=== PATIENT | female | born 1945 | race Caucasian/White ===

== ENCOUNTER 2019-04-10 13:00 | Emergency (ER) | payer BC, OTHER ==
[2019-04-10] MEDS ORDERED: HYDROCODONE/APAP 10/325 TAB ONE (14:01)
[2019-04-10] MEDS ORDERED: predniSONE 20 MG TAB ONE (14:01)
[2019-04-10] MEDS ORDERED: IBUPROFEN 200 MG TAB PO ONE (14:03)
[2019-04-10] MEDS ORDERED: IBUPROFEN 400 MG TAB ONE (14:03)
--- NOTE | 2019-04-10 15:18 | RAD REPORT ---
EXAM DESCRIPTION: RAD - Foot Right 3 View - 04/10/2019 2:52 pm CLINICAL HISTORY: PAIN COMPARISON: No comparisons FINDINGS: A single lag screw with bony fusion is seen spanning the first MTP joint. Mild soft tissue swelling is seen along the lateral margin forefoot. A prominent plantar calcaneal spur is evident. N o acute fracture seen.
--- NOTE | 2019-04-10 16:14 | ER ---
Nurse's Notes [facility] Name: Marielena Leos Age: 73 yrs Sex: Female : 1945 Arrival Date: 04/10/2019 Time: 13:04 Bed 18 Private MD: Diagnosis: Calcaneal spur, right foot;Plantar Fasciitus Presentation: 04/10 13:24 Presenting complaint: Patient states: Intermittent pin pricking sensation to R foot x ss 3-4 weeks. Pt reports discomfort is much worse when laying down for a period of time and then getting back up. Transition of care: patient was not received from another setting of care. Onset of symptoms is unknown. Risk Assessment: Do you want to hurt yourself or someone else? Patient reports no desire to harm self or others. Initial Sepsis Screen: Does the patient meet any 2 criteria? No. Patient's initial sepsis screen is negative. Does the patient have a suspected source of infection? No. Patient's initial sepsis screen is negative. Care prior to arrival: None. 13:24 Method Of Arrival: Ambulatory ss 13:24 Acuity: MIHIR 5 ss Historical: - Allergies: 13:27 Codeine; ss - Home Meds: 13:51 amitriptyline 75 mg Oral tab 1 tab once daily [Active]; baclofen 10 mg Oral tab 1 tab 3 tw2 times per day [Active]; gabapentin 600 mg oral tab 1 tab 3 times per day [Active]; memantine 10 mg oral tab 1 tab 2 times per day [Active]; Zoloft 50 mg Oral tab 1 tab once daily [Active]; - PMHx: 13:27 Fibromyalgia; belkis-prince; hypertension (resolved); ss - Immunization history:: Adult Immunizations up to date. - Social history:: Smoking status: Patient/guardian denies using tobacco. - Ebola Screening: : Patient denies exposure to infectious person Patient denies travel to an Ebola-affected area in the 21 days before illness onset. Screenin:29 Abuse screen: Denies threats or abuse. Nutritional screening: No deficits noted. tw2 Tuberculosis screening: No symptoms or risk factors identified. Fall Risk Secondary diagnosis (15 points) impaired mobility. Assessment: 13:29 General: Appears in no apparent distress. Behavior is calm, cooperative, appropriate tw2 for age. Pain: Complains of pain in right foot and left foot. Neuro: Level of Consciousness is awake, alert, obeys commands, Oriented to person, place, time, situation. Cardiovascular: Patient's skin is warm and dry. Respiratory: Airway is patent Respiratory effort is even, unlabored, Respiratory pattern is regular, symmetrical. GI: No signs and/or symptoms were reported involving the gastrointestinal system. : No signs and/or symptoms were reported regarding the genitourinary system. EENT: No signs and/or symptoms were reported regarding the EENT system. Derm: No signs and/or symptoms reported regarding the dermatologic system. Musculoskeletal: Range of motion: intact in all extremities. 14:46 Reassessment: Patient appears in no apparent distress at this time. Patient and/or tw2 family updated on plan of care and expected duration. Pain level reassessed. Patient is alert, oriented x 3, equal unlabored respirations, skin warm/dry/pink. xray at bedside at this time. Patient states feeling better. 15:47 Reassessment: Patient appears in no apparent distress at this time. Patient and/or tw2 family updated on plan of care and expected duration. Pain level reassessed. Patient is alert, oriented x 3, equal unlabored respirations, skin warm/dry/pink. 15:48 Reassessment: Patient appears in no apparent distress at this time. Patient and/or tw2 family updated on plan of care and expected duration. Pain level reassessed. Patient is alert, oriented x 3, equal unlabored respirations, skin warm/dry/pink. 16:26 Reassessment: Patient appears in no apparent distress at this time. Patient and/or tw2 family updated on plan of care and expected duration. Pain level reassessed. Patient is alert, oriented x 3, equal unlabored respirations, skin warm/dry/pink. Patient states feeling better. Vital Signs: 13:27 BP 150 / 97; Pulse 88; Resp 16; Temp 98.4(O); Pulse Ox 98% on R/A; Weight 69.85 kg; ss Height 5 ft. 6 in. (167.64 cm); Pain 5/10; 13:56 BP 129 / 84; Pulse 77; Resp 16; Temp 98.1(TE); Pulse Ox 96% on R/A; mh5 14:51 BP 131 / 76; Pulse 66; Resp 17; Pulse Ox 95% on R/A; Pain 3/10; tw2 15:47 BP 125 / 64; Pulse 73; Resp 17; Pulse Ox 96% on R/A; tw2 16:26 BP 129 / 72; Pulse 69; Resp 17; Pulse Ox 99% on R/A; tw2 13:27 Body Mass Index 24.86 (69.85 kg, 167.64 cm) ED Course: 13:04 Patient arrived in ED. rg4 13:10 Jose Green MD is Attending Physician. kdr 13:24 Bed in low position. Call light in reach. tw2 13:26 Triage completed. ss 13:27 Arm band placed on left wrist. ss 13:28 Darcie Montano, RN is Primary Nurse. tw2 14:47 X-ray completed. Portable x-ray completed in exam room. Patient tolerated procedure jb2 well. 14:50 Foot Right 3 View XRAY In Process Unspecified. EDMS 16:27 No provider procedures requiring assistance completed. Patient did not have IV access tw2 during this emergency room visit. Administered Medications: 13:49 Drug: [place] 10 mg-325 mg 1 tabs Route: PO; tw2 14:47 Follow up: Response: No adverse reaction; Pain is decreased tw2 13:49 Drug: predniSONE 40 mg Route: PO; tw2 14:47 Follow up: Response: No adverse reaction tw2 13:49 Not Given (Patient Refused; pt states "i take other medication that i shouldnt take tw2 that with"): Ibuprofen 600 mg PO once 16:26 Drug: [place] (7.5 mg-325 mg) 1 tabs Route: PO; tw2 16:27 Follow up: Response: No adverse reaction; Pain is decreased tw2 Outcome: 16:13 Discharge ordered by . kdr 16:27 Discharged to home ambulatory, with family. tw2 16:27 Condition: stable 16:27 Discharge instructions given to patient, family, Instructed on discharge instructions, follow up and referral plans. no drinking with medication, no driving heavy equipment, medication usage, Demonstrated understanding of instructions, follow-up care, medications, Prescriptions given X 3. 16:28 Patient left the ED. tw2 Signatures: Dispatcher [employer] EDMS Jose Green MD MD [facility] Artie Russo jb2 Raven Alexander RN RN Darcie Montano, RN RN tw2 Yancy Aparicio 4 [facility]
--- NOTE | 2019-04-10 16:14 | EDPHYS ---
Physician Documentation [facility] Name: Marielena Leos Age: 73 yrs Sex: Female : 1945 Arrival Date: 04/10/2019 Time: 13:04 Bed 18 Private MD: ED Physician Jose Green HPI: 04/11 07:32 This 73 yrs old Female presents to ER via Ambulatory with complaints of Foot kdr Pain. 07:32 The patient presents with pain, that is chronic. The complaints affect the right foot. kdr Context: The problem was sustained at home, resulted from an unknown cause, Mechanism of Injury: the patient can partially bear weight, the patient is able to ambulate, with mild difficulty. Onset: The symptoms/episode began/occurred Has been ongoing for a year or more but acutely worse in the last 3-4 weeks without known reason. Modifying factors: The symptoms are alleviated by elevation of extremity, sitting, the symptoms are aggravated by weight bearing, movement. Associated signs and symptoms: The patient has no apparent associated signs or symptoms. Severity of symptoms: At their worst the symptoms were moderate, in the emergency department the symptoms are unchanged. The patient has experienced similar episodes in the past, chronically. The patient has not recently seen a physician. Historical: - Allergies: 04/10 13:27 Codeine; ss - Home Meds: 13:51 amitriptyline 75 mg Oral tab 1 tab once daily [Active]; baclofen 10 mg Oral tab 1 tab 3 tw2 times per day [Active]; gabapentin 600 mg oral tab 1 tab 3 times per day [Active]; memantine 10 mg oral tab 1 tab 2 times per day [Active]; Zoloft 50 mg Oral tab 1 tab once daily [Active]; - PMHx: 13:27 Fibromyalgia; belkis-prince; hypertension (resolved); ss - Immunization history:: Adult Immunizations up to date. - Social history:: Smoking status: Patient/guardian denies using tobacco. - Ebola Screening: : Patient denies exposure to infectious person Patient denies travel to an Ebola-affected area in the 21 days before illness onset. ROS: 04/11 07:32 MS/extremity: Positive for pain, of the heel of right foot. kdr 07:36 Constitutional: Negative for fever, chills, and weight loss. kdr Exam: 07:32 Musculoskeletal/extremity: Tender to calcaneus area. kdr 07:36 Constitutional: This is a well developed, well nourished patient who is awake, alert, kdr and in no acute distress. Vital Signs: 04/10 13:27 BP 150 / 97; Pulse 88; Resp 16; Temp 98.4(O); Pulse Ox 98% on R/A; Weight 69.85 kg; ss Height 5 ft. 6 in. (167.64 cm); Pain 5/10; 13:56 BP 129 / 84; Pulse 77; Resp 16; Temp 98.1(TE); Pulse Ox 96% on R/A; mh5 14:51 BP 131 / 76; Pulse 66; Resp 17; Pulse Ox 95% on R/A; Pain 3/10; tw2 15:47 BP 125 / 64; Pulse 73; Resp 17; Pulse Ox 96% on R/A; tw2 16:26 BP 129 / 72; Pulse 69; Resp 17; Pulse Ox 99% on R/A; tw2 13:27 Body Mass Index 24.86 (69.85 kg, 167.64 cm) ss MDM: 16:13 Patient medically screened. kdr 04/11 07:32 Data reviewed: vital signs, nurses notes, radiologic studies. Counseling: I had a kdr detailed discussion with the patient and/or guardian regarding: the historical points, exam findings, and any diagnostic results supporting the discharge/admit diagnosis, radiology results, the need for outpatient follow up. 04/10 13:42 Order name: Foot Right 3 View XRAY; Complete Time: 16:12 kdr Administered Medications: 04/10 13:49 Drug: [place] 10 mg-325 mg 1 tabs Route: PO; tw2 14:47 Follow up: Response: No adverse reaction; Pain is decreased tw2 13:49 Drug: predniSONE 40 mg Route: PO; tw2 14:47 Follow up: Response: No adverse reaction tw2 13:49 Not Given (Patient Refused; pt states "i take other medication that i shouldnt take tw2 that with"): Ibuprofen 600 mg PO once 16:26 Drug: [place] (7.5 mg-325 mg) 1 tabs Route: PO; tw2 16:27 Follow up: Response: No adverse reaction; Pain is decreased tw2 Disposition: 04/10/19 16:13 Discharged to Home. Impression: Calcaneal spur, right foot, Plantar Fasciitus. - Condition is Stable. - Discharge Instructions: Heel Spur, Plantar Fasciitis. - Prescriptions for Medrol (Richard) 4 mg Oral Tablets, Dose Pack - take 1 tablet by ORAL route as directed - follow package instructions; 1 packet. Ibuprofen 600 mg Oral Tablet - take 1 tablet by ORAL route every 6 hours As needed take with food; 30 tablet. Tramadol 50 mg Oral Tablet - take 1 tablet by ORAL route every 8 hours as needed; 12 tablet. - Medication Reconciliation Form, Thank You Letter, Prescription Opioid Use form. - Follow up: Private Physician; When: 2 - 3 days; Reason: If symptoms return, Further diagnostic work-up, Recheck today's complaints, Continuance of care, Re-evaluation by your physician. - Problem is an acute exacerbation. - Symptoms have improved. Signatures: Dispatcher [employer] EDMS Jose Green MD MD kdr Raven Alexander RN RN ss Darcie Montano RN RN tw2 Corrections: (The following items were deleted from the chart) 16:28 16:13 04/10/2019 16:13 Discharged to Home. Impression: Calcaneal spur, right foot; tw2 Plantar Fasciitus. Condition is Stable. Forms are Medication Reconciliation Form, Thank You Letter, Antibiotic Education, Prescription Opioid Use. Follow up: Private Physician; When: 2 - 3 days; Reason: If symptoms return, Further diagnostic work-up, Recheck today's complaints, Continuance of care, Re-evaluation by your physician. Problem is an acute exacerbation. Symptoms have improved. kdr
[2019-04-10] MEDS ORDERED: HYDROCODONE/APAP 7.5/325 MG TAB ONE (16:37)
== END 2019-04-10 16:28 | disposition home or self-care (01) ==
LOC: ER 13:00
DX: M77.31 Calcaneal spur, right foot (principal); M72.2 Plantar fascial fibromatosis
CPT/HCPCS: 99283; J7512

== ENCOUNTER 2022-10-04 09:17 | Emergency (ER) | payer OTHER ==
--- OUTSIDE RECORDS SUMMARY | 2022-10-04 09:24 | XMS REPORT | Continuity of Care Document ---
:1945 Author Organization [facility] t Address [address] [place] [address] Care Team Providers Name Role Phone Janusz Gross MD Primary Care Physician [phone] JIM MARTINEZ Attending Clinician Unavailable LIZ NAVARRO Attending Clinician Unavailable LAB90 Attending Clinician Unavailable Janusz Gross MD Attending Clinician Aguilar Banda MA Attending Clinician Unavailable Deon Milian MD Attending Clinician [phone] Cecily Lainez Attending Clinician William Gutiérrez MD Attending Clinician Bertin Arias MD Attending Clinician Angelia Remy Attending Clinician MD WILLIAM GUTIÉRREZ Attending Clinician Unavailable Maria M Pickett NP Attending Clinician Lilliana Giron MD Attending Clinician Kirstin Marks MA Attending Clinician Unavailable Lm Arthur RN Attending Clinician Unavailable Randa Reyna MA Attending Clinician Unavailable Rachel Perez MA Attending Clinician Unavailable Suma Bowman MA Attending Clinician Unavailable Carmencita Mg MA Attending Clinician Unavailable NAA MCARTHUR Attending Clinician Unavailable PEDRO PABLO HOLLAND Attending Clinician Unavailable JESSICA GRAHAM Attending Clinician Unavailable OLGA LIDIA MCKEON Attending Clinician Unavailable LINDA HAMEED Attending Clinician Unavailable LISA LOVE Admitting Clinician Unavailable WILLIAM GUTIÉRREZ Admitting Clinician Unavailable MD WILLIAM GUTIÉRREZ Admitting Clinician Unavailable Payers Payer Name Policy Type Policy Number Effective Date Expiration Date Fredo GUSTAFSON MA PPO 5 [id number] 2020 00:00:00 Problems Condition Condition Condition Status Onset Resolution Last Treating Co mments Source Name Details Category Date Date Treatment Clinician Date Primary Primary Disease Active 2021-10 Kaela hypertensi hypertensi 2-06 Se ybold on on 00:00: - 00 Externa l Other Other Disease Active 2021-10 Kaela insomnia insomnia 2-06 Seybol d 00:00: - 00 Externa l Chronic Chronic Disease Active 2021-10 Kaela bronchitis bronchitis 2-06 Se ybold 00:00: - 00 Externa l Anxiety Anxiety Disease Active 2021-10 Kaela 2-06 Seybold 00:00: - 00 Externa l Skin Skin Disease Active 2021-10 Kaela cancer of cancer of 2-06 Seyb old anterior anterior 00:00: - chest chest 00 Externa l Primary Primary Disease Active [facility] hypertensi hypertensi 07-13 [facility] on on 00:00: Hospita 00 l Mixed Mixed Disease Active [facility] hyperlipid hyperlipid 07-13 st emia emia 00:00: Hospita 00 l Colon Colon Disease Active [facility] cancer cancer 11-11 st screening screening 00:00: Hosp suhail 00 l Polyp of Polyp of Disease Active Metho di colon colon 11-11 st 00:00: Hospita 00 l Early Early Disease Active [facility] satiety satiety 11-11 st 00:00: Hospita 00 l Neuropathy Neuropathy Disease Active M ethodi [facility] st 00:00: Hospita 00 l Plantar Plantar Disease Active 2018-10 Overview: Meth fabiola fascial fascial - Formattin st fibromatos fibromatos 00:00: g of this Hospita is is 00 note l might be different from the original. 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 Family History Family Member Diagnosis Comments Start Date Stop Date Source Natural father Liver disease [facility] Natural mother COPD [facility] Natural mother Hypertension [facility] Social History Social Habit Start Date Stop Date Quantity Comments Source History SDOH Kaela Barajas ld - Alcohol Frequency Externa l History SDOH Kaela Barajas ld - Alcohol Std External Drinks History SDOH Kaela Barajas ld - Alcohol Binge External Tobacco use and 2022-07-13 2022-07-13 Smokeless tobacco [facility] exposure 00:00:00 00:00:00 non-user Hospital Alcohol intake 2022-07-13 2022-07-13 Current drinker Metho dist 00:00:00 00:00:00 of alcohol Hospital (finding) Alcohol Comment 2019-09-13 2019-09-13 one drink a month [facility] 00:00:00 00:00:00 Hospital Sex [birth year] At [birth year] Kaela Smallwood ybold - 00:00:00 00:00:00 External Smoking Status Start Date Stop Date Source Never smoked tobacco Kaela ribera - External Medications Ordered Filled Start Stop Current Ordering Indication Dosage Frequency Signature Comments Components Source Medication Medication Date Date Medication? Clinician (SIG) Name Name [place]-3 2021-10 Yes 1000mg Take 1,000 Ke lsey Fatty Acids 2-06 mg by Seybold (Fish Oil) 09:17: mouth 3 - 1000 MG 25 times Externa oral daily l Capsule Glucosamine 2021-10 Yes Take by Minh sey -[place]- 2-06 mouth Seybold Vit C-Mn 09:17: - (GLUCOSAMIN 25 Externa E 1500 l COMPLEX OR) Sertraline 2021-10 Yes 100mg Take 100 Ke lsey HCl 100 MG 2-06 mg by Seybold oral Tablet 09:17: mouth - 00 daily Externa l Ezetimibe 2021-10 Yes 10mg Take 10 mg Ke lsey 10 MG oral 2-06 by mouth Seybo ld Tablet 09:17: daily - 00 Externa l Azithromyci 2021-10- Yes [id number] Take 2 Kaela n 250 MG 2-06 12-12 tablets by Seyb old oral Tablet 00:00: 05:59 mouth on - 00 :00 day 1 then Externa 1 tablet l by mouth daily for 4 days thereafter . Metoprolol 2021-10 Yes 25mg Take 25 mg K elsey Succinate 0-26 by mouth Seybol d 25 MG oral 00:00: daily - TABLET SR 00 Externa 24 HR l ezetimibe 2021-10 Yes [id number] TAKE ONE Methodi (ZETIA) 10 0-[address] mg tablet 00:00: MOUTH Hospita 00 DAILY l traZODone 2021-10 Yes TAKE ONE Meth fabiola (DESYREL) 0-[address] 100 MG 00:00: MOUTH Hospita tablet 00 EVERY l NIGHT traZODone 2021- No 100mg QD Take 100 Me thodi (DESYREL) 9-21 09-[address] 100 MG 15:39: 00:00 mouth Hospita tablet 10 :00 nightly. l Trazodone Yes 100mg Take 100 Minh sey HCl 100 MG 9-21 mg by Seybold oral Tablet 00:00: mouth - 00 nightly Externa l traZODone 2021- No 100mg QD Take 1 Meth fabiola (DESYREL) 9-21 10-[address] 100 MG 00:00: 00:00 (100 mg Hospita tablet 00 :00 total) by l mouth nightly. melatonin 2021- No Take by Meth fabiola 10 mg 07-[address] capsule 11:06: 00:00 Hospita 26 :00 l glucosamine 0 Yes Take by Met disla -D3-hyaluro 07-[address] kavitha acid 10:56: Hospita 1,000 mg- 46 l 25 mcg-1.65 mg tablet metoprolol 2022- Yes [id number] 25mg QD Take 1 [facility]i succinate 07-13 tablet (25 st XL 00:00: 04:59 mg total) Hospita (TOPROL-XL) 00 :00 by mouth l 25 mg 24 hr daily. tablet ezetimibe 2021- No [id number] 10mg QD Take 1 [facility] (ZETIA) 10 07-13 tablet (10 st mg tablet 00:00: 00:00 mg total) Ho spita 00 :00 by mouth l daily. ezetimibe 2021- No [id number] 10mg QD Take 1 Methodi (ZETIA) 10 07-13 tablet (10 st mg tablet 00:00: 00:00 mg total) Ho spita 00 :00 by mouth l daily. sertraline Yes [id number] TAKE ONE Methodi (ZOLOFT) 06-[address] 100 MG 00:00: MOUTH Hospita tablet 00 DAILY l metoprolol 2021- No 25mg Q.5D Take 25 mg Methodi tartrate 06-[address] (LOPRESSOR) 15:13: 00:00 (two) Hosp suhail 25 mg 56 :00 times a l tablet day. metoprolol 2021- No Take by Met disla strickland-hydrochl 06-[address] orothiaz 15:13: 00:00 Hospita 25-12.5 mg 56 :00 l tablet extended release 24 hr metoprolol 2021- No [id number] 25mg QD Take 1 [facility] succinate 06-02 tablet (25 st XL 00:00: 00:00 mg total) Hospita (TOPROL-XL) 00 :00 by mouth l 25 mg 24 hr daily. tablet keTOROlac No 10mg Q6H Take 1 Metho di (TORadol) 05-26 tablet (10 st 10 mg 00:00: 04:59 mg total) Hospit a tablet 00 :00 by mouth l every 6 (six) hours as needed for moderate pain for up to 5 days. albuterol 2021- No [id number] 2{puff} Q8H Inhale 2 Methodi (Ventolin 05-21 09-[address] HFA) 90 00:00: 00:00 every 8 Hospit a mcg/actuati 00 :00 (eight) l on inhaler hours as needed for wheezing. azithromyci 2021- No [id number] Take 2 Methodi n 05-[address] (Zithromax 00:00: 04:59 (500 mg Hos alicia Z-Richard) 250 00 :00 total) by l MG tablet mouth daily for 1 day, THEN 1 tablet (250 mg total) daily for 4 days. traZODone 2021- No TAKE ONE Met hodi (DESYREL) 04-[address] 100 MG 00:00: 00:00 MOUTH Hospita tablet 00 :00 EVERY l EVENING amoxicillin No 500mg Q.[id number] Take 500 [facility] (AMOXIL) 04-13- [id number] mg by st 500 MG 10:30: 00:00 3D mouth 3 Hospita capsule 59 :00 (three) l times a day. albuterol 2021- No 2{puff} Q4H Inhale 2 Method[facility] (PROAIR 04-13 07-[address] HFA) 90 00:00: 04:59 every 4 Hospit a mcg/actuati 00 :00 (four) l on inhaler hours as needed for shortness of breath for up to 30 days. traZODone 2021- No TAKE ONE Met hodi (DESYREL) 01-19-[address] 100 MG 00:00: 00:00 MOUTH Hospita tablet 00 :00 EVERY l EVENING bempedoic 2021- No 180mg QD Take 180 Me thodi acid 3-17 03-[address] (Nexletol) 11:25: 00:00 mouth Hospi ta 180 mg 47 :00 every l tablet evening. ezetimibe-r 2021- No Metho di osuvastatin 3-17 09-20 st 10-10 mg 00:00: 00:00 Hospita tablet 00 :00 l ezetimibe 2021- No [id number] 10mg QD Take 1 [facility] (ZETIA) 10 17 08-04 tablet (10 st mg tablet 00:00: 00:00 mg total) Ho spita 00 :00 by mouth l daily. albuterol 2021- No [id number] 2{puff} Q8H Inhale 2 [facility] (Ventolin 1-24 07-[address] HFA) 90 00:00: 00:00 every 8 Hospit a mcg/actuati 00 :00 (eight) l on inhaler hours as needed for wheezing. albuterol 2021- No [id number] 2{puff} Q8H Inhale 2 [facility] (Ventolin 1-21 01-[address] HFA) 90 00:00: 00:00 every 8 Hospit a mcg/actuati 00 :00 (eight) l on inhaler hours as needed for wheezing. metoprolol 2021- No [id number] 25mg QD Take 1 [facility]i succinate 11-12 04-21 tablet (25 st XL 00:00: 04:59 mg total) Hospita (TOPROL-XL) 00 :00 by mouth l 25 mg 24 hr daily for tablet 90 days. sodium,pota 2021- No Drink 1 Me thodi ssium,mag 11-[address] sulfates 00:00: 00:00 directed Hosp suhail (Suprep 00 :00 for dose 1 l Bowel Prep and 1 Kit) bottle as 17.5-3.13-1 directed .6 gram for dose recon soln 2. memantine 2021- No 10mg QD Take 10 mg M ethodi (NAMENDA) 11-[address] 10 MG 11:25: 00:00 daily. Hospita tablet 18 :00 l sertraline 2021- No [id number] 100mg QD Take 1 [facility] (ZOLOFT) 11-[address] 100 MG 00:00: 00:00 (100 mg Hospita tablet 00 :00 total) by l mouth daily. sertraline 2021- No [id number] 100mg QD Take 1 [facility] (ZOLOFT) 11-[address] 100 MG 00:00: 00:00 (100 mg Hospita tablet 00 :00 total) by l mouth daily. sertraline No [id number] 100mg QD Take 1 [facility] (ZOLOFT) 11-[address] 100 MG 00:00: 00:00 (100 mg Hospita tablet 00 :00 total) by l mouth daily. traZODone 2020-10 No [id number] 100mg QD Take 1 [facility] (DESYREL) 12-[address] 100 MG 00:00: 04:59 (100 mg Hospita tablet 00 :00 total) by l mouth nightly for 90 days. bempedoic 2020-10- No [id number] 1{tbl} QD Take 1 Methodi acid 180 mg 12-[address] tablet 00:00: 05:59 mouth Hospita 00 :00 daily for l 90 days. sertraline 2020-10 No [id number] 75mg QD Take 1.5 [facility] (ZOLOFT) 50 11-[address] MG tablet 00:00: 00:00 (75 mg Hospi ta 00 :00 total) by l mouth daily. traZODone 2020-10 No [id number] 50mg QD Take 1 [facility] (DESYREL) 11-25 tablet (50 st 50 MG 00:00: 00:00 mg total) Hospit a tablet 00 :00 by mouth l nightly for 30 days. metoprolol 2020-10- No 25mg QD Take 1 Meth fabiola succinate 11-01 tablet (25 st XL 00:00: 00:00 mg total) Hospita (TOPROL-XL) 00 :00 by mouth l 25 mg 24 hr daily for tablet 90 days. Immunizations Ordered Immunization Filled Immunization Date Status Commen ts Source Name Name [place] [employer]-19 MRNA 2022-06-23 Completed [facility] VACCINATION 00:00:00 Hospital FLUZONE HIGH-DOSE PF 2022-06-01 Completed [facility] 00:00:00 Hospital Tdap 2022-02-05 Completed [facility] 00:00:00 [facility] PFIZER COVID-19 MRNA 2021-07-27 Completed Meth odist VACCINATION 00:00:00 Hospital FLUZONE HIGH-DOSE PF 2021-07-27 Completed Meth odist 00:00:00 Hospital PFIZER COVID-19 MRNA 2021-01-05 Completed [facility] VACCINATION 00:00:00 Hospital PFIZER COVID-19 MRNA 2020-12-11 Completed [facility] odist VACCINATION 00:00:00 Hospital Pneumococcal 2020-10-07 Completed [facility] Conjugate 13-Valent 00:00:00 Hospi iona FLUCELVAX QUAD PF 2020-08-[address] 00:00:00 [facility] FLUZONE HIGH-DOSE PF 2020-07-07 Completed Meth odist 00:00:00 Hospital FLUZONE QUAD 2019-07-18 Completed [facility] 00:00:00 [facility] FLUZONE QUAD 2018-06-24 Completed [facility] 00:00:00 [facility] Influenza, 2016-08-24 Completed [facility] Unspecified 00:00:00 Hospital Pneumococcal, 2015-08-24 Completed [facility] Unspecified 00:00:00 Hospital Vital Signs Vital Name Observation Time Observation Value Comments Source Systolic blood 2022-09-28 15:12:00 136 mm[Hg] Kaela Garciaold - pressure External Diastolic blood 2022-09-28 15:12:00 60 mm[Hg] Ambreen Alexander - pressure External Heart rate 2022-09-28 15:12:00 58 /min Kaela liu - External Body temperature 2022-09-28 15:12:00 35.39 Tata Ara silva Seybold - External Respiratory rate 2022-09-28 15:12:00 14 /min Ara Alexander - External Body height 2022-09-28 15:12:00 167.6 cm Kaela liu - External Body weight 2022-09-28 15:12:00 64.411 kg Kaela liu - External BMI 2022-09-28 15:12:00 22.92 kg/m2 Kaela S eybold - External Systolic blood 2022-07-13 15:55:00 145 mm[Hg] Method ist [facility] pressure Diastolic blood 2022-07-13 15:55:00 80 mm[Hg] [facility] pressure Heart rate 2022-07-13 15:55:00 52 /min [facility] Body temperature 2022-07-13 15:55:00 36.28 [facility] Respiratory rate 2022-07-13 15:55:00 20 /min [facility] Body height 2022-07-13 15:55:00 167.6 cm [facility] Body weight 2022-07-13 15:55:00 64.32 kg [facility] BMI 2022-07-13 15:55:00 22.89 kg/m2 [facility] Oxygen saturation in 2022-07-13 15:55:00 95 /min [facility] Arterial blood by Pulse oximetry Procedures Procedure Date / Time Performing Source Performed Clinician LIPID PANEL 2022-07-13 Janusz Gross 16:20:00 [facility] CBC WITH PLATELET AND DIFFERENTIAL 2022-05-26 Derek Dee 22:17:00 [facility] COMPREHENSIVE METABOLIC PANEL 2022-05-26 Saul Dee thodist 22:17:00 [facility] ESTIMATED GFR 2022-05-26 Saul Dee 22:17:[address] [facility] CT RENAL STONE PROTOCOL 2022-05-26 Saul Dee t 22:11:00 [facility] URINE CULTURE 2022-05-26 Saul Dee 22:06:00 [facility] URINALYSIS SCREEN AND MICROSCOPY, 2022-05-26 Saul Dee WITH REFLEX TO CULTURE 22:06:00 [facility] ECG ED PRELIMINARY INTERPRETATION 2022-04-13 Laury Milian 19:13:31 [facility] XR CHEST 2 VW 2022-04-13 Saul Dee 17:17:00 [facility] RESPIRATORY PATHOGEN PANEL WITH 2022-04-13 Saul Dee COVID-19 RT-PCR 16:53:00 [facility] COMPREHENSIVE METABOLIC PANEL 2022-04-13 Saul Dee [facility] 16:51:00 [facility] CBC WITH PLATELET AND DIFFERENTIAL 2022-04-13 Derek Dee 16:51:00 [facility] TROPONIN T 2022-04-13 Saul Dee 16:51:00 [facility] B NATRIURETIC PEPTIDE 2022-04-13 Saul Dee 16:51:00 [facility] ESTIMATED GFR 2022-04-13 Saul Dee 16:51:00 [facility] POC URINALYSIS DIPSTICK 2022-04-13 Cecily Love t 15:57:00 Hospital POCT RAPID STREP A 2022-04-13 Cecily Love 15:45:00 Hospital POCT INFLUENZA A/B 2022-04-13 Cecily Love 15:45:00 [facility] COVID-19 QUALITATIVE RT-PCR 2022-04-13 Cecily Love 15:42:00 [facility] SURGICAL PATHOLOGY REQUEST 2021-12-10 William Gutiérrez dist 17:17:00 [facility] COLONOSCOPY 2021-12-10 William Gutiérrez 17:00:00 [facility] ESOPHAGOGASTRODUODENOSCOPY (EGD) [facility]10 [facility] COVID-19 QUALITATIVE RT-PCR 2021-12-08 William Gutiérrez 16:38:00 [facility] MRI LUMBAR SPINE WO CONTRAST 2021-11-30 Maria M Pickettist 21:26:24 Hospital XR HIP 3-4 VIEWS BILATERAL 2021-11-30 Maria M Pickett dist 21:25:09 Hospital LIPID PANEL 2021-11-10 Janusz Gross 16:11:00 [facility] MAMMO BREAST SCREEN TOMOSYNTHESIS 2021-11-10 Janusz Gross BILATERAL 15:45:45 [facility] Plan of Care Planned Activity Planned Date Details Comments Source Future Scheduled 2022-10-04 Hepatitis C [facility] Test 08:57:38 screening Hospital (procedure) [code = 583790157] Future Scheduled 2022-10-04 65+ PNEUMOCOCCAL Methodi st Test 08:57:38 VACCINE (2 - PPSV23 Hospital if available, else PCV20) [code = 65+ PNEUMOCOCCAL VACCINE (2 - PPSV23 if available, else PCV20)] Future Scheduled 2022-10-04 COVID-19 VACCINE (5 Meth odist Test 08:57:38 - Booster for Pfizer Hospita l series) [code = COVID-19 VACCINE (5 - Booster for Pfizer series)] Future Scheduled 2022-10-04 COLONOSCOPY [facility] Test 08:57:38 SCREENING [code = Hospital COLONOSCOPY SCREENING] Future Scheduled 2022-10-04 HEPATITIS B VACCINES Postponed from M ethodist Test 08:57:38 (1 of 3 - 3-dose 1945 (Not Hospital series) [code = Indicated) HEPATITIS B VACCINES (1 of 3 - 3-dose series)] Encounters Start End Encounter Admission Attending Care Care Encounter Source Date/Time Date/Time Type Type Clinicians Facility Department ID 2022-10-04 2022-10-04 Outpatient KAELA MARTINEZ [id number] Kaela 09:45:00 09:45:00 JIM Garciaol d 2022-10-04 2022-10-04 Outpatient KAELA MARTINEZ [id number] Kaela 00:00:00 00:00:00 JIM Garciaol d 2022-10-03 2022-10-03 Outpatient KAELA NAVARRO [id number] Kaela 00:00:00 00:00:00 LIZ Barajas ld 2022-09-28 2022-09-28 Outpatient LAB90 KAELA KRAMER [id number] Kaela 10:45:00 10:45:00 Seybol d 2022-09-28 2022-09-28 Outpatient KAELA MARTINEZ [id number] Kaela 09:45:00 09:45:00 JIM Radhaol d 2022-08-18 2022-08-18 Refill Haresh, 1.2.840.1 [id number] Methodi 00:00:00 00:00:00 Janusz George 39632.1.1 738 s t 3.430.2.7 Hospit a .3.177711 l .8 2022-07-14 2022-07-14 Refill Vidya Banda.2.840.1 [id number] [id number] Methodi 00:00:00 00:00:00 Aguilar [address]1.[address] 3.430.2.7 Hospit a .3.004484 l .8 2022-07-13 2022-07-13 Office Haresh, 1.2.840.1 [id number] Methodi 11:00:00 11:25:07 Visit Gul E Rukh 95599.1.1 624 s t 3.430.2.7 Hospit a .3.444652 l .8 2022-07-13 2022-07-13 Travel 1.2.840.1 1.2.050.220 [id number] Methodi 00:00:00 00:00:[address] 3.430.2.7 0.2.7.3.698 Ho spita .3.753257 084.8 l .8 2022-07-13 2022-07-13 [facility] [id number] [place] 00:00:00 00:00:00 GUL [address] 2022-06-29 2022-06-29 Refill Haresh, 1.2.840.1 [id number] 2099 [id number] Methodi 00:00:00 00:00:00 Gul E Rukh 74022.1.1 787 s t 3.430.2.7 Hospit a .3.058569 l .8 2022-06-02 2022-06-02 Telephone Haresh, 1.2.840.1 [id number] Methodi 00:00:00 00:00:00 Gul E Rukh 34388.1.1 787 s t 3.430.2.7 Hospit a .3.605622 l .8 2022-06-01 2022-06-01 Refill Ferdousi, 1.2.840.1 [id number] 2099 [id number] Methodi 00:00:00 00:00:00 Gul E Rukh 60198.1.1 693 s t 3.430.2.7 Hospit a .3.852754 l .8 2022-05-26 2022-05-26 Emergency [facility], 1.2.840.1 [id number] Methodi 16:55:00 19:04:[address] Go 3.430.2.7 Hospit a .3.206910 l .8 2022-05-26 2022-05-26 Office Parth, 1.2.840.1 [id number] Methodi 16:15:00 16:44:42 Visit Cecily 84774.1.[address] 3.430.2.7 Hospit a .3.912207 l .8 2022-05-26 2022-05-26 Refill Haresh, 1.2.840.1 [id number] [id number] Methodi 00:00:00 00:00:00 Janusz George 52388.1.1 751 s t 3.430.2.7 Hospit a .3.779154 l .8 2022-05-26 2022-05-26 Outpatient [facility] [id number] [place] 00:00:00 00:00:[address] 2022-05-26 2022-05-26 Emergency [facility] 804 [id number] [address] [place] 00:00:00 00:00:00 DEON [address] 2022-05-25 2022-05-25 Travel 1.2.840.1 1.2.446.382 [id number] Methodi 00:00:00 00:00:[address] 3.430.2.7 0.2.7.3.698 Ho spita .3.875110 084.8 l .8 2022-05-21 2022-05-21 Office Parth, 1.2.840.1 [id number] Methodi 09:15:00 09:53:34 Visit Cecily 05627.1.[address] 3.430.2.7 Hospit a .3.156034 l .8 2022-05-212022-05-21 Outpatient [facility] [id number] [address] [place] 00:00:00 00:00:[address] 2022-05-20 2022-05-20 Travel 1.2.840.1 1.2.077.981 [id number] Methodi 00:00:00 00:00:[address] 3.430.2.7 0.2.7.3.698 Ho spita .3.877073 084.8 l .8 2022-05-10 2022-05-10 Outpatient [facility] 00:00:00 00:00:00 [id number] 2022-04-28 2022-04-28 Telephone Haresh 1.2.840.1 [id number] Methodi 00:00:00 00:00:00 Abdelrahmanjaime Gregory Ariel 86418.1.1 639 s t 3.430.2.7 Hospit a .3.371999 l .8 2022-04-16 2022-04-16 Refill Haresh, 1.2.840.1 [id number] 2099 [id number] Methodi 00:00:00 00:00:00 Janusz Hernandezdevika 13321.1.1 136 s t 3.430.2.7 Hospit a .3.688212 l .8 2022-04-13 2022-04-13 Emergency Wingkun, 1.2.840.1 [id number] Methodi 12:02:00 16:59:[address] Go 3.430.2.7 Hospit a .3.194458 l .8 2022-04-13 2022-04-13 Office Parth 1.2.840.1 [id number] Methodi 10:15:00 11:28:10 Visit Cecily 15385.1.[address] 3.430.2.7 Hospit a .3.087924 l .8 2022-04-13 2022-04-13 Documentat Parth 1.2.840.1 [id number] Methodi 00:00:00 00:00:00 ion Cecily 13875.1.[address] 3.430.2.7 Hospit a .3.363258 l .8 2022-04-13 2022-04-13 Outpatient [facility] [id number] [address] [place] 00:00:00 00:00:[address] 2022-04-13 2022-04-13 Emergency [place], [facility] 907 [id number] [place] 00:00:00 00:00:00 DEON [address] 2022-04-12 2022-04-12 Travel 1.2.840.1 1.2.804.403 [id number] Methodi 00:00:00 00:00:[address] 3.430.2.7 0.2.7.3.698 Ho spita .3.964231 084.8 l .8 2022-01-16 2022-01-16 Refill Haresh, 1.2.840.1 [id number] 2099 [id number] Methodi 00:00:00 00:00:00 Janusz George 40070.1.1 255 s t 3.430.2.7 Hospit a .3.126237 l .8 2022-01-07 2022-01-07 Office Haresh, 1.2.840.1 [id number] 2099 [id number] Methodi 10:45:00 11:38:56 Visit Janusz George 27777.1.1 295 s t 3.430.2.7 Hospit a .3.788034 l .8 2022-01-07 2022-01-07 Travel 1.2.840.1 1.2.103.775 [id number] Methodi 00:00:00 00:00:[address] 3.430.2.7 0.2.7.3.698 Ho spita .3.403333 084.8 l .8 2022-01-07 2022-01-07 Outpatient [facility] [id number] [place] 00:00:00 00:00:[address] 2021-12-15 2021-12-15 Travel 1.2.840.1 1.2.215.266 [id number] [facility] 00:00:00 00:00:[address] 3.430.2.7 0.2.7.3.698 Ho spita .3.080061 084.8 l .8 2021-12-10 2021-12-10 [facility], 1.2.840.1 [id number] Methodi 09:39:00 12:14:00 Encounter Zeid Faeq 97499.1.[address] 3.430.2.7 Hospit a .3.689987 l .8 2021-12-10 2021-12-10 Surgery [facility], 1.2.840.1 [id number] Methodi 11:15:00 12:00:00 Zeid Faeq 90432.1.[address] 3.430.2.7 Hospit a .3.612034 l .8 2021-12-10 2021-12-10 Anesthesia Bertin Arias 1.2.840.1 [id number] [facility] 11:01:00 11:31:00 Event Angelia Burk 40339.1.1 [address] 3.430.2.7 Hospit a .3.725462 l .8 2021-12-10 2021-12-10 Travel 1.2.840.1 1.2.545.055 6163 [id number] [facility] 00:00:00 00:00:[address] 3.430.2.7 0.2.7.3.698 Ho spita .3.120141 084.8 l .8 2021-12-10 2021-12-10 Outpatient [facility] 021 2100 [id number] [employer] 00:00:00 00:00:[address] 2021-12-08 2021-12-08 Outpatient [facility] 2100 [id number] [place] 00:00:00 00:00:00 ZEID [address] 2021-12-02 2021-12-02 Telephone Piyush, 1.2.840.1 [id number] 2099 [id number] [facility] 00:00:00 00:00:[address] 3.430.2.7 Hospit a .3.176134 l .8 2021-12-02 2021-12-02 Telephone Piyush, 1.2.840.1 [id number] 2099 [id number] [facility] 00:00:00 00:00:00 Maria M [address]4506.1.[address] 3.430.2.7 Hospit a .3.475488 l .8 2021-11-30 2021-11-30 [facility] Giron Lilliana 1.2.840.1 [id number] 2 [id number] [facility] 13:56:10 23:59:[address] 3.430.2.7 Hospit a .3.957526 l .8 2021-11-30 2021-11-30 [facility] Lilliana Giron 1.2.840.1 [id number] 2 [id number] [facility] 13:54:50 13:55:[address] 3.430.2.7 Hospit a .3.409934 l .8 2021-11-30 2021-11-30 Outpatient MACK LILLIANA [facility] [id number] [place] 00:00:00 00:00:[address] 2021-11-30 2021-11-30 Outpatient MACKFLORENTINORY [facility] [id number] [place] 00:00:00 00:00:[address] 2021-11-17 2021-11-17 Office Piyush, 1.2.840.1 [id number] [facility] 13:00:00 13:42:20 Visit Maria M 42413.1.[address] 3.430.2.7 Hospit a .3.712329 l .8 2021-11-17 2021-11-17 Travel 1.2.840.1 1.2.441.047 5267 [id number] [facility] 00:00:00 00:00:[address] 3.430.2.7 0.2.7.3.698 Ho spita .3.682266 084.8 l .8 2021-11-17 2021-11-17 Outpatient [facility] [id number] 481 [place] 00:00:00 00:00:[address] 2021-11-16 2021-11-16 Telephone Marks, 1.2.840.1 [id number] 2099 [id number] [facility] 00:00:00 00:00:[address] 3.430.2.7 Hospit a .3.556298 l .8 2021-11-16 2021-11-16 Telephone Haresh, 1.2.840.1 [id number] [facility] 00:00:00 00:00:00 Gujaime Gregory Ariel 35744.1.1 372 s t 3.430.2.7 Hospit a .3.340103 l .8 2021-11-16 2021-11-16 Telephone Fersneha, 1.2.840.1 [id number] [facility] 00:00:00 00:00:00 Gul Colt Ariel 10637.1.1 489 s t 3.430.2.7 Hospit a .3.542742 l .8 2021-11-12 2021-11-12 Office Fersneha, 1.2.840.1 [id number] 2099 [id number] [facility] 10:30:00 12:12:38 Visit Gul Colt Ariel 58314.1.1 714 s t 3.430.2.7 Hospit a .3.660478 l .8 2021-11-12 2021-11-12 Orders Sandhya, 1.2.840.1 [id number] [facility] 00:00:00 00:00:00 Only Lm 12727.1.[address] 3.430.2.7 Hospit a .3.257307 l .8 2021-11-12 2021-11-12 Travel 1.2.840.1 1.2.454.185 3009 [id number] [facility] 00:00:00 00:00:[address] 3.430.2.7 0.2.7.3.698 Ho spita .3.303433 084.8 l .8 2021-11-12 2021-11-12 Outpatient [facility] [id number] 998 [place] 00:00:00 00:00:[address] 2021-11-11 2021-11-11 [facility], 1.2.840.1 [id number] [facility] 11:30:00 12:15:40 Visit Zeid Faeq 68884.1.[address] 3.430.2.7 Hospit a .3.440927 l .8 2021-11-11 2021-11-11 Outpatient [facility] 2099 [id number] [place] 00:00:00 00:00:00 ZEID [address] 2021-11-10 2021-11-10 [facility], 1.2.840.1 [id number] 049 [id number] [facility] 08:56:13 23:59:00 Encounter Janusz George 40893.1.[address] 3.430.2.7 Hospit a .3.334326 l .8 2021-11-10 2021-11-10 Travel 1.2.840.1 1.2.097.789 1316 [id number] [facility] 00:00:00 00:00:[address] 3.430.2.7 0.2.7.3.698 Ho spita .3.599128 084.8 l .8 2021-11-10 2021-11-10 Outpatient [facility] [id number] [place] 00:00:00 00:00:[address] 2021-11-09 2021-11-09 [facility], 1.2.840.1 [id number] [facility] 00:00:00 00:00:00 Gul E Rukh 06457.1.1 011 s t 3.430.2.7 Hospit a .3.447475 l .8 2021-11-09 2021-11-09 Refill Reyna, 1.2.840.1 [id number] [facility] 00:00:00 00:00:[address] 3.430.2.7 Hospit a .3.370531 l .8 2021-11-09 2021-11-09 Refill Reyna, 1.2.840.1 [id number] [facility] 00:00:00 00:00:[address] 3.430.2.7 Hospit a .3.233751 l .8 2021-11-03 2021-11-03 Telephone Jesussneha, 1.2.840.1 [id number] [facility] 00:00:00 00:00:00 Janusz Gregory Ariel 70346.1.1 929 s t 3.430.2.7 Hospit a .3.550222 l .8 2021-11-03 2021-11-03 Orders Perez, 1.2.840.1 [id number] 5098 [facility] 00:00:00 00:00:00 Only Rachel Stephen 20435.1.[address] 3.430.2.7 Hospit a .3.119596 l .8 2021-10-28 2021-10-28 Telephone Colby, 1.2.840.1 [id number] 2099 [id number] [facility] 00:00:00 00:00:[address] 3.430.2.7 Hospit a .3.028349 l .8 2021-10-21 2021-10-21 Travel 1.2.840.1 1.2.498.195 8343 [id number] [facility] 00:00:00 00:00:[address] 3.430.2.7 0.2.7.3.698 Ho spita .3.647841 084.8 l .8 2021-10-15 2021-10-15 Refill Elaineusi, 1.2.840.1 [id number] 2099 [id number] [facility] 00:00:00 00:00:00 Janusz George 99026.1.1 219 s t 3.430.2.7 Hospit a .3.183157 l .8 2021-10-14 2021-10-14 Refill Saurav, 1.2.840.1 [id number] 4690 [facility] 00:00:00 00:00:[address] 3.430.2.7 Hospit a .3.714941 l .8 2021-10-05 2021-10-05 Travel 1.2.840.1 1.2.112.022 3928 [id number] [facility] 00:00:00 00:00:[address] 3.430.2.7 0.2.7.3.698 Ho spita .3.322501 084.8 l .8 2021-10-01 2021-10-01 Outpatient FERDOUSI, [facility] [id number] [place] 00:00:00 00:00:00 GUL 513 Method i 2021-09-24 2021-09-24 Outpatient [facility] [id number] [place] 00:00:00 00:00:00 075 Method i 2021-08-19 2021-08-19 Outpatient GIRON, LILLIANA [facility] [id number] [place] 00:00:00 00:00:00 920 Method i 2021-08-17 2021-08-17 Outpatient FERDOUSI, [facility] [id number] [place] 00:00:00 00:00:00 GUL 232 Method i 2021-07-23 2021-07-23 Outpatient GIRON, LILLIANA [facility] [id number] [place] 00:00:00 00:00:00 156 Method i 2021-07-15 2021-07-15 Outpatient MCARTHUR, [facility] [id number] 766 [place] 00:00:00 00:00:00 NAA 002 Method i 2021-07-07 2021-07-07 Outpatient GIRON, LILLIANA [facility] 488 [id number] [place] 00:00:00 00:00:[address] 2021-07-07 2021-07-07 Outpatient LILLIANA GIRON [facility] [id number] [place] 00:00:00 00:00:[address] 2021-06-30 2021-06-30 Outpatient LILLIANA GIRON [facility] 718 [id number] [place] 00:00:00 00:00:[address] 2021-06-30 2021-06-30 Outpatient LILLIANA GIRON [facility] [id number] [facility] [place] 00:00:00 00:00:[address] 2021-01-09 2021-01-09 Emergency HOLLAND, [facility] [id number] 576 [place] 00:00:00 00:00:00 PEDRO PABLO [address] 2021-01-05 2021-01-06 Outpatient SANTOS, [facility] [id number] [place] 00:00:00 00:00:00 JESSICA 095 Nv thodi 2020-12-11 2020-12-11 Outpatient [facility] [id number] 145 [place] 00:00:00 00:00:[address] 2020-10-20 2020-10-20 Outpatient LINDA, [facility] [id number] [place] 00:00:00 00:00:00 OLGA LIDIA 723 Metho di 2020-10-20 2020-10-20 Outpatient LINDA [facility] [id number] [place] 00:00:00 00:00:00 OLGA LIDIA [address] 2020-04-16 2020-04-16 Outpatient LINDA HAMEED [facility] 2100 [id number] [place] 00:00:00 00:00:[address] 2020-04-16 2020-04-16 Outpatient LINDA HAMEED [facility] 2100 [id number] [place] 00:00:00 00:00:[address] Results Test Description Test Time Test Comments Results Result Comments Source Lipid panel 2022-07-14 06:08:00 Test Item Value Reference Range Interpretation Comme nts Cholesterol (test code = 181 mg/dL 858-269 6469-3) Triglycerides (test code = 86 mg/dL 0-149 2571-8) HDL cholesterol (test code 55 mg/dL See_Comment [Automated message] = 2085-9) The system [employer] generated this result transmitted ref erence range: >=39. Th e reference range was not used to interpr et this result as normal/abnormal . VLDL cholesterol cee (test 16 mg/dL 5-40 code = 57660-5) LDL Chol Calc (NIH) (test 110 mg/dL 0-99 H code = 23346-3) Non-HDL cholesterol (test 126 mg/dL 0-129 code = 76014-5) ELLEN (test code = ELLEN) Performed at: [facility] [id number] Director: Sergei Marc MD, Phone: [phone] Lab Interpretation (test Abnormal code = 48812-6) [facility] [id number] 22:37:00 Test Item Value Reference Range Interpretation Comments Urine culture (test SEE COMMENT Bacteriu yobany screen code = 7683796) negative. [facility] [Presence] in Respiratory specimen by NALINI with probe [id number] 19:05:16 Test Item Value Reference Range Interpretation Comments SARS-CoV-2 (COVID-19) RNA Not detected [Presence] in Respiratory specimen by NALINI with probe detection (test code = 33701-0) Whether patient is employed in a No healthcare setting (test code = 67431-9) Whether the patient has symptoms Yes related to condition of interest (test code = 33907-3) Whether the patient was No hospitalized for condition of interest (test code = 45298-2) Whether the patient was admitted No to intensive care unit (ICU) for condition of interest (test code = 29915-3) Whether patient resides in a No congregate care setting (test code = 81066-3) status (test code = No 91349-6) Date and time of symptom onset Unknown (test code = 51097-8) [facility] urinalysis [id number] 15:57:00 Test Item Value Reference Range Interpretation Comments Color urine, POC (test Yellow code = 6909997) Clarity urine, POC (test Clear code = 5657907) Glucose urine, POC (test Negative Negative code = 1288752) Bilirubin urine, POC Negative Negative (test code = 2031764) Ketones urine, POC (test Negative Negative code = 5414812) Specific gravity urine, >/=1.030 1.005-1.030 POC (test code = 3441701) Blood urine, POC (test Negative Negative code = 8769746) pH urine, POC (test code See_Comment [A utomated message] = 9821092) The system [employer] generated this result transmitted ref erence range: 5.0, 5.5 , 6.0, 6.5, 7.0, 7.5, 8.0, 8.5. The refere nce range was not u sed to interpret this result as normal/abnor mal. Protein urine, POC (test 3+ Negative A code = 1608497) Urobilinogen urine, POC <2.0 See_Comment [Au tomated message] (test code = 3441598) The sy stem which generated this result transmitted ref erence range: <=2.0. T he reference range was not used to int erpret this result as normal/abnormal . Nitrite urine, POC (test Negative Negative code = 4868351) Leukocyte esterase Trace Negative A urine, POC (test code = 7895972) Lab Interpretation (test Abnormal code = 39306-8) [facility] rapid strep [id number] 15:45:00 Test Item Value Reference Range Interpretation Comments Rapid strep A antigen result (test Negative Negative code = 54937-4) Lab Interpretation (test code = Normal 24906-4) [facility] Influenza [id number] 15:45:00 Test Item Value Reference Range Interpretation Comments Rapid Influenza A Ag (test code = Negative 77884-4) Rapid Influenza B Ag (test code = Negative 81822-6) Lab Interpretation (test code = Normal 79819-7) [facility] [id number] 22:12:52 Test Item Value Reference Range Interpretation Comments Case number (test code = [id number]) Surgical pathology See link below for report (test code = PDF Lab Report [id number]) Result status (test code This is Final Report = [id number]) for [id number] [facility] RNA [Presence] in Respiratory specimen by NALINI with probe [id number] 19:15:15 Test Item Value Reference Range Interpretation Comments SARS-CoV-2 (COVID-19) RNA Not detected Not-Detected [Presence] in Respiratory specimen by NALINI with probe detection (test code = 47889-8) Whether patient is employed in a healthcare setting (test code = 24748-6) Whether the patient has symptoms related to condition of interest (test code = 96391-4) Patient was hospitalized because of this condition (test code = 18961-5) Whether the patient was admitted to intensive care unit (ICU) for condition of interest (test code = 23222-0) Whether patient resides in a congregate care setting (test code = 85307-5) [facility]
[2022-10-04 09:54] LABS: Absolute Lymphocytes (CBC) 1.6 K/uL (0.7-4.9); Hematocrit 38.1 % (36.0-45.0); Lymphocytes % 29.8 % (15.3-44.8); MCV 94.4 fL (80-100); MPV 7.4 fL (7.6-11.3); RBC Red Blood Cell Count 4.04 M/uL (3.86-4.86)
[2022-10-04 09:59] LABS: Protime INR 0.99
[2022-10-04 10:15] LABS: Magnesium 2.3 mg/dL (1.6-2.4); Potassium 3.7 mmol/L (3.5-5.1); Troponin High Sensitivity 4.8 pg/mL (<58.9)
--- NOTE | 2022-10-04 10:16 | RAD REPORT ---
EXAM DESCRIPTION: CT - Head Brain Wo Cont - 10/04/2022 10:01 am CLINICAL HISTORY: Ataxia COMPARISON: None TECHNIQUE: Computed axial tomography of the head was obtained. IV contrast was not requested. All CT scans are performed using dose optimization technique as appropriate and may include automated exposure control or mA/KV adjustment according to patient size. FINDINGS: An intracranial bleed is not seen . The ventricles are normal in caliber. No extra-axial fluid collection is noted. Mild delayed low-density areas within periventricular, deep and subcortical white matter likely repre sent ischemic changes secondary to small vessel disease. Fluid within the sinuses/ mastoids is not seen. IMPRESSION: No acute intracranial abnormality is seen. If patient's symptoms persist MRI of the bra in would be recommended.
--- NOTE | 2022-10-04 11:07 | RAD REPORT ---
EXAM DESCRIPTION: Tomy Single View10/04/2022 10:45 am CLINICAL HISTORY: CVA COMPARISON: October 2021 FINDINGS: The lungs appear clear of acute infiltrate. The heart is normal size IMPRESSION: No acute abnormalities displayed
--- NOTE | 2022-10-04 11:25 | RAD REPORT ---
EXAM DESCRIPTION: MRI - Brain Wo Cont - 10/04/2022 11:08 am CLINICAL HISTORY: Ataxia COMPARISON: Head CT October 04, 2022 TECHNIQUE: Axial, sagittal, and coronal magnetic resonance images of the brain were obtained. FINDINGS: Mild to moderate signal within periventricular, deep and subcortical white matter probably ischemic changes secondary to small vessel disease Diffusion-weighted/ADC mapping does not reveal evidence of acute infarction. The ventricles are normal caliber. An extra-axial fluid collection is not noted. Fluid within the sinuses/mastoids is not seen IMPRESSION: No acute intracranial abnormality noted
--- NOTE | 2022-10-04 12:01 | ER ---
Nurse's Notes [facility] Name: Marielena Smiley Age: 77 yrs Sex: Female : 1945 Arrival Date: 10/04/2022 Time: 09:21 Bed IW3 Private MD: Diagnosis: Ataxia, unspecified Presentation: 10/04 09:32 Chief complaint: Patient states: the last couple of says i started walking into damian, jh5 i am dizzy lately. Coronavirus screen: Vaccine status: Patient reports receiving the 2nd dose of the covid vaccine. Client denies travel out of the [place] in the last 14 days. Ebola Screen: Patient negative for fever greater than or equal to 101.5 degrees Fahrenheit, and additional compatible Ebola Virus Disease symptoms Patient denies exposure to infectious person. Patient denies travel to an Ebola-affected area in the 21 days before illness onset. Initial Sepsis Screen: Does the patient meet any 2 criteria? No. Patient's initial sepsis screen is negative. Does the patient have a suspected source of infection? No. Patient's initial sepsis screen is negative. Risk Assessment: Do you want to hurt yourself or someone else? Patient reports no desire to harm self or others. Onset of symptoms was October 02, 2022. 09:32 Method Of Arrival: Wheelchair [facility] 09:32 Acuity: MIHIR 3 jh5 Triage Assessment: 09:37 The onset of the patients symptoms was. General: Appears in no apparent distress. jh5 uncomfortable, slender, Behavior is calm, cooperative, appropriate for age. Pain: Denies pain. Neuro: Reports dizziness, trouble walking. Historical: - Allergies: 12:56 No Known Allergies; ap3 - PMHx: 09:37 belkis-prince; Fibromyalgia; hypertension (resolved); jh5 - Immunization history:: Adult Immunizations up to date. - Social history:: Smoking status: Patient denies any tobacco usage or history of. Screenin:30 Fall Risk Fall in past 12 months (25 points). Secondary diagnosis (15 points) IV access ap3 (20 points). Ambulatory Aid- Crutches/Cane/Walker (15 pts). Gait- Weak (10 pts.). Mental Status- Oriented to own ability (0 pts). Total Kirby Fall Scale indicates High Risk Score (45 or more points). Fall prevention measures have been instituted. Side Rails Up X 2 Placed Close to Nursing Station Frequent Obs/Assessments Occuring Family Present and informed to notify staff if the need to leave the bedside As available patient and family educated on Fall Prevention Program and Strategies. 12:55 Abuse screen: Denies threats or abuse. Nutritional screening: No deficits noted. ap3 Tuberculosis screening: No symptoms or risk factors identified. Vital Signs: 09:32 BP 200 / 83; Pulse 52; Resp 16; Temp 97.9; Pulse Ox 99% ; Weight 62.6 kg; Height 5 ft. jh5 6 in. (167.64 cm); Pain 0/10; 12:01 BP 180 / 75; Pulse 51; ap3 09:32 Body Mass Index 22.28 (62.60 kg, 167.64 cm) jh5 NIH Stroke Scale Scores: 10:36 NIHSS Score: 1 [facility] ED Course: 09:21 Patient arrived in ED. rg4 09:28 Francisco J Hines PA is PHCP. jr8 09:28 Ethan Yeung DO is Attending Physician. jr8 09:37 Triage completed. jh5 09:37 Arm band placed on right wrist. jh5 10:03 Head Brain Wo Cont In Process Unspecified. EDMS 10:09 XRAY Chest (1 view) In Process Unspecified. EDMS 11:10 Brain Wo Cont In Process Unspecified. EDMS 12:00 Greg Arrieta MD is Referral Physician. jr8 12:00 Josué Johnson MD is Referral Physician. jr8 12:55 No provider procedures requiring assistance completed. IV discontinued, intact, ap3 bleeding controlled, No redness/swelling at site. Pressure dressing applied. 12:56 Patient has correct armband on for positive identification. Adult w/ patient. ap3 Administered Medications: No medications were administered Medication: 12:56 VIS not applicable for this client. ap3 Outcome: 12:00 Discharge ordered by . jr8 12:56 Discharged to home ambulatory. ap3 12:56 Condition: good 12:56 Discharge instructions given to patient, Instructed on discharge instructions, follow up and referral plans. Demonstrated understanding of instructions, follow-up care. 12:56 Patient left the ED. ap3 NIH Stroke Scale - NIH Stroke Score Date: 10/04/2022 Time: 10:36 Total Score = 1 1a. Level of Consciousness (LOC) - 0(Alert) 1b. Level of Consciousness (LOC) (Month \T\ Age) - 0(Both) 1c. LOC Commands (Open \T\ Closes Eyes/Support Service Tech) - 0(Both) 2. Best Gaze (Lateral Gaze Paresis) - 0(Normal) 3. Visual Field Loss - 0(No visual loss) 4. Facial Palsy - 0(Normal) 5a. Left Arm: Motor (10-second hold) - 0(No drift) 5b. Right Arm: Motor (10-second hold) - 0(No drift) 6a. Left Leg: Motor (5-second hold - always test supine) - 0(No drift) 6b. Right Leg: Motor (5-second hold - always test supine) - 0(No drift) 7. Limb Ataxia (finger/nose \T\ heel/hernandez - test with eyes open) - 1(Present in one limb) 8. Sensory Loss (pinprick arms/legs/face) - 0(Normal) 9. Best Language: Aphasia (description/naming/reading) - 0(No aphasia) 10. Dysarthria (speech clarity - read or repeat words) - 0(Normal) 11. Extinction and Inattention (visual/tactile/auditory/spatial/personal) - 0(No abnormality) Initials: andre Signatures: Dispatcher [employer] EDFrancisco J Baker PA PA jr8 Yancy Aparicio4 Kilye Ruiz RN RN margareth3 Jackelyn Benites RN RN 5 Corrections: (The following items were deleted from the chart) 09:37 09:37 Allergies: Codeine; [place] [id number] 09:39 09:32 Pulse 52bpm; Resp 16bpm; Pulse Ox 99%; Temp 97.9F; 62.6 kg; Height 5 ft. [facility] 6 in.; BMI: 22.2; Pain 0/10; [facility]
--- NOTE | 2022-10-04 12:01 | EDPHYS ---
Physician Documentation [facility] Name: Marielena Smiley Age: 77 yrs Sex: Female : 1945 Arrival Date: 10/04/2022 Time: 09:21 Bed IW3 Private MD: ED Physician Ethan Yeung HPI: 10/04 10:36 This 77 yrs old Female presents to ER via Wheelchair with complaints of Trouble Walking.jr8 10:36 The patient presents to the emergency department with difficult walking, the patient is jr8 off balance. Onset: The symptoms/episode began/occurred gradually, 2 day(s) ago. Context: occurred at home. Associated signs and symptoms: Pertinent positives: headache. Severity of symptoms: At their worst the symptoms were moderate in the emergency department the symptoms are unchanged. Patient's baseline: Neuro: alert and fully oriented, Motor: no deficits, Ambulation: walks without assistance, Speech: normal. The patient has not experienced similar symptoms in the past. The patient has not recently seen a physician. sudden onset difficulty walking for 2 days. [place] worse today. Had headache today as well . Historical: - Allergies: 12:56 No Known Allergies; ap3 - PMHx: 09:37 belkis-prince; Fibromyalgia; hypertension (resolved); jh5 - Immunization history:: Adult Immunizations up to date. - Social history:: Smoking status: Patient denies any tobacco usage or history of. ROS: 10:36 Eyes: Negative for injury, pain, redness, and discharge, ENT: Negative for injury, jr8 pain, and discharge, Neck: Negative for injury, pain, and swelling, Cardiovascular: Negative for chest pain, palpitations, and edema, Respiratory: Negative for shortness of breath, cough, wheezing, and pleuritic chest pain, Abdomen/GI: Negative for abdominal pain, nausea, vomiting, diarrhea, and constipation, Back: Negative for injury and pain, MS/Extremity: Negative for injury and deformity, Skin: Negative for injury, rash, and discoloration. 10:36 Neuro: Positive for dizziness, gait disturbance, headache. Exam: 10:36 Constitutional: This is a well developed, well nourished patient who is awake, alert, jr8 and in no acute distress. Eyes: Pupils equal round and reactive to light, extra-ocular motions intact. Lids and lashes normal. Conjunctiva and sclera are non-icteric and not injected. Cornea within normal limits. Periorbital areas with no swelling, redness, or edema. Neck: Trachea midline, no thyromegaly or masses palpated, and no cervical lymphadenopathy. Supple, full range of motion without nuchal rigidity Cardiovascular: Regular rate and rhythm with a normal S1 and S2. No gallops, murmurs, or rubs. Normal PMI, no JVD. No pulse deficits. Respiratory: Lungs have equal breath sounds bilaterally, clear to auscultation and percussion. No rales, rhonchi or wheezes noted. No increased work of breathing, no retractions or nasal flaring. Abdomen/GI: Soft, non-tender, with normal bowel sounds. No distension or tympany. No guarding or rebound. No evidence of tenderness throughout. Skin: Warm, dry with normal turgor. Normal color with no rashes, no lesions, and no evidence of cellulitis. MS/ Extremity: Pulses equal, no cyanosis. Neurovascular intact. Full, normal range of motion. 10:36 Neuro: Orientation: to person, place \T\ time. Mentation: is normal, Memory: is normal, Cranial nerves: CN I not tested, visual mohr are intact. extraocular movements are intact, Facial palsy and sensory deficits are absent. Speech is clear and appropriate. Tongue strength is normal, Cerebellar function: dysmetria is noted on the left, Motor: moves all fours, Sensation: no obvious gross deficits, seizure activity, is not displayed by the patient, Abnormal movements: there are no abnormal movements. 12:04 ECG was reviewed by the Attending Physician. 8 Vital Signs: 09:32 BP 200 / 83; Pulse 52; Resp 16; Temp 97.9; Pulse Ox 99% ; Weight 62.6 kg; Height 5 ft. jh5 6 in. (167.64 cm); Pain 0/10; 12:01 BP 180 / 75; Pulse 51; ap3 09:32 Body Mass Index 22.28 (62.60 kg, 167.64 cm) 5 NIH Stroke Scale Scores: 10:36 NIHSS Score: 1 jr8 MDM: 09:45 Patient medically screened. 8 11:29 Data reviewed: vital signs, nurses notes, lab test result(s), radiologic studies, CT jr8 scan, MRI. Data interpreted: Pulse oximetry: on room air is 99 %. Interpretation: normal. Counseling: I had a detailed discussion with the patient and/or guardian regarding: the historical points, exam findings, and any diagnostic results supporting the discharge/admit diagnosis, lab results, radiology results, the need for outpatient follow up, for definitive care, a neurologist, to return to the emergency department if symptoms worsen or persist or if there are any questions or concerns that arise at home. 12:02 Data reviewed: EKG. Test interpretation: by ED physician or midlevel provider: ECG, jr8 plain radiologic studies. Special discussion: Based on the history and exam findings, there is no indication for further emergent testing or inpatient evaluation. I discussed with the patient/guardian the need to see the neurologist for further evaluation of the symptoms. ED course: Discussed with patient that labs, CT, MRI were without acute findings. No acute stroke on MRI or CT. Does show microvascular changes consistent with chronic disease but otherwise no other acute findings. Recommended seeing neurology at this point. Patient has walker at home for stabilization has been doing well in the emergency room. Blood pressure has come down to a reasonable level. We will continue to take her meds at home. If she worsens any point time knows to come back immediately for further evaluation. 2 neurologists were given to her to follow-up with whoever was first available.. 10/04 09:44 Order name: Basic Metabolic Panel; Complete Time: 10:35 10/04 09:44 Order name: CBC with Diff; Complete Time: 10:04 [facility] 10/04 09:44 Order name: Magnesium; Complete Time: 10:35 10/04 09:44 Order name: NT PRO-BNP; Complete Time: 10:35 [facility] 10/04 09:44 Order name: PT-INR; Complete Time: 10:04 [facility] 10/04 09:44 Order name: Troponin HS; Complete Time: 10:35 [facility] 10/04 09:44 Order name: XRAY Chest (1 view); Complete Time: 11:13 10/04 09:44 Order name: EKG; Complete Time: 09:44 10/04 09:44 Order name: Cardiac monitoring [facility] 10/04 09:44 Order name: COVID-19 SARS RT PCR; Complete Time: 10:38 8 10/04 09:51 Order name: Head Brain Wo Cont; Complete Time: 10:23 EDMS 10/04 10:37 Order name: Brain Wo Cont; Complete Time: 11:28 EDMS 10/04 09:44 Order name: EKG - Nurse/Tech; Complete Time: 11:58 jr8 10/04 09:44 Order name: IV Saline Lock; Complete Time: 10:05 8 10/04 09:44 Order name: Labs collected and sent; Complete Time: 10:05 8 10/04 09:44 Order name: O2 Per Protocol [facility] 10/04 09:44 Order name: O2 Sat Monitoring jr8 EC:04 Rate is 51 beats/min. Rhythm is regular, Sinus bradycardia. QRS [place] is Normal. SD jr8 interval is prolonged at 214 msec. QRS interval is normal. QT interval is normal at 460 msec. No Q waves. T waves are Normal. No ST changes noted. Clinical impression: 1st degree heart block and Sinus bradycardia. Interpreted by me. Reviewed by me. Administered Medications: No medications were administered Disposition: 18:23 Co-signature as Attending Physician, Ethan STEVENS was immediately available onsite ms3 in the emergency department for consultation in the care of the patient. Disposition Summary: 10/04/22 12:00 Discharge Ordered Location: Home jr Problem: new jr8 Symptoms: have improved jr8 Condition: Stable jr8 Diagnosis - Ataxia, unspecified jr8 Followup: jr8 - With: Greg Arrieta MD - When: 1 - 2 days - Reason: Recheck today's complaints, Continuance of care, Re-evaluation by your physician Followup: jr8 - With: Josué Johnson MD - When: 2 - 3 days - Reason: Recheck today's complaints, Continuance of care, Re-evaluation by your physician Discharge Instructions: - Discharge Summary Sheet jr8 - Fall Prevention in the Home, Adult jr8 - How to Use a Walker jr8 - Ataxia jr8 Forms: - Medication Reconciliation Form jr8 - Thank You Letter jr8 - Antibiotic Education jr8 - Prescription Opioid Use jr8 NIH Stroke Scale - NIH Stroke Score Date: 10/04/2022 Time: 10:36 Total Score = 1 1a. Level of Consciousness (LOC) - 0(Alert) 1b. Level of Consciousness (LOC) (Month \T\ Age) - 0(Both) 1c. LOC Commands (Open \T\ Closes Eyes/Dynamite Cartridge Crimper) - 0(Both) 2. Best Gaze (Lateral Gaze Paresis) - 0(Normal) 3. Visual Field Loss - 0(No visual loss) 4. Facial Palsy - 0(Normal) 5a. Left Arm: Motor (10-second hold) - 0(No drift) 5b. Right Arm: Motor (10-second hold) - 0(No drift) 6a. Left Leg: Motor (5-second hold - always test supine) - 0(No drift) 6b. Right Leg: Motor (5-second hold - always test supine) - 0(No drift) 7. Limb Ataxia (finger/nose \T\ heel/hernandez - test with eyes open) - 1(Present in one limb) 8. Sensory Loss (pinprick arms/legs/face) - 0(Normal) 9. Best Language: Aphasia (description/naming/reading) - 0(No aphasia) 10. Dysarthria (speech clarity - read or repeat words) - 0(Normal) 11. Extinction and Inattention (visual/tactile/auditory/spatial/personal) - 0(No abnormality) Initials: andre Signatures: Dispatcher [employer] EDMS Francisco J Hines PA PA jr8 Kiley Ruiz RN RN [email or web address] Ethan Yeung DO DO ms3 Jackelyn Benites RN RN jh5 Corrections: (The following items were deleted from the chart) 09:37 09:37 Allergies: Jenny; jj [facility]
[2022-10-04 13:05] VITALS: TEMP 97.9; O2SAT 99
[2022-10-04 13:06] VITALS: BP 180/75
--- NOTE | 2022-10-05 14:37 | EKG ---
Test Date: 2022-10-04 Test Time: 11:55:23 [employer]: ALP MEASUREMENT RESULTS: Intervals: Rate: 51 WV: 214 QRSD: 90 QT: 500 QTc: 460 [place]: P: 42 WV: 214 QRS: 55 T: 50 INTERPRETIVE STATEMENTS: Sinus bradycardia with 1st degree AV block Otherwise normal ECG No previous ECG available for comparison Electronically Signed On 10-05-22 14:34:44 EDUCATIONAL INSTITUTION PRESIDENT by Zaki Hendrickson
== END 2022-10-04 12:56 | disposition home or self-care (01) ==
LOC: ER 09:17
DX: R27.0 Ataxia, unspecified (principal); Z20.822 Contact with and (suspected) exposure to COVID-19
CPT/HCPCS: 93005; 85025; 80048; 36415; 83735; 85610; 84484; 83880; 70450; 71045; 70551; U0003; 99283

== ENCOUNTER 2023-03-17 20:34 | Emergency (ER) | payer OTHER ==
--- OUTSIDE RECORDS SUMMARY | 2023-03-17 20:49 | XMS REPORT | Continuity of Care Document ---
:1945 Author Organization [facility] t Address [address] [facility] [address] [place] [address] Care Team Providers Name Role Phone Janusz Gross MD Primary Care Physician [phone] Janusz Gross MD Attending Clinician ELIZABETH SORTO Attending Clinician Unavailable JIM MARTINEZ Attending Clinician Unavailable LIZ NAVARRO Attending Clinician Unavailable [facility] Attending Clinician Unavailable Aguilar Banda MA Attending Clinician Unavailable Rukhsana CALVIN, Bakari Quintanilla Attending Clinician [phone] Cecily Lainez Attending Clinician Marla CALVIN, William Schaffer Attending Clinician Bertin Arias MD Attending Clinician [...] Number Effective Date Expiration Date Fredo GUSTAFSON DC PPO 5 [id number] 2020 00:00:00 Problems Condition Condition Condition Status [...] Disease Active [facility] colon colon 11-11 00:00: Hospita 00 l 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 Social History Social Habit Start Date Stop Date Quantity Comments Source Sexual orientation 2019-10-03 Heterosexual [facility] odist 09:24:58 (finding) Hospital Gender identity 2018-12-18 Identifies as Method ist 20:11:18 female gender Hospital (finding) History SDOH Kaela Seybo ld - Alcohol Frequency Externa l History SDOH Kaela Seybo ld - Alcohol Std Drinks Software Sales Executive al History SDOH Kaela Seybo ld - Alcohol Binge External History of Social 2022-12-27 2022-12-[address] function 00:00:00 00:00:00 Hospital Tobacco use and 2022-07-13 2022-07-13 Smokeless tobacco [facility] exposure 00:00:00 00:00:00 non-user Hospital Alcohol intake 2022-07-13 2022-07-13 Current drinker of [facility] 00:00:00 00:00:00 alcohol (finding) Hospita l Alcohol Comment 2019-09-13 2019-09-13 one drink a month [facility] 00:00:00 00:00:00 Hospital Sex [birth year] At [birth year] Kaela arango - 00:00:00 00:00:00 External Smoking Status Start Date Stop Date Source Never smoked tobacco Kaela Garcia old - External Medications Ordered Filled Start Stop Current Ordering Indication Dosage Frequency Signature Comments Components Source Medication Medication Date Date Medication? Clinician (SIG) Name Name sertraline Yes [id number] TAKE ONE [facility] (ZOLOFT) 2-[address] 100 MG 00:00: MOUTH Hospita tablet 00 DAILY l Sertraline 2021-10 Yes 100mg Take 100 Ke lsey HCl 100 MG 2-14 mg by Seybold oral Tablet 09:00: mouth - 29 daily Externa l Ezetimibe 2021-10 Yes 10mg Take 10 mg Ke lsey 10 MG oral 2-14 by mouth Seybo ld Tablet 09:00: daily - 29 Externa l Tullos-3 2021-10 Yes 1000mg Take 1,000 Ke lsey Fatty Acids 2-14 mg by Seybold (Fish Oil) 09:00: mouth 3 - 1000 MG 29 times Externa oral daily l Capsule Glucosamine 2021-10 Yes Take by Minh rider -[place]- 2-14 mouth Seybold Vit C-Mn 09:00: - (GLUCOSAMIN 29 Externa E 1500 l COMPLEX OR) Glucosamine 2021-10 Yes Take by Minh rider -Vit 2-14 mouth Seybold D-Hyaluron 09:00: - Acd (Isabell 29 Externa Glucosamine l Plus Vit D3) 9554-4822-1 .65 MG-UNIT-MG oral Tablet Tullos-3 2021-10 Yes 1000mg Take 1,000 Ke lsey Fatty Acids 2-06 mg by Seybold (Fish Oil) 09:17: mouth 3 - 1000 MG 25 times Externa oral daily l Capsule Glucosamine 2021-10 Yes Take by Minh rider -[place]- 2-06 mouth Seybold Vit C-Mn 09:17: [...] daily - 00 Externa l Azithromyci 2021-10- No [id number] Take 2 Kaela n 250 MG 2-06 12-12 tablets by Seyb old oral Tablet 00:00: 05:59 mouth on - 00 :00 day 1 then Externa 1 tablet l by mouth daily for 4 days thereafter . ezetimibe 2021-10 Yes [id number] TAKE ONE [facility] (ZETIA) 10 0-[address] mg tablet 00:00: MOUTH [facility]ospita 00 DAILY l traZODone 2021-10 Yes TAKE ONE Meth fabiola (DESYREL) 0-[address] 100 MG 00:00: MOUTH [facility]ospita tablet 00 EVERY l NIGHT ezetimibe 2021-10 Yes [id number] TAKE ONE [facility] (ZETIA) 10 0-[address] mg tablet 00:00: MOUTH [facility]ospita 00 DAILY l traZODone 2021-10 Yes TAKE ONE Meth fabiola (DESYREL) 0-[address] 100 MG 00:00: MOUTH [facility]ospita tablet 00 EVERY l NIGHT ezetimibe 2021-10 Yes [id number] TAKE ONE [facility] (ZETIA) 10 0-[address] mg tablet 00:00: MOUTH [facility]ospita 00 DAILY l traZODone 2021-10 Yes TAKE ONE Meth fabiola (DESYREL) 0-[address] 100 MG 00:00: MOUTH [facility]ospita tablet 00 EVERY l NIGHT ezetimibe 2021-10 Yes [id number] TAKE ONE [facility] (ZETIA) 10 0-[address] mg tablet 00:00: MOUTH [facility]ospita 00 DAILY l traZODone 2021-10 Yes TAKE ONE Meth fabiola (DESYREL) 0-[address] 100 MG 00:00: MOUTH [facility]ospita tablet 00 EVERY l NIGHT ezetimibe 2021-10 Yes [id number] TAKE ONE [facility] (ZETIA) 10 0-[address] mg tablet 00:00: MOUTH [facility]ospita 00 DAILY l traZODone 2021-10 Yes TAKE ONE Meth fabiola (DESYREL) 0-[address] 100 MG 00:00: MOUTH [facility]ospita tablet 00 EVERY l NIGHT ezetimibe 2021-10 Yes [id number] TAKE ONE [facility] (ZETIA) 10 0-[address] mg tablet 00:00: MOUTH [facility]ospita 00 DAILY l traZODone 2021-10 Yes TAKE ONE Meth fabiola (DESYREL) 0-[address] 100 MG 00:00: MOUTH [facility]osp[facility] tablet 00 EVERY l NIGHT Metoprolol 2021-10 Yes 25mg Take 25 mg K elsey Succinate 0-26 by mouth Seybol d 25 MG oral 00:00: daily - TABLET SR 00 Externa 24 HR l Metoprolol 2021-10 Yes 25mg Take 25 mg K elsey Succinate 0-26 by mouth Seybol d 25 MG oral 00:00: daily - TABLET SR 00 Externa 24 HR l traZODone 2021- No 100mg QD Take 100 Me [facility]odi (DESYREL) 9-21 09-[address] 100 MG 15:39: 00:00 mouth Hospita tablet 10 :00 nightly. l traZODone 2021- No 100mg QD Take 100 [facility] (DESYREL) 9- 09-[address] 100 MG 15:39: 00:00 mouth Hospita tablet 10 :00 nightly. l traZODone 2021- No 100mg QD Take 100 [facility] (DESYREL) 9-21 09-[address] 100 MG 15:39: 00:00 mouth Hospita tablet 10 :00 nightly. l traZODone 2021- No 100mg QD Take 100 [facility] (DESYREL) 9-21 09-[address] 100 MG 15:39: 00:00 mouth Hospita tablet 10 :00 nightly. l traZODone 2021-2021- No 100mg QD Take 100 [facility] (DESYREL) 9-21 09-[address] 100 MG 15:39: 00:00 mouth Hospita tablet 10 :00 nightly. l traZODone 2021- No 100mg QD Take 100 [facility] (DESYREL) 9-21 09-[address] 100 MG 15:39: 00:00 mouth Hospita tablet 10 :00 nightly. l Trazodone 2021-0 Yes 100mg Take 100 Minh sey HCl 100 MG 9-21 mg by Seybold oral Tablet 00:00: mouth - 00 nightly Externa l Trazodone 2021-0 Yes 100mg Take 100 Minh sey HCl 100 MG 9-21 mg by Seybold oral Tablet 00:00: mouth - 00 nightly Externa l traZODone 2021- No 100mg QD Take 1 Meth fabiola (DESYREL) 07-[address] 100 MG 00:00: 00:00 (100 mg Hospita tablet 00 :00 total) by l mouth nightly. traZODone 2021- No 100mg QD Take 1 Meth fabiola (DESYREL) 07-[address] 100 MG 00:00: 00:00 (100 mg Hospita tablet 00 :00 total) by l mouth nightly. traZODone 2021- No 100mg QD Take 1 Meth fabiola (DESYREL) 07-[address] 100 MG 00:00: 00:00 (100 mg Hospita tablet 00 :00 total) by l mouth nightly. traZODone 2021- No 100mg QD Take 1 Meth fabiola (DESYREL) 07-[address] 100 MG 00:00: 00:00 (100 mg Hospita tablet 00 :00 total) by l mouth nightly. traZODone 2021- No 100mg QD Take 1 Meth fabiola (DESYREL) 07-[address] 100 MG 00:00: 00:00 (100 mg Hospita tablet 00 :00 total) by l mouth nightly. traZODone 2021- No 100mg QD Take 1 Meth fabiola (DESYREL) 07-14- tablet st 100 MG 00:00: 00:00 (100 mg Hospita tablet 00 :00 total) by l mouth nightly. melatonin 2021- No Take by Meth fabiola 10 mg 9-[address] capsule 11:06: 00:00 Hospita 26 :00 l melatonin 2021- No Take by Meth fabiola 10 mg 9-20 - mouth. st capsule 11:06: 00:00 Hospita 26 :00 l melatonin 2021-0 2- No Take by Meth fabiola 10 mg 9-20 - mouth. st capsule 11:06: 00:00 Hospita 26 :00 l melatonin 2021-0 2021- No Take by Meth fabiola 10 mg 9-20 -[address] capsule 11:06: 00:00 Hospita 26 :00 l melatonin 2021-0 2021- No Take by Meth fabiola 10 mg 9-20 - mouth. st capsule 11:06: 00:00 Hospita 26 :00 l melatonin 2021-0 2021- No Take by Meth fabiola 10 mg 9-20 - mouth. st capsule 11:06: 00:00 Hospita 26 :00 l glucosamine 2021-0 Yes Take by Met hodi -D3-hyaluro 9-[address] kavitha acid 10:56: Hospita 1,000 mg- 46 l 25 mcg-1.65 mg tablet glucosamine 0 Yes Take by Met hodi -D3-hyaluro 9-[address] kavitha acid 10:56: Hospita 1,000 mg- 46 l 25 mcg-1.65 mg tablet glucosamine 0 Yes Take by Met hodi -D3-hyaluro 9-[address] kavitha acid 10:56: Hospita 1,000 mg- 46 l 25 mcg-1.65 mg tablet glucosamine 2021-0 Yes Take by Met hodi -D3-hyaluro 9-[address] kavitha acid 10:56: Hospita 1,000 mg- 46 l 25 mcg-1.65 mg tablet glucosamine 0 Yes Take by Met [facility]odi -D3-hyaluro 9-[address] kavitha acid 10:56: Hospita 1,000 mg- 46 l 25 mcg-1.65 mg tablet glucosamine 2021-0 Yes Take by Met hodi -D3-hyaluro 9-[address] kavitha acid 10:56: Hospita 1,000 mg- 46 l 25 mcg-1.65 mg tablet metoprolol 2-0 2023- No [id number] 25mg QD Take 1 [facility] succinate -07-14 tablet (25 st XL 00:00: 04:59 mg total) Hospita (TOPROL-XL) 00 :00 by mouth l 25 mg 24 hr daily. tablet metoprolol 2022- No [id number] 25mg QD Take 1 [facility] succinate 07-13 tablet (25 st XL 00:00: 04:59 mg total) Hospita (TOPROL-XL) 00 :00 by mouth l 25 mg 24 hr daily. tablet metoprolol 2022- No [id number] 25mg QD Take 1 [facility] succinate 07-13 tablet (25 st XL 00:00: 04:59 mg total) Hospita (TOPROL-XL) 00 :00 by mouth l 25 mg 24 hr daily. tablet metoprolol 2022- No [id number] 25mg QD Take 1 [facility] succinate 07-13 tablet (25 st XL 00:00: 04:59 mg total) Hospita (TOPROL-XL) 00 :00 by mouth l 25 mg 24 hr daily. tablet metoprolol 2022- No [id number] 25mg QD Take 1 [facility] succinate 07-13 tablet (25 st XL 00:00: 04:59 mg total) Hospita (TOPROL-XL) 00 :00 by mouth l 25 mg 24 hr daily. tablet metoprolol 2022- No [id number] 25mg QD Take 1 [facility] succinate 07-13 tablet (25 st XL 00:00: 04:59 mg total) Hospita (TOPROL-XL) 00 :00 by mouth l 25 mg 24 hr daily. tablet ezetimibe 2021- No [id number] 10mg QD Take 1 [facility] (ZETIA) 10 9-20 10-26 tablet (10 st mg tablet 00:00: 00:00 mg total) Ho spita 00 :00 by mouth l daily. ezetimibe 2021- No [id number] 10mg QD Take 1 [facility] (ZETIA) 10 9-20 10-26 tablet (10 st mg tablet 00:00: 00:00 mg total) Ho spita 00 :00 by mouth l daily. ezetimibe 2021- No [id number] 10mg QD Take 1 [facility] (ZETIA) 10 9-20 10-26 tablet (10 st mg tablet 00:00: 00:00 mg total) Ho spita 00 :00 by mouth l daily. ezetimibe 2021- No [id number] 10mg QD Take 1 [facility] (ZETIA) 10 9-20 10-26 tablet (10 st mg tablet 00:00: 00:00 mg total) Ho spita 00 :00 by mouth l daily. ezetimibe 2021- No [id number] 10mg QD Take 1 [facility] (ZETIA) 10 9-20 10-26 tablet (10 st mg tablet 00:00: 00:00 mg total) Ho spita 00 :00 by mouth l daily. ezetimibe 2021- No [id number] 10mg QD Take 1 [facility] (ZETIA) 10 9-20 -26 tablet (10 st mg tablet 00:00: 00:00 mg total) Ho spita 00 :00 by mouth l daily. ezetimibe 2021- No [id number] 10mg QD Take 1 [facility] (ZETIA) 10 9-20 -20 tablet (10 st mg tablet 00:00: 00:00 mg total) Ho spita 00 :00 by mouth l daily. ezetimibe 2021- No [id number] 10mg QD Take 1 [facility] (ZETIA) 10 9-20 -20 tablet (10 st mg tablet 00:00: 00:00 mg total) Ho spita 00 :00 by mouth l daily. ezetimibe 2021- No [id number] 10mg QD Take 1 [facility] (ZETIA) 10 9-20 -20 tablet (10 st mg tablet 00:00: 00:00 mg total) Ho spita 00 :00 by mouth l daily. ezetimibe 2021- No [id number] 10mg QD Take 1 [facility] (ZETIA) 10 9-20 09-20 tablet (10 st mg tablet 00:00: 00:00 mg total) Ho spita 00 :00 by mouth l daily. ezetimibe 2021- No [id number] 10mg QD Take 1 [facility] (ZETIA) 10 9-20 09-20 tablet (10 st mg tablet 00:00: 00:00 mg total) Ho spita 00 :00 by mouth l daily. ezetimibe 2021- No [id number] 10mg QD Take 1 [facility] (ZETIA) 10 9-20 09-20 tablet (10 st mg tablet 00:00: 00:00 mg total) Ho spita 00 :00 by mouth l daily. sertraline 2021-0 Yes [id number] TAKE ONE [facility] (ZOLOFT) 9-[address] 100 MG 00:00: MOUTH [facility]ospita tablet 00 DAILY l sertraline 2021-0 Yes [id number] TAKE ONE [facility] (ZOLOFT) 9-[address] 100 MG 00:00: MOUTH [facility]osp[facility] tablet 00 DAILY l sertraline 2021-0 Yes [id number] TAKE ONE [facility] (ZOLOFT) 9-[address] 100 MG 00:00: MOUTH [facility]osp[facility] tablet 00 DAILY l sertraline 2021-0 Yes [id number] TAKE ONE [facility] (ZOLOFT) 9-[address] 100 MG 00:00: MOUTH [facility]ospita tablet 00 DAILY l sertraline 2021-0 Yes [id number] TAKE ONE [facility] (ZOLOFT) 9-[address] 100 MG 00:00: MOUTH [facility]ospita tablet 00 DAILY l sertraline 2021-0 3- No [id number] TAKE ONE [facility] (ZOLOFT) 9-06 02-[address] 100 MG 00:00: 00:00 MOUTH [facility]ospita tablet 00 :00 DAILY l metoprolol 2021-0 2021- No 25mg Q.5D Take 25 mg [facility] tartrate 06-02- by mouth 2 st (LOPRESSOR) 15:13: 00:00 (two) Hosp suhail 25 mg 56 :00 times a l tablet day. metoprolol 2021-0 2021- No Take by Met hodi strickland-hydrochl 8- mouth. st orothiaz 15:13: 00:00 Hospita 25-12.5 mg 56 :00 l tablet extended release 24 hr metoprolol 2021-0 2021- No 25mg Q.5D Take 25 mg [facility] tartrate 06-02-[address] (LOPRESSOR) 15:13: 00:00 (two) Hosp suhail 25 mg 56 :00 times a l tablet day. metoprolol 2021-2021- No Take by Met hodi strickland-hydrochl 8-10 08-[address] orothiaz 15:13: 00:00 Hospita 25-12.5 mg 56 :00 l tablet extended release 24 hr metoprolol 2021-2021- No 25mg Q.5D Take 25 mg [facility] tartrate 8-10 08-[address] (LOPRESSOR) 15:13: 00:00 (two) Hosp suhail 25 mg 56 :00 times a l tablet day. metoprolol 2021-2021- No Take by Met hodi strickland-hydrochl 8-10 08-[address] orothiaz 15:13: 00:00 Hospita 25-12.5 mg 56 :00 l tablet extended release 24 hr metoprolol 2021-2021- No 25mg Q.5D Take 25 mg [facility] tartrate 8-10 08-[address] (LOPRESSOR) 15:13: 00:00 (two) Hosp suhail 25 mg 56 :00 times a l tablet day. metoprolol 2021- No Take by Met hodi strickland-hydrochl 8-10 08-[address] orothiaz 15:13: 00:00 Hospita 25-12.5 mg 56 :00 l tablet extended release 24 hr metoprolol 2021-2021- No 25mg Q.5D Take 25 mg [facility] tartrate 8-10 08-[address] (LOPRESSOR) 15:13: 00:00 (two) Hosp suhail 25 mg 56 :00 times a l tablet day. metoprolol 2021- No Take by hodi strickland-hydrochl 8-10 08-[address] orothiaz 15:13: 00:00 Hospita 25-12.5 mg 56 :00 l tablet extended release 24 hr metoprolol 2021-2021- No 25mg Q.5D Take 25 mg [facility] tartrate 8-10 08-[address] (LOPRESSOR) 15:13: 00:00 (two) Hosp suhail 25 mg 56 :00 times a l tablet day. metoprolol 2021- No Take by Met hodi strickland-hydrochl 8-10 08-[address] orothiaz 15:13: 00:00 Hospita 25-12.5 mg 56 :00 l tablet extended release 24 hr metoprolol 2021- No [id number] 25mg QD Take 1 [facility] succinate 06-02 tablet (25 st XL 00:00: 00:00 mg total) Hospita (TOPROL-XL) 00 :00 by mouth l 25 mg 24 hr daily. tablet metoprolol 2021- No [id number] 25mg QD Take 1 [facility] succinate 06-02 tablet (25 st XL 00:00: 00:00 mg total) Hospita (TOPROL-XL) 00 :00 by mouth l 25 mg 24 hr daily. tablet metoprolol 2021- No [id number] 25mg QD Take 1 [facility] succinate 06-02 tablet (25 st XL 00:00: 00:00 mg total) [facility]ospita (TOPROL-XL) 00 :00 by mouth l 25 mg 24 hr daily. tablet metoprolol 2021- No [id number] 25mg QD Take 1 [facility] succinate 06-02 tablet (25 st XL 00:00: 00:00 mg total) Hospita (TOPROL-XL) 00 :00 by mouth l 25 mg 24 hr daily. tablet metoprolol 2021- No [id number] 25mg QD Take 1 [facility] succinate 06-02 tablet (25 st XL 00:00: 00:00 mg total) Hospita (TOPROL-XL) 00 :00 by mouth l 25 mg 24 hr daily. tablet metoprolol 2021- No [id number] 25mg QD Take 1 [facility] succinate 06-02 tablet (25 st XL 00:00: 00:00 mg total) Hospita (TOPROL-XL) 00 :00 by mouth l 25 mg 24 hr daily. tablet keTOROlac 2021-2021- No 10mg Q6H Take 1 Metho di (TORadol) 05-26 tablet (10 st 10 mg 00:00: 04:59 mg total) Hospit a tablet 00 :00 by mouth l every 6 (six) hours as needed for moderate pain for up to 5 days. keTOROlac 2021- No 10mg Q6H Take 1 [facility] di (TORadol) 05-26 tablet (10 st 10 mg 00:00: 04:59 mg total) Hospit a tablet 00 :00 by mouth l every 6 (six) hours as needed for moderate pain for up to 5 days. keTOROlac 2021-0 2022- No 10mg Q6H Take 1 [facility] di (TORadol) 05-26 tablet (10 st 10 mg 00:00: 04:59 mg total) Hospit a tablet 00 :00 by mouth l every 6 (six) hours as needed for moderate pain for up to 5 days. keTOROlac 2021-0 2022- No 10mg Q6H Take 1 [facility] di (TORadol) 05-26 tablet (10 st 10 mg 00:00: 04:59 mg total) Hospit a tablet 00 :00 by mouth l every 6 (six) hours as needed for moderate pain for up to 5 days. keTOROlac 2021-0 2021- No 10mg Q6H Take 1 [facility] di (TORadol) 05-26 tablet (10 st 10 mg 00:00: 04:59 mg total) Hospit a tablet 00 :00 by mouth l every 6 (six) hours as needed for moderate pain for up to 5 days. keTOROlac 2021-0 2021- No 10mg Q6H Take 1 [facility] di (TORadol) 05-26 tablet (10 st 10 mg 00:00: 04:59 mg total) Hospit a tablet 00 :00 by mouth l every 6 (six) hours as needed for moderate pain for up to 5 days. albuterol 2021- No [id number] 2{puff} Q8H Inhale 2 [facility] (Ventolin 7-29 09-[address] HFA) 90 00:00: 00:00 every 8 Hospit a mcg/actuati 00 :00 (eight) l on inhaler hours as needed for wheezing. albuterol 2021- No [id number] 2{puff} Q8H Inhale 2 [facility] (Ventolin 7-29 09-[address] HFA) 90 00:00: 00:00 every 8 Hospit a mcg/actuati 00 :00 (eight) l on inhaler hours as needed for wheezing. albuterol 2021- No [id number] 2{puff} Q8H Inhale 2 [facility] (Ventolin 7-29 09-[address] HFA) 90 00:00: 00:00 every 8 Hospit a mcg/actuati 00 :00 (eight) l on inhaler hours as needed for wheezing. albuterol 2021- No [id number] 2{puff} Q8H Inhale 2 [facility] (Ventolin 7-29 09-[address] HFA) 90 00:00: 00:00 every 8 Hospit a mcg/actuati 00 :00 (eight) l on inhaler hours as needed for wheezing. albuterol 2021- No [id number] 2{puff} Q8H Inhale 2 [facility] (Ventolin 7-29 09-[address] HFA) 90 00:00: 00:00 every 8 Hospit a mcg/actuati 00 :00 (eight) l on inhaler hours as needed for wheezing. albuterol 2021- No [id number] 2{puff} Q8H Inhale 2 [facility] (Ventolin 7-29 09-[address] HFA) 90 00:00: 00:00 every 8 Hospit a mcg/actuati 00 :00 (eight) l on inhaler hours as needed for wheezing. azithromyci No [id number] Take 2 [facility] n 05-[address] (Zithromax 00:00: 04:59 (500 mg Hos alicia Z-Richard) 250 00 :00 total) by l MG tablet mouth daily for 1 day, THEN 1 tablet (250 mg total) daily for 4 days. azithromyci No [id number] Take 2 [facility] n 05-[address] (Zithromax 00:00: 04:59 (500 mg Hos alicia Z-Richard) 250 00 :00 total) by l MG tablet mouth daily for 1 day, THEN 1 tablet (250 mg total) daily for 4 days. azithromyci No [id number] Take 2 [facility] n 05-[address] (Zithromax 00:00: 04:59 (500 mg Hos alicia Z-Richard) 250 00 :00 total) by l MG tablet mouth daily for 1 day, THEN 1 tablet (250 mg total) daily for 4 days. azithromyci No [id number] Take 2 [facility] n 05-[address] (Zithromax 00:00: 04:59 (500 mg Hos alicia Z-Richard) 250 00 :00 total) by l MG tablet mouth daily for 1 day, THEN 1 tablet (250 mg total) daily for 4 days. azithromyci No [id number] Take 2 [facility] n 05-[address] (Zithromax 00:00: 04:59 (500 mg Hos alicia Z-Richard) 250 00 :00 total) by l MG tablet mouth daily for 1 day, THEN 1 tablet (250 mg total) daily for 4 days. azithromyci No [id number] Take 2 [facility] n 05-[address] (Zithromax 00:00: 04:59 (500 mg Hos alicia Z-Richard) 250 00 :00 total) by l MG tablet mouth daily for 1 day, THEN 1 tablet (250 mg total) daily for 4 days. traZODone 2021- No TAKE ONE [facility] (DESYREL) 04-[address] 100 MG 00:00: 00:00 MOUTH [facility]ospita tablet 00 :00 EVERY l EVENING traZODone 2021- No TAKE ONE [facility] (DESYREL) 04-[address] 100 MG 00:00: 00:00 MOUTH [facility]ospita tablet 00 :00 EVERY l EVENING traZODone 2021- No TAKE ONE [facility] (DESYREL) 04-[address] 100 MG 00:00: 00:00 MOUTH [facility]ospita tablet 00 :00 EVERY l EVENING traZODone 2021- No TAKE ONE [facility] (DESYREL) 04-[address] 100 MG 00:00: 00:00 MOUTH [facility]ospita tablet 00 :00 EVERY l EVENING traZODone 2022-0 2022- No TAKE ONE [facility] (DESYREL) 04-[address] 100 MG 00:00: 00:00 MOUTH [facility]ospita tablet 00 :00 EVERY l EVENING traZODone 2021- No TAKE ONE [facility] (DESYREL) 04-[address] 100 MG 00:00: 00:00 MOUTH [facility]ospita tablet 00 :00 EVERY l EVENING amoxicillin 2021- No 500mg [id number] Take 500 [facility] (AMOXIL) 04-[id number] 500 MG 10:30: 00:00 3D mouth 3 Hospita capsule 59 :00 (three) l times a day. amoxicillin 2021- No 500mg [id number] Take 500 [facility] (AMOXIL) 04-[id number] 500 MG 10:30: 00:00 3D mouth 3 Hospita capsule 59 :00 (three) l times a day. amoxicillin 2021- No 500mg Q.[id number] Take 500 [facility] (AMOXIL) 04-[id number] 500 MG 10:30: 00:00 3D mouth 3 Hospita capsule 59 :00 (three) l times a day. amoxicillin 2021- No 500mg Q.[id number] Take 500 [facility] (AMOXIL) 04-[id number] 500 MG 10:30: 00:00 3D mouth 3 Hospita capsule 59 :00 (three) l times a day. amoxicillin 2021- No 500mg [id number] Take 500 [facility] (AMOXIL) 04-[id number] 500 MG 10:30: 00:00 3D mouth 3 Hospita capsule 59 :00 (three) l times a day. amoxicillin 2021- No 500mg [id number] Take 500 [facility] (AMOXIL) 04-[id number] 500 MG 10:30: 00:00 3D mouth 3 Hospita capsule 59 :00 (three) l times a day. albuterol 2021- No 2{puff} Q4H Inhale 2 [facility] (PROAIR 6-21 07-[address] HFA) 90 00:00: 04:59 every 4 Hospit a mcg/actuati 00 :00 (four) l on inhaler hours as needed for shortness of breath for up to 30 days. albuterol 2021- No 2{puff} Q4H Inhale 2 [facility] (PROAIR 6-21 07-[address] HFA) 90 00:00: 04:59 every 4 Hospit a mcg/actuati 00 :00 (four) l on inhaler hours as needed for shortness of breath for up to 30 days. albuterol 2021- No 2{puff} Q4H Inhale 2 [facility] (PROAIR 6-21 07-[address] HFA) 90 00:00: 04:59 every 4 Hospit a mcg/actuati 00 :00 (four) l on inhaler hours as needed for shortness of breath for up to 30 days. albuterol 2021- No 2{puff} Q4H Inhale 2 [facility] (PROAIR 6-21 07-[address] HFA) 90 00:00: 04:59 every 4 Hospit a mcg/actuati 00 :00 (four) l on inhaler hours as needed for shortness of breath for up to 30 days. albuterol 2021- No 2{puff} Q4H Inhale 2 [facility] (PROAIR 6-21 07-[address] HFA) 90 00:00: 04:59 every 4 Hospit a mcg/actuati 00 :00 (four) l on inhaler hours as needed for shortness of breath for up to 30 days. albuterol 2021- No 2{puff} Q4H Inhale 2 [facility] (PROAIR 6-21 07-[address] HFA) 90 00:00: 04:59 every 4 Hospit a mcg/actuati 00 :00 (four) l on inhaler hours as needed for shortness of breath for up to 30 days. traZODone 2021- No TAKE ONE [facility] ([facility]) 3- 06-[address] 100 MG 00:00: 00:00 [facility] tablet 00 :00 EVERY l EVENING traZODone 2021-0 2021- No TAKE ONE [facility] ([facility]) 01-[address] 100 MG 00:00: 00:00 [facility] tablet 00 :00 EVERY l EVENING traZODone 2021-2021- No TAKE ONE [facility] ([facility]) 01-[address] 100 MG 00:00: 00:00 [facility] tablet 00 :00 EVERY l EVENING traZODone 2021-2021- No TAKE ONE [facility] ([facility]YREL) 01-[address] 100 MG 00:00: 00:00 [facility] tablet 00 :00 EVERY l EVENING traZODone 2021-2021- No TAKE ONE [facility] (DESYREL) 01-[address] 100 MG 00:00: 00:00 [facility] tablet 00 :00 EVERY l EVENING traZODone 2021-2021- No TAKE ONE [facility] (DESYREL) 01-[address] 100 MG 00:00: 00:00 [facility] tablet 00 :00 EVERY l EVENING bempedoic 2021-2021- No 180mg QD Take 180 [facility] acid 3-17 03-[address] (Nexletol) 11:25: 00:00 mouth [facility] 180 mg 47 :00 every l tablet evening. bempedoic 2021- No 180mg QD Take 180 [facility] acid 3-17 03-[address] (Nexletol) 11:25: 00:00 mouth [facility] 180 mg 47 :00 every l tablet evening. bempedoic 2021- No 180mg QD Take 180 Me thodi acid 3-17 03-[address] (Nexletol) 11:25: 00:00 mouth [facility] 180 mg 47 :00 every l tablet evening. bempedoic 2021-2021- No 180mg QD Take 180 [facility] acid 3-17 03-[address] (Nexletol) 11:25: 00:00 mouth [facility] 180 mg 47 :00 every l tablet evening. bempedoic 2021- No 180mg QD Take 180 [facility] acid 3-17 03-[address] (Nexletol) 11:25: 00:00 mouth [facility] 180 mg 47 :00 every l tablet evening. ezetimibe-r 2022-0 2022- No Meth[facility] di osuvastatin 3-17 -20 st 10-10 mg 00:00: 00:00 [facility]osp[facility] tablet 00 :00 l ezetimibe-r 2022-0 2022- No Metho di osuvastatin 3-17 -20 st 10-10 mg 00:00: 00:00 [facility]osp[facility] tablet 00 :00 l ezetimibe-r 2022-0 2022- No Metho di osuvastatin 3-17 -20 st 10-10 mg 00:00: 00:00 [facility]ospita tablet 00 :00 l ezetimibe-r 2022-0 2022- No Metho di osuvastatin 3-17 -20 st 10-10 mg 00:00: 00:00 [facility]ospita tablet 00 :00 l ezetimibe-r 2022-0 2022- No Metho di osuvastatin 3-17 -20 st 10-10 mg 00:00: 00:00 [facility]ospita tablet 00 :00 l ezetimibe-r 2022-0 2022- No Metho di osuvastatin 3-17 -20 st 10-10 mg 00:00: 00:00 [facility]ospita tablet 00 :00 l ezetimibe 2-0 2- No [id number] 10mg QD Take 1 [facility] (ZETIA) 10 01-07- tablet (10 st mg tablet 00:00: 00:00 mg total) [facility] 00 :00 by mouth l daily. ezetimibe 2021-0 2- No [id number] 10mg QD Take 1 [facility] (ZETIA) 10 01-07-04 tablet (10 st mg tablet 00:00: 00:00 mg total) [facility] 00 :00 by mouth l daily. ezetimibe 2-0 2- No [id number] 10mg QD Take 1 [facility] (ZETIA) 10 01-07-04 tablet (10 st mg tablet 00:00: 00:00 mg total) [facility] 00 :00 by mouth l daily. ezetimibe 22021- No [id number] 10mg QD Take 1 [facility] (ZETIA) 10 3-17 08-04 tablet (10 st mg tablet 00:00: 00:00 mg total) [facility] 00 :00 by mouth l daily. ezetimibe 2021- No [id number] 10mg QD Take 1 [facility] (ZETIA) 10 3-17 08-04 tablet (10 st mg tablet 00:00: 00:00 mg total) [facility] 00 :00 by mouth l daily. ezetimibe 2021- No [id number] 10mg QD Take 1 [facility] (ZETIA) 10 -17 08-04 tablet (10 st mg tablet 00:00: 00:00 mg total) [facility] 00 :00 by mouth l daily. albuterol 2021- No [id number] 2{puff} Q8H Inhale 2 [facility] (Ventolin 1-24 07-[address] HFA) 90 00:00: 00:00 every 8 Hospit a mcg/actuati 00 :00 (eight) l on inhaler hours as needed for wheezing. albuterol 2021- No [id number] 2{puff} Q8H Inhale 2 [facility] (Ventolin 1-24 07-[address] HFA) 90 00:00: 00:00 every 8 Hospit a mcg/actuati 00 :00 (eight) l on inhaler hours as needed for wheezing. albuterol 2021- No [id number] 2{puff} Q8H Inhale 2 [facility] (Ventolin 1-24 07-[address] HFA) 90 00:00: 00:00 every 8 Hospit a mcg/actuati 00 :00 (eight) l on inhaler hours as needed for wheezing. albuterol 2021- No [id number] 2{puff} Q8H Inhale 2 [facility] (Ventolin 1-24 07-[address] HFA) 90 00:00: 00:00 every 8 Hospit a mcg/actuati 00 :00 (eight) l on inhaler hours as needed for wheezing. albuterol 2021- No [id number] 2{puff} Q8H Inhale 2 [facility] (Ventolin 1-24 07-[address] HFA) 90 00:00: 00:00 every 8 Hospit a mcg/actuati 00 :00 (eight) l on inhaler hours as needed for wheezing. albuterol 2021- No [id number] 2{puff} Q8H Inhale 2 [facility] (Ventolin 1-24 07-[address] HFA) 90 00:00: 00:00 every 8 Hospit a mcg/actuati 00 :00 (eight) l on inhaler hours as needed for wheezing. albuterol 2021- No [id number] 2{puff} Q8H Inhale 2 [facility] (Ventolin 1-21 01-[address] HFA) 90 00:00: 00:00 every 8 Hospit a mcg/actuati 00 :00 (eight) l on inhaler hours as needed for wheezing. albuterol 2021- No [id number] 2{puff} Q8H Inhale 2 [facility] (Ventolin 1-21 01-[address] HFA) 90 00:00: 00:00 every 8 Hospit a mcg/actuati 00 :00 (eight) l on inhaler hours as needed for wheezing. albuterol 2021- No [id number] 2{puff} Q8H Inhale 2 [facility] (Ventolin 1-21 01-[address] HFA) 90 00:00: 00:00 every 8 Hospit a mcg/actuati 00 :00 (eight) l on inhaler hours as needed for wheezing. albuterol 2021- No [id number] 2{puff} Q8H Inhale 2 [facility] (Ventolin 1-21 01-[address] HFA) 90 00:00: 00:00 every 8 Hospit a mcg/actuati 00 :00 (eight) l on inhaler hours as needed for wheezing. albuterol 2021- No [id number] 2{puff} Q8H Inhale 2 [facility] (Ventolin 1-21 01-[address] HFA) 90 00:00: 00:00 every 8 Hospit a mcg/actuati 00 :00 (eight) l on inhaler hours as needed for wheezing. metoprolol 2021- No [id number] 25mg QD Take 1 [facility] succinate -10 02-21 tablet (25 st XL 00:00: 04:59 mg total) Hospita (TOPROL-XL) 00 :00 by mouth l 25 mg 24 hr daily for tablet 90 days. metoprolol 2021-2021- No [id number] 25mg QD Take 1 [facility] succinate -10 02-21 tablet (25 st XL 00:00: 04:59 mg total) [facility]osp[facility] (TOPROL-XL) 00 :00 by mouth l 25 mg 24 hr daily for tablet 90 days. metoprolol 2021-2021- No [id number] 25mg QD Take 1 [facility] succinate -10 02- tablet (25 st XL 00:00: 04:59 mg total) [facility]osp[facility] (TOPROL-XL) 00 :00 by mouth l 25 mg 24 hr daily for tablet 90 days. metoprolol 2021-2021- No [id number] 25mg QD Take 1 [facility] succinate 11-12- tablet (25 st XL 00:00: 04:59 mg total) [facility]osp[facility] (TOPROL-XL) 00 :00 by mouth l 25 mg 24 hr daily for tablet 90 days. metoprolol 2021- No [id number] 25mg QD Take 1 [facility] succinate 11-12- tablet (25 st XL 00:00: 04:59 mg total) [facility]osp[facility] (TOPROL-XL) 00 :00 by mouth l 25 mg 24 hr daily for tablet 90 days. sodium,pota 2021- No Drink 1 Me thodi ssium,mag 11-[address] sulfates 00:00: 00:00 directed [facility]osp [facility] (Suprep 00 :00 for dose 1 l Bowel Prep and 1 Kit) bottle as 17.5-3.13-1 directed .6 gram for dose recon soln 2. sodium,pota 2021- No Drink 1 Me thodi ssium,mag 11-[address] sulfates 00:00: 00:00 directed [facility] (Suprep 00 :00 for dose 1 l Bowel Prep and 1 Kit) bottle as 17.5-3.13-1 directed .6 gram for dose recon soln 2. sodium,pota 2021- No Drink 1 Me thodi ssium,mag 11-[address] sulfates 00:00: 00:00 directed [facility] (Suprep 00 :00 for dose 1 l Bowel Prep and 1 Kit) bottle as 17.5-3.13-1 directed .6 gram for dose recon soln 2. sodium,pota 2021- No Drink 1 Me thodi ssium,mag 11-[address] sulfates 00:00: 00:00 directed [facility] (Suprep 00 :00 for dose 1 l Bowel Prep and 1 Kit) bottle as 17.5-3.13-1 directed .6 gram for dose recon soln 2. sodium,pota 2021- No Drink 1 Me thodi ssium,mag 11-[address] sulfates 00:00: 00:00 directed [facility] (Suprep 00 :00 for dose 1 l Bowel Prep and 1 Kit) bottle as 17.5-3.13-1 directed .6 gram for dose recon soln 2. memantine 2021-2021- No 10mg QD Take 10 mg [facility] (NAMENDA) 11-[address] 10 MG 11:25: 00:00 daily. Hospita tablet 18 :00 l memantine 2021- No 10mg QD Take 10 mg [facility] (NAMENDA) 11-[address] 10 MG 11:25: 00:00 daily. [facility]ospita tablet 18 :00 l memantine 2021- No 10mg QD Take 10 mg [facility] (NAMENDA) 11-[address] 10 MG 11:25: 00:00 daily. [facility]ospita tablet 18 :00 l memantine 2021-2021- No 10mg QD Take 10 mg [facility] (NAMENDA) 11-[address] 10 MG 11:25: 00:00 daily. [facility]ospita tablet 18 :00 l memantine 2021-2021- No 10mg QD Take 10 mg [facility] (NAMENDA) 11-[address] 10 MG 11:25: 00:00 daily. [facility]ospita tablet 18 :00 l sertraline 2021- No [id number] 100mg QD Take 1 [facility] (ZOLOFT) 11-[address] 100 MG 00:00: 00:00 (100 mg Hospita tablet 00 :00 total) by l mouth daily. sertraline 2021- No [id number] 100mg QD Take 1 [facility] ([facility]OLOFT) 11-[address] 100 MG 00:00: 00:00 (100 mg Hospita tablet 00 :00 total) by l mouth daily. sertraline 2021- No [id number] 100mg QD Take 1 [facility] ([facility]OFT) 11-[address] 100 MG 00:00: 00:00 (100 mg Hospita tablet 00 :00 total) by l mouth daily. sertraline No [id number] 100mg QD Take 1 [facility] ([facility]OFT) 11-[address] 100 MG 00:00: 00:00 (100 mg Hospita tablet 00 :00 total) by l mouth daily. sertraline No [id number] 100mg QD Take 1 [facility] ([facility]OFT) 11-[address] 100 MG 00:00: 00:00 (100 mg Hospita tablet 00 :00 total) by l mouth daily. sertraline No [id number] 100mg QD Take 1 [facility] ([facility]OFT) 11-[address] 100 MG 00:00: 00:00 (100 mg Hospita tablet 00 :00 total) by l mouth daily. sertraline No [id number] 100mg QD Take 1 [facility] ([facility]) 11-[address] 100 MG 00:00: 00:00 (100 mg Hospita tablet 00 :00 total) by l mouth daily. sertraline 2021- No [id number] 100mg QD Take 1 [facility] ([facility]) 11-[address] 100 MG 00:00: 00:00 (100 mg Hospita tablet 00 :00 total) by l mouth daily. sertraline 2021- No [id number] 100mg QD Take 1 [facility] ([facility]) 11-[address] 100 MG 00:00: 00:00 (100 mg Hospita tablet 00 :00 total) by l mouth daily. sertraline 2021- No [id number] 100mg QD Take 1 [facility] ([facility]) 11-[address] 100 MG 00:00: 00:00 (100 mg Hospita tablet 00 :00 total) by l mouth daily. sertraline 2021- No [id number] 100mg QD Take 1 [facility] ([facility]OFT) 11-[address] 100 MG 00:00: 00:00 (100 mg Hospita tablet 00 :00 total) by l mouth daily. sertraline 2021- No [id number] 100mg QD Take 1 [facility] ([facility]) 11-[address] 100 MG 00:00: 00:00 (100 mg Hospita tablet 00 :00 total) by l mouth daily. sertraline 2021- No [id number] 100mg QD Take 1 [facility] ([facility]) 11-[address] 100 MG 00:00: 00:00 (100 mg Hospita tablet 00 :00 total) by l mouth daily. sertraline 2021- No [id number] 100mg QD Take 1 [facility] ([facility]) 11-[address] 100 MG 00:00: 00:00 (100 mg Hospita tablet 00 :00 total) by l mouth daily. sertraline 2021- No [id number] 100mg QD Take 1 [facility] ([facility]) 11-[address] 100 MG 00:00: 00:00 (100 mg Hospita tablet 00 :00 total) by l mouth daily. sertraline 2021- No [id number] 100mg QD Take 1 [facility] ([facility]) 11-[address] 100 MG 00:00: 00:00 (100 mg Hospita tablet 00 :00 total) by l mouth daily. traZODone 2020-10- No [id number] 100mg QD Take 1 [facility] (DESYREL) 12-[address] 100 MG 00:00: 04:59 (100 mg Hospita tablet 00 :00 total) by l mouth nightly for 90 days. traZODone 2020-10- No [id number] 100mg QD Take 1 [facility] ([facility]YREL) 12-[address] 100 MG 00:00: 04:59 (100 mg Hospita tablet 00 :00 total) by l mouth nightly for 90 days. traZODone 2020-10- No [id number] 100mg QD Take 1 [facility] ([facility]YREL) 12-[address] 100 MG 00:00: 04:59 (100 mg Hospita tablet 00 :00 total) by l mouth nightly for 90 days. traZODone 2020-10- No [id number] 100mg QD Take 1 [facility] (DESYREL) 12-[address] 100 MG 00:00: 04:59 (100 mg Hospita tablet 00 :00 total) by l mouth nightly for 90 days. traZODone 2020-10- No [id number] 100mg QD Take 1 [facility] (DESYREL) 12-[address] 100 MG 00:00: 04:59 (100 mg Hospita tablet 00 :00 total) by l mouth nightly for 90 days. bempedoic 2020-10- No [id number] 1{tbl} QD Take 1 [facility] acid 180 mg 12-02-[address] tablet 00:00: 05:59 mouth [facility]ospita 00 :00 daily for l 90 days. bempedoic 2020-10- No [id number] 1{tbl} QD Take 1 [facility] acid 180 mg 12-02-[address] tablet 00:00: 05:59 mouth [facility]ospita 00 :00 daily for l 90 days. bempedoic 2020-10- No [id number] 1{tbl} QD Take 1 [facility] acid 180 mg 2-06 26-[address] tablet 00:00: 05:59 mouth [facility]ospita 00 :00 daily for l 90 days. bempedoic 2020-10- No [id number] 1{tbl} QD Take 1 [facility] acid 180 mg 2-[address] tablet 00:00: 05:59 mouth [facility]ospita 00 :00 daily for l 90 days. bempedoic 2020-10- No [id number] 1{tbl} QD Take 1 [facility] acid 180 mg 12-[address] tablet 00:00: 05:59 mouth [facility]ospita 00 :00 daily for l 90 days. sertraline 2020-10 No [id number] 75mg QD Take 1.5 [facility] ([facility]OFT) 50 11-[address] MG tablet 00:00: 00:00 (75 mg Hospi ta 00 :00 total) by l mouth daily. sertraline 2020-10 No [id number] 75mg QD Take 1.5 [facility] ([facility]OFT) 50 11-[address] MG tablet 00:00: 00:00 (75 mg Hospi ta 00 :00 total) by l mouth daily. sertraline 2020-10 No [id number] 75mg QD Take 1.5 [facility] ([facility]OFT) 50 11-[address] MG tablet 00:00: 00:00 (75 mg Hospi ta 00 :00 total) by l mouth daily. traZODone 2020-10- No [id number] 50mg QD Take 1 [facility] (DESYREL) 11-25 tablet (50 st 50 MG 00:00: 00:00 mg total) Hospit a tablet 00 :00 by mouth l nightly for 30 days. metoprolol 2020-10 No 25mg QD Take 1 [facility] succinate 11-01 tablet (25 st XL 00:00: 00:00 mg total) [facility]ospita (TOPROL-XL) 00 :00 by mouth l 25 mg 24 hr daily for tablet 90 days. metoprolol 2020-10 No 25mg QD Take 1 [facility] succinate 11-01 tablet (25 st XL 00:00: 00:00 mg total) [facility]ospita (TOPROL-XL) 00 :00 by mouth l 25 mg 24 hr daily for tablet 90 days. metoprolol 2020-10 No 25mg QD Take 1 [facility] succinate 11-0120 tablet (25 st XL 00:00: 00:00 mg total) [facility]ospita (TOPROL-XL) 00 :00 by mouth l 25 mg 24 hr daily for tablet 90 days. metoprolol 2020-10 No 25mg QD Take 1 [facility] succinate 11-01 tablet (25 st XL 00:00: 00:00 mg total) [facility]ospita (TOPROL-XL) 00 :00 by mouth l 25 mg 24 hr daily for tablet 90 days. metoprolol 2020-10 No 25mg QD Take 1 [facility] succinate 11-01 tablet (25 st XL 00:00: 00:00 mg total) Hospita (TOPROL-XL) 00 :00 by mouth l 25 mg 24 hr daily for tablet 90 days. Immunizations Ordered Immunization Filled Immunization Date Status Commen ts Source Name Name Covid-19 Vaccine 2022-06-23 Completed Kaela liu - (xiao qu wu you), Mrna-lnp, 00:00:00 Exter nal [place] [facility], Pf, 30mcg/0.3ml,IM PFIZER COVID-19 MRNA 2022-06-23 Completed [facility] VACCINATION 00:00:00 [facility] PFIZER COVID-19 MRNA 2022-06-23 Completed [facility] VACCINATION 00:00:00 [facility] PFIZER COVID-19 MRNA 2022-06-23 Completed [facility] VACCINATION 00:00:00 [facility] PFIZER COVID-19 MRNA 2022-06-23 Completed [facility] VACCINATION 00:00:00 [facility] PFIZER COVID-19 MRNA 2022-06-23 Completed [facility] VACCINATION 00:00:00 [facility] PFIZER COVID-19 MRNA 2022-06-23 Completed [facility] VACCINATION 00:00:00 [facility] Influenza Virus 2022-06-01 Completed Kaela arango - Vaccine, 00:00:00 External Quadrivalent, High Dose, Age 65 And Up FLUZONE HIGH-DOSE PF 2022-06-01 Completed [facility] 00:00:00 Hospital FLUZONE HIGH-DOSE PF 2022-06-01 Completed [facility] 00:00:00 Hospital FLUZONE HIGH-DOSE PF 2022-06-01 Completed [facility] 00:00:00 Hospital FLUZONE HIGH-DOSE PF 2022-06-01 Completed [facility] 00:00:00 Hospital FLUZONE HIGH-DOSE PF 2022-06-01 Completed [facility] 00:00:00 Hospital FLUZONE HIGH-DOSE PF 2022-06-01 Completed [facility] 00:00:00 Hospital Tdap- (Boostrix, 2022-02-05 Completed Kaela liu - Adatata) 00:00:00 External Tdap 2022-02-05 [facility]pleted [facility] Tdap 2022-02-05 [facility]pleted [facility] 00:[facility]:00 [facility] Tdap 2022-02-05 Completed [facility] 00:00:00 Hospital Tdap 2022-02-05 Completed [facility] 00:00:00 [facility] Tdap 2022-02-05 Completed [facility] 00:00:00 [facility] Tdap 2022-02-05 [facility]pleted [facility] 00:[facility] Influenza Virus 2021-07-27 Completed Kaela arango - Vaccine, 00:00:00 External Quadrivalent, High Dose, Age 65 And Up PFIZER COVID-19 MRNA 2021-07-27 Completed [facility] VACCINATION 00:00:00 [facility] FLUZONE HIGH-DOSE PF 2021-07-27 Completed [facility] 00:00:00 [facility] PFIZER COVID-19 MRNA 2021-07-27 Completed [facility] VACCINATION 00:00:00 [facility] FLUZONE HIGH-DOSE PF 2021-07-27 Completed [facility]ist 00:00:00 [facility] PFIZER COVID-19 MRNA 2021-07-27 Completed [facility] VACCINATION 00:00:00 [facility] FLUZONE HIGH-DOSE PF 2021-07-27 Completed [facility]ist 00:00:00 [facility] PFIZER COVID-19 MRNA 2021-07-27 Completed [facility] VACCINATION 00:00:00 [facility] FLUZONE HIGH-DOSE PF 2021-07-27 Completed [facility] odist 00:00:00 [facility] PFIZER COVID-19 MRNA 2021-07-27 Completed [facility] VACCINATION 00:00:00 [facility] FLUZONE HIGH-DOSE PF 2021-07-27 Completed [facility]ist 00:00:00 [facility] PFIZER COVID-19 MRNA 2021-07-27 Completed [facility] VACCINATION 00:00:00 [facility] FLUZONE HIGH-DOSE PF 2021-07-27 Completed [facility]ist 00:00:00 [facility] PFIZER COVID-19 MRNA 2021-01-05 Completed [facility] VACCINATION 00:00:00 [facility] PFIZER COVID-19 MRNA 2021-01-05 Completed [facility] VACCINATION 00:00:00 [facility] PFIZER COVID-19 MRNA 2021-01-05 Completed [facility] VACCINATION 00:00:00 Hospital PFIZER COVID-19 MRNA 2021-01-05 Completed [facility] VACCINATION 00:00:00 Hospital PFIZER COVID-19 MRNA 2021-01-05 Completed [facility] VACCINATION 00:00:00 [facility] PFIZER COVID-19 MRNA 2021-01-05 Completed [facility] VACCINATION 00:00:00 [facility] PFIZER COVID-19 MRNA 2020-12-11 Completed [facility] VACCINATION 00:00:00 [facility] PFIZER COVID-19 MRNA 2020-12-11 Completed [facility] VACCINATION 00:00:00 [facility] PFIZER COVID-19 MRNA 2020-12-11 Completed [facility] VACCINATION 00:00:00 [facility] PFIZER COVID-19 MRNA 2020-12-11 Completed [facility] VACCINATION 00:00:00 [facility] PFIZER COVID-19 MRNA 2020-12-11 Completed [facility] VACCINATION 00:00:00 [facility] PFIZER COVID-19 MRNA 2020-12-11 Completed [facility] VACCINATION 00:00:00 [facility] Pneumococcal 2020-10-07 Completed Kaela Barajas ld - Vaccine, Conjugate 00:00:00 [employer] al 13 Pneumococcal 2020-10-07 Completed [facility] Conjugate 13-Valent 00:00:00 Hospi iona Pneumococcal 2020-10-07 Completed [facility] Conjugate 13-Valent 00:00:00 Hospi [facility]a Pneumococcal 2020-10-07 Completed [facility] Conjugate 13-Valent 00:00:00 Hospi [facility]a Pneumococcal 2020-10-07 Completed [facility] Conjugate 13-Valent 00:00:00 Hospi iona Pneumococcal 2020-10-07 Completed [facility] Conjugate 13-Valent 00:00:00 [facility]pi [facility]a Pneumococcal 2020-10-07 Completed [facility] Conjugate 13-Valent 00:00:00 [facility]pi [facility]a Influenza, 2020-08-12 Completed Kaela Alexander - Injectable, Mdck, 00:00:00 Externa l Preservative Free, Quadrivalt FLUCELVAX QUAD PF 2020-08-[address] 00:00:00 [facility] FLUCELVAX QUAD PF 2020-08-[address] 00:00:00 [facility] FLUCELVAX QUAD PF 2020-08-[address] 00:[facility]:00 Hospital FLUCELVAX QUAD PF 2020-08-[address] 00:00:00 Hospital FLUCELVAX QUAD PF 2020-08-[address] 00:00:00 Hospital FLUCELVAX QUAD PF 2020-08-[address] 00:00:00 Hospital Influenza Virus 2020-07-07 Completed Kaela arango - Vaccine, 00:00:00 External Quadrivalent, High Dose, Age 65 And Up FLUZONE HIGH-DOSE PF 2020-07-07 Completed [facility] 00:00:00 Hospital FLUZONE HIGH-DOSE PF 2020-07-07 Completed [facility] 00:00:00 Hospital FLUZONE HIGH-DOSE PF 2020-07-07 Completed [facility] 00:00:00 Hospital FLUZONE HIGH-DOSE PF 2020-07-07 Completed [facility] 00:00:00 Hospital FLUZONE HIGH-DOSE PF 2020-07-07 Completed [facility] 00:00:00 Hospital FLUZONE HIGH-DOSE PF 2020-07-07 Completed [facility] 00:00:00 Hospital Influenza Virus 2019-07-18 Completed Kaela arango - Vaccine, Split, 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4 FLUZONE QUAD 2019-07-18 Completed [facility] 00:[facility]:00 [facility] FLUZONE QUAD 2019-07-18 Completed [facility] 00:00:00 [facility] FLUZONE QUAD 2019-07-18 Completed [facility] 00:00:00 Hospital FLUZONE QUAD 2019-07-18 Completed [facility] 00:00:00 Hospital FLUZONE QUAD 2019-07-18 Completed [facility] 00:00:00 Hospital FLUZONE QUAD 2019-07-18 Completed [facility] 00:00:00 [facility] Influenza Virus 2018-06-24 Completed Kaela arango - Vaccine, Split, 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4 FLUZONE QUAD 2018-06-24 Completed [facility] 00:00:00 [facility] FLUZONE QUAD 2018-06-24 Completed [facility] 00:00:00 Hospital FLUZONE QUAD 2018-06-24 Completed [facility] 00:00:00 Hospital FLUZONE QUAD 2018-06-24 Completed [facility] 00:00:00 Hospital FLUZONE QUAD 2018-06-24 Completed [facility] 00:00:00 Hospital FLUZONE QUAD 2018-06-24 Completed [facility] 00:00:00 [facility] Influenza Virus 2016-08-24 Completed Kaela arango - Vaccine, Unspecified 00:00:00 Exte rnal Formulation Influenza, 2016-08-24 Completed [facility] Unspecified 00:00:00 Hospital Influenza, 2016-08-24 Completed [facility] Unspecified 00:00:00 Hospital Influenza, 2016-08-24 Completed [facility] Unspecified 00:00:00 Hospital Influenza, 2016-08-24 Completed [facility] Unspecified 00:00:00 Hospital Influenza, 2016-08-24 Completed [facility] Unspecified 00:00:00 Hospital Influenza, 2016-08-24 Completed [facility] Unspecified 00:00:00 Hospital pneumococcal, 2015-08-24 Completed Kaela ribera - unspecified 00:00:00 External formulation Pneumococcal, 2015-08-24 Completed [facility] Unspecified 00:00:00 Hospital Pneumococcal, 2015-08-24 Completed [facility] Unspecified 00:00:00 Hospital Pneumococcal, 2015-08-24 Completed [facility] Unspecified 00:00:00 Hospital Pneumococcal, 2015-08-24 Completed [facility] Unspecified 00:00:00 Hospital Pneumococcal, 2015-08-24 Completed [facility] Unspecified 00:00:00 Hospital Pneumococcal, 2015-08-24 Completed [facility] Unspecified 00:00:00 Hospital Vital Signs Vital Name Observation Time Observation Value Comments Source Systolic blood 2022-10-06 14:59:00 138 mm[Hg] Kaela Alexander - pressure External Diastolic blood 2022-10-06 14:59:00 67 mm[Hg] Ambreen arreaga Seybold - pressure External Heart rate 2022-10-06 14:59:00 59 /min Kaela liu - External Body temperature 2022-10-06 14:59:00 36.67 Tata Ara silva Seybold - External Respiratory rate 2022-10-06 14:59:00 14 /min Ara silva Seybbacilio - External Body height 2022-10-06 14:59:00 167.6 cm Kaela liu - External Body weight 2022-10-06 14:59:00 61.961 kg Kaela liu - External BMI 2022-10-06 14:59:00 22.05 kg/m2 Kaela liu - External Oxygen saturation in 2022-10-06 14:59:00 99 /min Kaela Alexander - Arterial blood by External Pulse oximetry Body temperature 2022-09-28 15:12:00 35.39 Tata Ara ey Seybold - External Respiratory rate 2022-09-28 15:12:00 14 /min Ara ey Seybold - External Body height 2022-09-28 15:12:00 167.6 cm Kaela Yoo eybold - External Body weight 2022-09-28 15:12:00 64.411 kg Kaela Yoo eybold - External BMI 2022-09-28 15:12:00 22.92 kg/m2 Kaela S eybold - External Systolic blood 2022-09-28 15:12:00 136 mm[Hg] Kaela Seybold - pressure External Diastolic blood 2022-09-28 15:12:00 60 mm[Hg] Minhse y Seybold - pressure External Heart rate 2022-09-28 15:12:00 58 /min Kaela Yoo eybold - External Systolic blood 2022-07-13 15:55:00 145 mm[Hg] [facility] pressure Diastolic blood 2022-07-13 15:55:00 80 mm[Hg] [facility] pressure Heart rate 2022-07-13 15:55:00 52 /min [facility] Body temperature 2022-07-13 15:55:00 36.28 Tata [facility] Respiratory rate 2022-07-13 15:55:00 20 /min [facility] Body height 2022-07-13 15:55:00 167.6 cm [facility] Body weight 2022-07-13 15:55:00 64.32 kg [facility] BMI 2022-07-13 15:55:00 22.89 kg/m2 [facility] Oxygen saturation in 2022-07-13 15:55:00 95 /min [facility] Arterial blood by Pulse oximetry Procedures Procedure Date / Time Performing Source Performed Clinician LIPID PANEL 2022-07-13 Janusz Gross 16:20:00 [facility] CBC WITH PLATELET AND DIFFERENTIAL 2022-05-26 Derek Dee 22:17:00 [facility] COMPREHENSIVE METABOLIC PANEL 2022-05-26 Saul Dee [facility]odist 22:17:00 [facility] ESTIMATED GFR 2022-05-26 Saul Dee 22:17:[address] [facility] [address] RENAL STONE PROTOCOL 2022-05-26 Saul Dee t 22:11:00 [facility] URINE CULTURE 2022-05-26 Saul Dee 22:06:00 [facility] URINALYSIS SCREEN AND MICROSCOPY, 2022-05-26 Saul Dee WITH REFLEX TO CULTURE 22:06:00 [facility] ECG ED PRELIMINARY INTERPRETATION 2022-04-13 Laury Milian 19:13:31 [facility] XR CHEST 2 VW 2022-04-13 Saul Dee 17:17:00 [facility] RESPIRATORY PATHOGEN PANEL WITH 2022-04-13 Saul Dee COVID-19 RT-PCR 16:53:00 [facility] COMPREHENSIVE METABOLIC PANEL 2022-04-13 Saul Dee thodist 16:51:00 [facility] CBC WITH PLATELET AND DIFFERENTIAL 2022-04-13 Derek Dee 16:51:00 [facility] TROPONIN T 2022-04-13 Saul Dee 16:51:00 [facility] B NATRIURETIC PEPTIDE 2022-04-13 Saul Dee 16:51:00 [facility] ESTIMATED GFR 2022-04-13 Saul Dee 16:51:00 [facility] POC URINALYSIS DIPSTICK 2022-04-13 Cecily Love t 15:57:00 [facility] POCT RAPID STREP A 2022-04-13 Cecily Love 15:45:00 Hospital POCT INFLUENZA A/B 2022-04-13 Cecily Love 15:45:00 Hospital COVID-19 QUALITATIVE RT-PCR 2022-04-13 Cecily Love 15:42:00 Hospital SURGICAL PATHOLOGY REQUEST 2021-12-10 William Gutiérrezo dist 17:17:00 [facility] COLONOSCOPY 2021-12-10 William Gutiérrez 17:00:00 [facility] ESOPHAGOGASTRODUODENOSCOPY (EGD) 2021-12-10 William Gutiérrez 17:00:00 [facility] COVID-19 QUALITATIVE RT-PCR 2021-12-08 William Gutiérrez odist 16:38:00 [facility] MRI LUMBAR SPINE WO CONTRAST 2021-11-30 Piyush Maria M hodist 21:26:24 Hospital XR HIP 3-4 VIEWS BILATERAL 2021-11-30 Maria M Pickett Xavio dist 21:25:09 [facility] LIPID PANEL 2021-11-10 Janusz Gross Buddhist 16:11:00 [facility] MAMMO BREAST SCREEN TOMOSYNTHESIS 2021-11-10 Janusz Grossist BILATERAL 15:45:45 [facility] Plan of Care Planned Activity Planned Date Details Comments Source Future Scheduled 2023-02-16 Hepatitis C [facility] Test 05:18:27 screening Hospital (procedure) [code = 616144424] Future Scheduled 2023-02-16 65[facility] [facility] Test 05:18:27 VACCINE (2 - PPSV23 Hospital if available, else PCV20) [code = 65+ PNEUMOCOCCAL VACCINE (2 - PPSV23 if available, else PCV20)] Future Scheduled 2023-02-16 COVID-19 VACCINE (5 Meth odist Test 05:18:27 - Booster for Pfizer Hospita l series) [code = COVID-19 VACCINE (5 - Booster for Pfizer series)] Future Scheduled 2023-02-16 INFLUENZA VACCINE Method ist Test 05:18:27 [code = INFLUENZA Hospital VACCINE] Future Scheduled 2023-02-16 COLONOSCOPY [facility] Test 05:18:27 SCREENING [code = Hospital COLONOSCOPY SCREENING] Future Scheduled 2022-10-27 Hepatitis C [facility] Test 16:51:52 screening Hospital (procedure) [code = 439524852] Future Scheduled 2022-10-27 65+ [facility]OC[facility] [facility] Test 16:51:52 VACCINE (2 - PPSV23 Hospital if available, else PCV20) [code = 65+ PNEUMOCOCCAL VACCINE (2 - PPSV23 if available, else PCV20)] Future Scheduled 2022-10-27 COVID-19 VACCINE (5 Meth odist Test 16:51:52 - Booster for Pfizer Hospita l series) [code = COVID-19 VACCINE (5 - Booster for Pfizer series)] Future Scheduled 2022-10-27 COLONOSCOPY [facility] Test 16:51:52 SCREENING [code = Hospital COLONOSCOPY SCREENING] Future Scheduled 2022-10-27 Hepatitis C [facility] Test 16:51:52 screening Hospital (procedure) [code = 246769850] Future Scheduled 2022-10-27 65+ [facility]OC[address] [facility] Test 16:51:52 VACCINE (2 - PPSV23 Hospital if available, else PCV20) [code = 65+ PNEUMOCOCCAL VACCINE (2 - PPSV23 if available, else PCV20)] Future Scheduled 2022-10-27 COVID-19 VACCINE (5 Meth odist Test 16:51:52 - Booster for Pfizer Hospita l series) [code = COVID-19 VACCINE (5 - Booster for Pfizer series)] Future Scheduled 2022-10-27 COLONOSCOPY [facility] Test 16:51:52 SCREENING [code = Hospital COLONOSCOPY SCREENING] Future Scheduled 2022-10-27 Hepatitis C [facility] Test 16:51:52 screening Hospital (procedure) [code = 537702028] Future Scheduled 2022-10-27 65+ [facility]OC[address] [facility] Test 16:51:52 VACCINE (2 - PPSV23 Hospital if available, else PCV20) [code = 65+ PNEUMOCOCCAL VACCINE (2 - PPSV23 if available, else PCV20)] Future Scheduled 2022-10-27 COVID-19 VACCINE (5 Meth odist Test 16:51:52 - Booster for Pfizer Hospita l series) [code = COVID-19 VACCINE (5 - Booster for Pfizer series)] Future Scheduled 2022-10-27 COLONOSCOPY [facility] Test 16:51:52 SCREENING [code = Hospital COLONOSCOPY SCREENING] Future Scheduled 2022-10-27 Hepatitis C [facility] Test 16:51:52 screening Hospital (procedure) [code = 591931459] Future Scheduled 2022-10-27 65+ [facility]OC[address] [facility] Test 16:51:52 VACCINE (2 - PPSV23 Hospital if available, else PCV20) [code = 65+ PNEUMOCOCCAL VACCINE (2 - PPSV23 if available, else PCV20)] Future Scheduled 2022-10-27 COVID-19 VACCINE (5 Meth odist Test 16:51:52 - Booster for Pfizer Hospita l series) [code = COVID-19 VACCINE (5 - Booster for Pfizer series)] Future Scheduled 2022-10-27 COLONOSCOPY [facility] Test 16:51:52 SCREENING [code = Hospital COLONOSCOPY SCREENING] Future Scheduled 2022-10-04 Hepatitis C [facility] Test 08:57:38 screening Hospital (procedure) [code = [id number]] Future Scheduled 2022-10-04 65+ [facility]OCO[address] [facility] Test 08:57:38 VACCINE (2 - PPSV23 Hospital if available, else PCV20) [code = 65+ PNEUMOCOCCAL VACCINE (2 - PPSV23 if available, else PCV20)] Future Scheduled 2022-10-04 COVID-19 VACCINE (5 Meth odist Test 08:57:38 - Booster for Pfizer Hospita l series) [code = COVID-19 VACCINE (5 - Booster for Pfizer series)] Future Scheduled 2022-10-04 COLONOSCOPY [facility] Test 08:57:38 SCREENING [code = Hospital COLONOSCOPY SCREENING] Future Scheduled 2022-10-04 HEPATITIS B VACCINES Postponed from M ethodist Test 08:57:38 (1 of 3 - 3-dose 1946 (Not Hospital series) [code = Indicated) HEPATITIS B VACCINES (1 of 3 - 3-dose series)] Encounters Start End Encounter Admission Attending Care Care Encounter Source Date/Time Date/Time Type Type Clinicians Facility Department ID 2022-12-17 2022-12-17 Refill Vidya Gross.2.840.1 [id number] Methodi 00:00:00 00:00:00 Janusz George 49108.1.1 695 s t 3.430.2.7 Hospit a .3.874401 l .8 2022-10-14 2022-10-14 Outpatient KAELA SORTO [id number] Kaela 00:00:00 00:00:00 ELIZABETH paiz 2022-10-08 2022-10-08 Outpatient KAELA MARTINEZ [id number] Kaela 00:00:00 00:00:00 JIM Garciaol chencho 2022-10-06 2022-10-06 Outpatient KAELA MARTINEZ [id number] Kaela 09:30:00 09:30:00 JIM Garciaol chencho 2022-10-04 2022-10-04 Outpatient KAELA MARTINEZ [id number] Kaela 09:45:00 09:45:00 JIM Smallwoodybol chencho 2022-10-04 2022-10-04 Outpatient KAELA MARTINEZ [id number] Kaela 00:00:00 00:00:00 JIM Seybol d 2022-10-03 2022-10-03 Outpatient RAMON KAELA KAELA [id number] Kaela 00:00:00 00:00:00 LIZ Barajas ld 2022-09-28 2022-09-28 Outpatient LAB90 KAELA KAELA [id number] Kaela 10:45:00 10:45:00 Seybol d 2022-09-28 2022-09-28 Outpatient JUAN KAELA KRAMER [id number] Kaela 09:45:00 09:45:00 JIM Seybol d 2022-08-18 2022-08-18 Refill Ferdousi, 1.2.840.1 [id number] 2100 [id number] Methodi 00:00:00 00:00:00 Gul E Rukh 03999.1.1 738 s t 3.430.2.7 Hospit a .3.489311 l .8 2022-08-18 2022-08-18 Refill Ferdousi, 1.2.840.1 [id number] 2100 [id number] Methodi 00:00:00 00:00:00 Gul E Rukh 53253.1.1 738 s t 3.430.2.7 Hospit a .3.113159 l .8 2022-07-14 2022-07-14 Refill Solo, 1.2.840.1 [id number] 2100 936371 Methodi 00:00:00 00:00:00 Aguilar M 16577.1.[address] 3.430.2.7 Hospit a .3.900971 l .8 2022-07-14 2022-07-14 Refill Solo, 1.2.840.1 [id number] 2100 466611 Methodi 00:00:00 00:00:00 Wendyh M [address]36.1.[address] 3.430.2.7 Hospit a .3.942503 l .8 2022-07-13 2022-07-13 Office Ferdousi, 1.2.840.1 [id number] 2100 983895 Methodi 11:00:00 11:25:07 Visit Gul E Rukh 11778.1.1 624 s t 3.430.2.7 Hospit a .3.556480 l .8 2022-07-13 2022-07-13 Office Ferdousi, 1.2.840.1 [id number] Methodi 11:00:00 11:25:07 Visit Janusz George 71885.1.1 624 s t 3.430.2.7 Hospit a .3.729361 l .8 2022-07-13 2022-07-13 Travel 1.2.840.1 1.2.263.124 5489 265184 Methodi 00:00:00 00:00:[address] 3.430.2.7 0.2.7.3.698 Ho spita .3.970067 084.8 l .8 2022-07-13 2022-07-13 Travel 1.2.840.1 1.2.392.350 0290 623099 Methodi 00:00:00 00:00:[address] 3.430.2.7 0.2.7.3.698 Ho spita .3.715428 084.8 l .8 2022-06-29 2022-06-29 Refill Ferdousi, 1.2.840.1 [id number] Methodi 00:00:00 00:00:00 Abdelrahmanl Colt Hernandezkh 53956.1.1 787 s t 3.430.2.7 Hospit a .3.840700 l .8 2022-06-29 2022-06-29 Refill Ferdousi, 1.2.840.1 [id number] Methodi 00:00:00 00:00:00 Gul E Davidkh 15276.1.1 787 s t 3.430.2.7 Hospit a .3.033026 l .8 2022-06-02 2022-06-02 Telephone Ferdousi, 1.2.840.1 [id number] Methodi 00:00:00 00:00:00 Gul Colt Hernandezkh 90858.1.1 787 s t 3.430.2.7 Hospit a .3.678135 l .8 2022-06-02 2022-06-02 Telephone Jesusdoantoine, 1.2.840.1 [id number] 21 [id number] Methodi 00:00:00 00:00:00 Gul E Rukh 56529.1.1 787 s t 3.430.2.7 Hospit a .3.111937 l .8 2022-06-01 2022-06-01 Refill Ferdousi, 1.2.840.1 [id number] 2099 818899 Methodi 00:00:00 00:00:00 Gul E Rukh 68519.1.1 693 s t 3.430.2.7 Hospit a .3.462338 l .8 2022-06-01 2022-06-01 Refill Jesusdousi, 1.2.840.1 [id number] 2099 941201 Methodi 00:00:00 00:00:00 Gul E Davidkh 21930.1.1 693 s t 3.430.2.7 Hospit a .3.243143 l .8 2022-05-26 2022-05-26 Emergency [place], 1.2.840.1 [id number] 436 4278005 Methodi 16:55:00 19:04:[address] Go 3.430.2.7 Hospit a .3.621972 l .8 2022-05-26 2022-05-26 Office Parth 1.2.840.1 [id number] 914438 2392 Methodi 16:15:00 16:44:42 Visit Cecily 16669.1.[address] 3.430.2.7 Hospit a .3.846013 l .8 2022-05-26 2022-05-26 Office Parth 1.2.840.1 [id number] 398665 3064 Methodi 16:15:00 16:44:42 Visit Cecily 02440.1.[address] 3.430.2.7 Hospit a .3.977590 l .8 2022-05-26 2022-05-26 Emergency [facility] 680 [id number] 574 [place] 00:00:00 00:00:00 JOSIE-OSVALDO [address] 2022-05-26 2022-05-26 Refill Ferdousi, 1.2.840.1 [id number] 2099 834352 Methodi 00:00:00 00:00:00 Gul E Davidkh 31479.1.1 751 s t 3.430.2.7 Hospit a .3.838039 l .8 2022-05-26 2022-05-26 Refill Ferdousi, 1.2.840.1 [id number] 2100 664012 Methodi 00:00:00 00:00:00 Gul E Rukh 58650.1.1 751 s t 3.430.2.7 Hospit a .3.869144 l .8 2022-05-25 2022-05-25 Travel 1.2.840.1 1.2.964.710 1121 199351 Methodi 00:00:00 00:00:[address] 3.430.2.7 0.2.7.3.698 Ho spita .3.046464 084.8 l .8 2022-05-25 2022-05-25 Travel 1.2.840.1 1.2.947.639 9543 854013 Methodi 00:00:00 00:00:[address] 3.430.2.7 0.2.7.3.698 Ho spita .3.922153 084.8 l .8 2022-05-21 2022-05-21 Office Love, 1.2.840.1 [id number] 684815 6011 Methodi 09:15:00 09:53:34 Visit Cecily 12988.1.[address] 3.430.2.7 Hospit a .3.769710 l .8 2022-05-21 2022-05-21 Office Love, 1.2.840.1 005982315 706947 1080 Methodi 09:15:00 09:53:34 Visit Cecily 63125.1.[address] 3.430.2.7 Hospit a .3.795194 l .8 2022-05-20 2022-05-20 Travel 1.2.840.1 1.2.992.977 0149 080819 Methodi 00:00:00 00:00:[address] 3.430.2.7 0.2.7.3.698 Ho spita .3.483423 084.8 l .8 2022-05-20 2022-05-20 Travel 1.2.840.1 1.2.263.720 9247 449548 Methodi 00:00:00 00:00:[address] 3.430.2.7 0.2.7.3.698 Ho spita .3.592884 084.8 l .8 2022-05-10 2022-05-10 Outpatient [facility] PDPFFES [facility]DM [facility]H 00:00:00 00:00:00 [id number] 8 2022-04-28 2022-04-28 Telephone Ginny, 1.2.840.1 [id number] Methodi 00:00:00 00:00:00 Gul E Rukh 40458.1.1 639 s t 3.430.2.7 Hospit a .3.351638 l .8 2022-04-28 2022-04-28 Telephone Ginny, 1.2.840.1 [id number] Methodi 00:00:00 00:00:00 Gul E Rukh 69858.1.1 639 s t 3.430.2.7 Hospit a .3.881249 l .8 2022-04-16 2022-04-16 Refill Ginny, 1.2.840.1 [id number] 2099 876778 Methodi 00:00:00 00:00:00 Gul E Rukh 09813.1.1 136 s t 3.430.2.7 Hospit a .3.349889 l .8 2022-04-16 2022-04-16 Refill Ginny, 1.2.840.1 [id number] 2100 286313 Methodi 00:00:00 00:00:00 Janusz George 24737.1.1 136 s t 3.430.2.7 Hospit a .3.140537 l .8 2022-04-13 2022-04-13 Emergency [facility], 1.2.840.1 [id number] 770 0174597 Methodi 12:02:00 16:59:[address] Go 3.430.2.7 Hospit a .3.800861 l .8 2022-04-13 2022-04-13 Office Parth, 1.2.840.1 876364500 015655 0423 Methodi 10:15:00 11:28:10 Visit Cecily 42548.1.[address] 3.430.2.7 Hospit a .3.359667 l .8 2022-04-13 2022-04-13 Office Parth, 1.2.840.1 349545898 980303 3365 Methodi 10:15:00 11:28:10 Visit Cecily 53751.1.[address] 3.430.2.7 Hospit a .3.196133 l .8 2022-04-13 2022-04-13 [facility] 217 [id number] 657 [place] 00:00:00 00:00:00 BAKARI [address] 2022-04-13 2022-04-13 Documentat Parth, 1.2.840.1 933591402 509 1053479 Methodi 00:00:00 00:00:00 ion Cecily 53508.1.[address] 3.430.2.7 Hospit a .3.211066 l .8 2022-04-13 2022-04-13 Documentat Parth 1.2.840.1 993830449 779 0332484 Methodi 00:00:00 00:00:00 ion Cecily 68865.1.[address] 3.430.2.7 Hospit a .3.785428 l .8 2022-04-12 2022-04-12 Travel 1.2.840.1 1.2.816.235 4229 579158 Methodi 00:00:00 00:00:[address] 3.430.2.7 0.2.7.3.698 Ho spita .3.167649 084.8 l .8 2022-04-12 2022-04-12 Travel 1.2.840.1 1.2.734.680 8319 089404 Methodi 00:00:00 00:00:[address] 3.430.2.7 0.2.7.3.698 Ho spita .3.666822 084.8 l .8 2022-01-16 2022-01-16 Refill Ginny, 1.2.840.1 [id number] 2099 598824 Methodi 00:00:00 00:00:00 Janusz George 12888.1.1 255 s t 3.430.2.7 Hospit a .3.500794 l .8 2022-01-07 2022-01-07 Office Ginny, 1.2.840.1 [id number] 2099 520582 Methodi 10:45:00 11:38:56 Visit Janusz George 50844.1.1 295 s t 3.430.2.7 Hospit a .3.041983 l .8 2022-01-07 2022-01-07 Travel 1.2.840.1 1.2.668.204 1105 893673 Methodi 00:00:00 00:00:[address] 3.430.2.7 0.2.7.3.698 Ho spita .3.513769 084.8 l .8 2021-12-15 2021-12-15 Travel 1.2.840.1 1.2.585.646 8247 197216 Methodi 00:00:00 00:00:[address] 3.430.2.7 0.2.7.3.698 Ho spita .3.904550 084.8 l .8 2021-12-10 2021-12-10 [facility], 1.2.840.1 [id number] 21 [id number] Methodi 09:39:00 12:14:00 Encounter Zeid Faeq 34454.1.[address] 3.430.2.7 Hospit a .3.256526 l .8 2021-12-10 2021-12-10 [facility], 1.2.840.1 [id number] 208 [id number] Methodi 11:15:00 12:00:[address] 3.430.2.7 Hospit a .3.962237 l .8 2021-12-10 2021-12-10 Anesthesia Bertin Arias 1.2.840.1 6007459 [id number] Methodi 11:01:00 11:31:00 Event Angelia Burk 20697.1.1 142 s t 3.430.2.7 Hospit a .3.166594 l .8 2021-12-10 2021-12-10 Travel 1.2.840.1 1.2.177.416 5016 084954 Methodi 00:00:00 00:00:[address] 3.430.2.7 0.2.7.3.698 Ho spita .3.050131 084.8 l .8 2021-12-08 2021-12-08 Outpatient [facility] 2100 [id number] [place] 00:00:00 00:00:00 ZEID [address] 2021-12-02 2021-12-02 Telephone Piyush, 1.2.840.1 [id number] Methodi 00:00:00 00:00:00 Maria M 48730.1.[address] 3.430.2.7 Hospit a .3.148255 l .8 2021-12-02 2021-12-02 Telephone Piyush, 1.2.840.1 [id number] [id number] Methodi 00:00:00 00:00:00 Maria M 70150.1.[address] 3.430.2.7 Hospit a .3.391197 l .8 2021-11-30 2021-11-30 [facility] Lilliana Giron 1.2.840.1 [id number] 2 [id number] Methodi 13:56:10 23:59:[address] 3.430.2.7 Hospit a .3.756655 l .8 2021-11-30 2021-11-30 [facility] Lilliana Giron 1.2.840.1 [id number] 2 [id number] Methodi 13:54:50 13:55:[address] 3.430.2.7 Hospit a .3.571691 l .8 2021-11-17 2021-11-17 Office Piyush, 1.2.840.1 [id number] 533073 5991 Methodi 13:00:00 13:42:20 Visit Maria M 80185.1.[address] 3.430.2.7 Hospit a .3.864870 l .8 2021-11-17 2021-11-17 Travel 1.2.840.1 1.2.206.872 1154 561538 Methodi 00:00:00 00:00:[address] 3.430.2.7 0.2.7.3.698 Ho spita .3.877146 084.8 l .8 2021-11-16 2021-11-16 Telephone Selina, 1.2.840.1 [id number] 2099 885700 Methodi 00:00:00 00:00:[address] 3.430.2.7 Hospit a .3.518825 l .8 2021-11-16 2021-11-16 Telephone Ginny, 1.2.840.1 [id number] [id number] Methodi 00:00:00 00:00:00 Janusz George 34903.1.1 372 s t 3.430.2.7 Hospit a .3.903926 l .8 2021-11-16 2021-11-16 Telephone Ginny, 1.2.840.1 [id number] 21 [id number] Methodi 00:00:00 00:00:00 Janusz George 84221.1.1 489 s t 3.430.2.7 Hospit a .3.651142 l .8 2021-11-12 2021-11-12 Office Ginny, 1.2.840.1 [id number] 2100 366034 Methodi 10:30:00 12:12:38 Visit Janusz George 65509.1.1 714 s t 3.430.2.7 Hospit a .3.488362 l .8 2021-11-12 2021-11-12 Orders Arthur, 1.2.840.1 [id number] 90649 92514 Methodi 00:00:00 00:00:00 Only Lm 22194.1.[address] 3.430.2.7 Hospit a .3.757756 l .8 2021-11-12 2021-11-12 Travel 1.2.840.1 1.2.677.943 7795 575393 Methodi 00:00:00 00:00:[address] 3.430.2.7 0.2.7.3.698 spita .3.768331 084.8 l .8 2021-11-11 2021-11-11 Office Marla, 1.2.840.1 [id number] 844 [id number] Methodi 11:30:00 12:15:40 Visit William Schaffer 96801.1.[address] 3.430.2.7 Hospit a .3.903434 l .8 2021-11-10 2021-11-10 Hospital Jesusantoine, 1.2.840.1 [id number] 409 [id number] Methodi 08:56:13 23:59:00 Encounter Janusz George 87903.1.[address] 3.430.2.7 Hospit a .3.951945 l .8 2021-11-10 2021-11-10 Travel 1.2.840.1 1.2.522.559 2901 172892 Methodi 00:00:00 00:00:[address] 3.430.2.7 0.2.7.3.698 Ho spita .3.886777 084.8 l .8 2021-11-09 2021-11-09 Telephone Ferdousi, 1.2.840.1 [id number] 21 [id number] Methodi 00:00:00 00:00:00 Janusz George 01362.1.1 011 s t 3.430.2.7 Hospit a .3.346052 l .8 2021-11-09 2021-11-09 Refill Reyna, 1.2.840.1 [id number] 2100 405208 Methodi 00:00:00 00:00:[address] 3.430.2.7 Hospit a .3.359109 l .8 2021-11-09 2021-11-09 Refill Reyna, 1.2.840.1 [id number] 2100 436175 Methodi 00:00:00 00:00:[address] 3.430.2.7 Hospit a .3.867855 l .8 2021-11-03 2021-11-03 Telephone Ginny, 1.2.840.1 [id number] 21 [id number] Methodi 00:00:00 00:00:00 Janusz George 22355.1.1 929 s t 3.430.2.7 Hospit a .3.514207 l .8 2021-11-03 2021-11-03 Orders Chris, 1.2.840.1 [id number] 158876 2170 Methodi 00:00:00 00:00:00 Only Rachel Paiz 69306.1.[address] 3.430.2.7 Hospit a .3.495826 l .8 2021-10-28 2021-10-28 Telephone Colby, 1.2.840.1 [id number] 2100 465644 Methodi 00:00:00 00:00:[address] 3.430.2.7 Hospit a .3.217255 l .8 2021-10-21 2021-10-21 Travel 1.2.840.1 1.2.833.509 9218 336665 Methodi 00:00:00 00:00:[address] 3.430.2.7 0.2.7.3.698 Ho spita .3.029134 084.8 l .8 2021-10-15 2021-10-15 Refill Ginny, 1.2.840.1 [id number] 2099 570503 Methodi 00:00:00 00:00:00 Janusz George 71193.1.1 219 s t 3.430.2.7 Hospit a .3.223369 l .8 2021-10-14 2021-10-14 Refill Saurav, 1.2.840.1 [id number] 186284 5666 Methodi 00:00:00 00:00:[address] 3.430.2.7 Hospit a .3.368347 l .8 2021-10-05 2021-10-05 Travel 1.2.840.1 1.2.487.543 5702 275474 Methodi 00:00:00 00:00:[address] 3.430.2.7 0.2.7.3.698 Ho spita .3.781552 084.8 l .8 2021-10-01 2021-10-01 Outpatient GINNY [facility] [id number] [place] 00:00:00 00:00:00 GUL [address] 2021-09-24 2021-09-24 Outpatient [facility] [id number] [place] 00:00:00 00:00:[address] 2021-08-19 2021-08-19 Outpatient LILLIANA GIRON [facility] 494 [id number] [place] 00:00:00 00:00:[address] 2021-08-17 2021-08-17 Outpatient FERDOUSI, [facility] 45840 63822 [place] 00:00:00 00:00:00 GUL [address] 2021-07-23 2021-07-23 Outpatient GIRON, LILLIANA [facility] 785 [id number] [place] 00:00:00 00:00:[address] 2021-07-15 2021-07-15 Outpatient MCARTHUR, [facility] [id number] 766 [place] 00:00:00 00:00:00 NAA [address] 2021-07-07 2021-07-07 Outpatient GIRON, LILLIANA [facility] 263 [id number] [place] 00:00:00 00:00:[address] 2021-07-07 2021-07-07 Outpatient GIRON, LILLIANA [facility] [id number] [place] 00:00:00 00:00:[address] 2021-06-30 2021-06-30 Outpatient GIRON, LILLIANA [facility] [id number] [place] 00:00:00 00:00:[address] 2021-06-30 2021-06-30 Outpatient GIRON, LILLIANA [facility] [id number] [place] 00:00:00 00:00:[address] 2021-01-09 2021-01-09 Emergency HOLLAND, [facility] [id number] [place] 00:00:00 00:00:00 PEDRO PABLO [address] 2021-01-05 2021-01-06 Outpatient VLADBEN, [facility] [id number] [place] 00:00:00 00:00:00 JESSICA [address] 2020-12-11 2020-12-11 Outpatient [facility] [id number] [place] 00:00:00 00:00:[address] 2020-10-20 2020-10-20 Outpatient SALVATO, [facility] [id number] [place] 00:00:00 00:00:00 OLGA LIDIA [address] 2020-10-20 2020-10-20 Outpatient SALVATO, [facility] [id number] [place] 00:00:00 00:00:00 OLGA LIDIA 724 [address] [address] 2020-04-16 2020-04-16 Outpatient LINDA HAMEED [facility] [id number] [place] 00:00:00 00:00:[address] 2020-04-16 2020-04-16 Outpatient LINDA HAMEED [facility] [id number] [place] 00:00:00 00:00:[address] Results Test Description Test Time Test Comments Results Result Comments Source Lipid panel 2022-07-14 06:08:00 Test Item Value Reference Range Interpretation Comme nts Cholesterol (test code = 181 mg/dL 849-130 4304-3) Triglycerides (test code = 86 mg/dL 0-149 2571-8) HDL cholesterol (test code 55 mg/dL See_Comment [Automated message] = 2085-06) The system [employer] generated this result transmitted ref erence range: >=39. Th e reference range was not used to interpr et this result as normal/abnormal . VLDL cholesterol cee (test 16 mg/dL 5-40 code = 73548-5) LDL Chol Calc (NIH) (test 110 mg/dL 0-99 H code = 37096-3) Non-HDL cholesterol (test 126 mg/dL 0-129 code = 63147-4) ELLEN (test code = ELLEN) Performed at: [address] [place] [address] [id number] Director: Sergei Marc MD, Phone: [phone] Lab Interpretation (test Abnormal code = 04161-6) [id number] 06:08:00 Test Item Value Reference Range Interpretation Comments Cholesterol (test 181 mg/dL 100-199 code = 3-3) Triglycerides (test 86 mg/dL 0-149 code = 2571-8) HDL cholesterol (test 55 mg/dL See_Comment [Auto mated code = 2085-06) message] The system which generated this result transmitted reference range : >=39. The reference range was not used to interpret this result as normal/abnormal . VLDL cholesterol cee 16 mg/dL 5-40 (test code = 21474-5) LDL Chol Calc (NIH) 110 mg/dL 0-99 H (test code = 80778-7) Non-HDL cholesterol 126 mg/dL 0-129 (test code = 54595-6) ELLEN (test code = ELLEN) Performed at: [address] [place] [address] [id number] Director: Sergei Marc MD, Phone: [phone] Lab Interpretation Abnormal (test code = 34766-1) [facility] [id number] 06:08:00 Test Item Value Reference Range Interpretation Comments Cholesterol (test 181 mg/dL 100-199 code = 2093-3) Triglycerides (test 86 mg/dL 0-149 code = 2571-8) HDL cholesterol (test 55 mg/dL See_Comment [Auto mated code = 2084-) message] The system which generated this result transmitted reference range : >=39. The reference range was not used to interpret this result as normal/abnormal . VLDL cholesterol cee 16 mg/dL 5-40 (test code = 27282-7) LDL Chol Calc (NIH) 110 mg/dL 0-99 H (test code = 59918-4) Non-HDL cholesterol 126 mg/dL 0-129 (test code = 51286-6) ELLEN (test code = ELLEN) Performed at: [address] [place] [address] [id number] Director: Sergei Marc MD, Phone: [phone] Lab Interpretation Abnormal (test code = 47957-0) [facility]2022-09-21 06:08:00 Test Item Value Reference Range Interpretation Comments Cholesterol (test 181 mg/dL 100-199 code = 2093-3) Triglycerides (test 86 mg/dL 0-149 code = 2571-8) HDL cholesterol (test 55 mg/dL See_Comment [Auto mated code = 2084-9) message] The system which generated this result transmitted reference range : >=39. The reference range was not used to interpret this result as normal/abnormal . VLDL cholesterol cee 16 mg/dL 5-40 (test code = 37731-8) LDL Chol Calc (NIH) 110 mg/dL 0-99 H (test code = 66895-0) Non-HDL cholesterol 126 mg/dL 0-129 (test code = 90341-9) ELLEN (test code = ELLEN) Performed at: [address] [place] [address] [id number] Director: Sergei Marc MD, Phone: [phone] Lab Interpretation Abnormal (test code = 97440-3) [facility] [id number] 06:08:00 Test Item Value Reference Range Interpretation Comments Cholesterol (test 181 mg/dL 100-199 code = 2093-3) Triglycerides (test 86 mg/dL 0-149 code = 2571-8) HDL cholesterol (test 55 mg/dL See_Comment [Auto mated code = 2084-9) message] The system which generated this result transmitted reference range : >=39. The reference range was not used to interpret this result as normal/abnormal . VLDL cholesterol cee 16 mg/dL 5-40 (test code = 63762-4) LDL Chol Calc (NIH) 110 mg/dL 0-99 H (test code = 09575-8) Non-HDL cholesterol 126 mg/dL 0-129 (test code = 42319-3) ELLEN (test code = ELLEN) Performed at: [facility] [id number] Director: Sergei Marc MD, Phone: [phone] Lab Interpretation Abnormal (test code = 15598-9) [facility] [place] [id number] 06:08:00 Test Item Value Reference Range Interpretation Comments Cholesterol (test code = 181 mg/dL 610-779 0814-3) Triglycerides (test code 86 mg/dL 0-149 = 2571-8) HDL cholesterol (test 55 mg/dL >=39 code = 2085-9) VLDL cholesterol cee 16 mg/dL 5-40 (test code = 51963-9) LDL Chol Calc (NIH) (test 110 mg/dL 0-99 H code = 89482-8) Non-HDL cholesterol (test 126 mg/dL 0-129 code = 01579-1) ELLEN (test code = ELLEN) Performed at: [facility] [id number] Director: Sergei Marc MD, Phone: [phone] Lab Interpretation (test Abnormal code = 62234-5) [facility] [id number] 22:37:00 Test Item Value Reference Range Interpretation Comments Urine culture (test SEE COMMENT Bacteriu yobany screen code = 0067137) negative. [facility]2022-08-03 22:37:00 Test Item Value Reference Range Interpretation Comments Urine culture (test SEE COMMENT Bacteriu yobany screen code = 1711083) negative. [facility] [id number] 22:37:00 Test Item Value Reference Range Interpretation Comments Urine culture (test SEE COMMENT Bacteriu yobany screen code = 5068285) negative. [facility] [id number] 22:37:00 Test Item Value Reference Range Interpretation Comments Urine culture (test SEE COMMENT Bacteriu yobany screen code = 6734936) negative. [facility] [id number] 22:37:00 Test Item Value Reference Range Interpretation Comments Urine culture (test SEE COMMENT Bacteriu yobany screen code = 7550492) negative. [facility] [id number] 22:37:00 Test Item Value Reference Range Interpretation Comments Urine culture (test SEE COMMENT Bacteriu yobany screen code = 2731365) [facility] [Presence] in Respiratory specimen by NALINI with probe [id number] 19:05:16 Test Item Value Reference Range Interpretation Comments SARS-CoV-2 (COVID-19) RNA Not detected [Presence] in Respiratory specimen by NALINI with probe detection (test code = 70622-0) Whether patient is employed in a No healthcare setting (test code = 66751-3) Whether the patient has symptoms Yes related to condition of interest (test code = 13210-5) Whether the patient was No hospitalized for condition of interest (test code = 33296-0) Whether the patient was admitted No to intensive care unit (ICU) for condition of interest (test code = 03599-9) Whether patient resides in a No congregate care setting (test code = 52422-2) status (test code = No 18197-1) Date and time of symptom onset Unknown (test code = 93366-0) [facility] urinalysis [id number] 15:57:00 Test Item Value Reference Range Interpretation Comments Color urine, POC (test Yellow code = 5061152) Clarity urine, POC (test Clear code = 7053058) Glucose urine, POC (test Negative Negative code = 1800956) Bilirubin urine, POC Negative Negative (test code = 4198723) Ketones urine, POC (test Negative Negative code = 1909433) Specific gravity urine, >/=1.030 1.005-1.030 POC (test code = 9327400) Blood urine, POC (test Negative Negative code = 6682948) pH urine, POC (test code See_Comment [A utomated message] = 0036647) The system [employer] generated this result transmitted ref erence range: 5.0, 5.5 , 6.0, 6.5, 7.0, 7.5, 8.0, 8.5. The refere nce range was not u sed to interpret this result as normal/abnor mal. Protein urine, POC (test 3+ Negative A code = 5918267) Urobilinogen urine, POC <2.0 See_Comment [Au tomated message] (test code = 3871916) The sy stem which generated this result transmitted ref erence range: <=2.0. T he reference range was not used to int erpret this result as normal/abnormal . Nitrite urine, POC (test Negative Negative code = 9234067) Leukocyte esterase Trace Negative A urine, POC (test code = 6394320) Lab Interpretation (test Abnormal code = 16259-1) [facility] urinalysis [id number] 15:57:00 Test Item Value Reference Range Interpretation Comments Color urine, POC (test Yellow code = 6862864) Clarity urine, POC (test Clear code = 3350421) Glucose urine, POC (test Negative Negative code = 2029232) Bilirubin urine, POC Negative Negative (test code = 6922709) Ketones urine, POC (test Negative Negative code = 6096269) Specific gravity urine, >/=1.030 1.005-1.030 POC (test code = 8899554) Blood urine, POC (test Negative Negative code = 3643936) pH urine, POC (test code See_Comment [A utomated message] = 8422604) The system [employer] generated this result transmitted ref erence range: 5.0, 5.5 , 6.0, 6.5, 7.0, 7.5, 8.0, 8.5. The refere nce range was not u sed to interpret this result as normal/abnor mal. Protein urine, POC (test 3+ Negative A code = 7041526) Urobilinogen urine, POC <2.0 See_Comment [Au tomated message] (test code = 2602214) The sy stem which generated this result transmitted ref erence range: <=2.0. T he reference range was not used to int erpret this result as normal/abnormal . Nitrite urine, POC (test Negative Negative code = 7617416) Leukocyte esterase Trace Negative A urine, POC (test code = 1381356) Lab Interpretation (test Abnormal code = 48015-6) [facility] urinalysis [id number] 15:57:00 Test Item Value Reference Range Interpretation Comments Color urine, POC (test Yellow code = 5839319) Clarity urine, POC (test Clear code = 4854547) Glucose urine, POC (test Negative Negative code = 8271487) Bilirubin urine, POC Negative Negative (test code = 1522170) Ketones urine, POC (test Negative Negative code = 7046213) Specific gravity urine, >/=1.030 1.005-1.030 POC (test code = 8609356) Blood urine, POC (test Negative Negative code = 0404406) pH urine, POC (test code See_Comment [A utomated message] = 4211629) The system [employer] generated this result transmitted ref erence range: 5.0, 5.5 , 6.0, 6.5, 7.0, 7.5, 8.0, 8.5. The refere nce range was not u sed to interpret this result as normal/abnor mal. Protein urine, POC (test 3+ Negative A code = 3514984) Urobilinogen urine, POC <2.0 See_Comment [Au tomated message] (test code = 7280438) The sy stem which generated this result transmitted ref erence range: <=2.0. T he reference range was not used to int erpret this result as normal/abnormal . Nitrite urine, POC (test Negative Negative code = 5308073) Leukocyte esterase Trace Negative A urine, POC (test code = 6660118) Lab Interpretation (test Abnormal code = 55849-8) [facility] urinalysis [id number] 15:57:00 Test Item Value Reference Range Interpretation Comments Color urine, POC (test Yellow code = 7077386) Clarity urine, POC (test Clear code = 6847290) Glucose urine, POC (test Negative Negative code = 3484231) Bilirubin urine, POC Negative Negative (test code = 7358409) Ketones urine, POC (test Negative Negative code = 6386464) Specific gravity urine, >/=1.030 1.005-1.030 POC (test code = 2794673) Blood urine, POC (test Negative Negative code = 0039710) pH urine, POC (test code See_Comment [A utomated message] = 6208423) The system [employer] generated this result transmitted ref erence range: 5.0, 5.5 , 6.0, 6.5, 7.0, 7.5, 8.0, 8.5. The refere nce range was not u sed to interpret this result as normal/abnor mal. Protein urine, POC (test 3+ Negative A code = 2272580) Urobilinogen urine, POC <2.0 See_Comment [Au tomated message] (test code = 8180234) The sy stem which generated this result transmitted ref erence range: <=2.0. T he reference range was not used to int erpret this result as normal/abnormal . Nitrite urine, POC (test Negative Negative code = 5159572) Leukocyte esterase Trace Negative A urine, POC (test code = 4428481) Lab Interpretation (test Abnormal code = 59379-5) [facility] urinalysis [id number] 15:57:00 Test Item Value Reference Range Interpretation Comments Color urine, POC (test Yellow code = 1275324) Clarity urine, POC (test Clear code = 2362294) Glucose urine, POC (test Negative Negative code = 0264483) Bilirubin urine, POC Negative Negative (test code = 0677276) Ketones urine, POC (test Negative Negative code = 0246947) Specific gravity urine, >/=1.030 1.005-1.030 POC (test code = 6333048) Blood urine, POC (test Negative Negative code = 5028270) pH urine, POC (test code See_Comment [A utomated message] = 4014009) The system [employer] generated this result transmitted ref erence range: 5.0, 5.5 , 6.0, 6.5, 7.0, 7.5, 8.0, 8.5. The refere nce range was not u sed to interpret this result as normal/abnor mal. Protein urine, POC (test 3+ Negative A code = 7548318) Urobilinogen urine, POC <2.0 See_Comment [Au tomated message] (test code = 7240555) The sy stem which generated this result transmitted ref erence range: <=2.0. T he reference range was not used to int erpret this result as normal/abnormal . Nitrite urine, POC (test Negative Negative code = 2824040) Leukocyte esterase Trace Negative A urine, POC (test code = 5010725) Lab Interpretation (test Abnormal code = 23889-7) [facility] urinalysis [id number] 15:57:00 Test Item Value Reference Range Interpretation Comments Color urine, POC (test Yellow code = 5738651) Clarity urine, POC (test Clear code = 4365164) Glucose urine, POC (test Negative Negative code = 9381725) Bilirubin urine, POC Negative Negative (test code = 9510188) Ketones urine, POC (test Negative Negative code = 2325519) Specific gravity urine, >/=1.030 1.005-1.030 POC (test code = 8329972) Blood urine, POC (test Negative Negative code = 5830206) pH urine, POC (test code 6.0 See_Comment [A utomated message] = 9884925) The system [employer] generated this result transmitted ref erence range: 5.0, 5.5 , 6.0, 6.5, 7.0, 7.5, 8.0, 8.5. The refere nce range was not u sed to interpret this result as normal/abnor mal. Protein urine, POC (test 3+ Negative A code = 9558679) Urobilinogen urine, POC <2.0 <=2.0 (test code = 5979254) Nitrite urine, POC (test Negative Negative code = 6729901) Leukocyte esterase Trace Negative A urine, POC (test code = 7028789) Lab Interpretation (test Abnormal code = 47971-9) [facility] rapid strep [id number] 15:45:00 Test Item Value Reference Range Interpretation Comments Rapid strep A antigen result (test Negative Negative code = 96912-8) Lab Interpretation (test code = Normal 89772-5) [facility] Influenza [id number] 15:45:00 Test Item Value Reference Range Interpretation Comments Rapid Influenza A Ag (test code = Negative 91047-1) Rapid Influenza B Ag (test code = Negative 66571-7) Lab Interpretation (test code = Normal 07596-4) [facility] rapid strep [id number] 15:45:00 Test Item Value Reference Range Interpretation Comments Rapid strep A antigen result (test Negative Negative code = 32699-8) Lab Interpretation (test code = Normal 60650-4) [facility] Influenza [id number] 15:45:00 Test Item Value Reference Range Interpretation Comments Rapid Influenza A Ag (test code = Negative 36753-6) Rapid Influenza B Ag (test code = Negative 63151-6) Lab Interpretation (test code = Normal 74196-3) [facility] rapid strep [id number] 15:45:00 Test Item Value Reference Range Interpretation Comments Rapid strep A antigen result (test Negative Negative code = 53969-0) Lab Interpretation (test code = Normal 02316-5) [facility] Influenza [id number] 15:45:00 Test Item Value Reference Range Interpretation Comments Rapid Influenza A Ag (test code = Negative 10677-7) Rapid Influenza B Ag (test code = Negative 91886-5) Lab Interpretation (test code = Normal 48652-4) [facility] rapid strep [id number] 15:45:00 Test Item Value Reference Range Interpretation Comments Rapid strep A antigen result (test Negative Negative code = 11050-4) Lab Interpretation (test code = Normal 24180-0) [facility] Influenza [id number] 15:45:00 Test Item Value Reference Range Interpretation Comments Rapid Influenza A Ag (test code = Negative 31770-7) Rapid Influenza B Ag (test code = Negative 47287-9) Lab Interpretation (test code = Normal 64090-8) [facility] rapid strep [id number] 15:45:00 Test Item Value Reference Range Interpretation Comments Rapid strep A antigen result (test Negative Negative code = 66113-8) Lab Interpretation (test code = Normal 09703-2) [facility] Influenza [id number] 15:45:00 Test Item Value Reference Range Interpretation Comments Rapid Influenza A Ag (test code = Negative 88621-8) Rapid Influenza B Ag (test code = Negative 00697-3) Lab Interpretation (test code = Normal 96657-4) [facility] rapid strep [id number] 15:45:00 Test Item Value Reference Range Interpretation Comments Rapid strep A antigen result (test Negative Negative code = 16427-1) Lab Interpretation (test code = Normal 62146-3) [facility] Influenza A/[id number] 15:45:00 Test Item Value Reference Range Interpretation Comments Rapid Influenza A Ag (test code = Negative 39958-2) Rapid Influenza B Ag (test code = Negative 51920-8) Lab Interpretation (test code = Normal 37764-6) [facility] pathology [id number] 22:12:52 Test Item Value Reference Range Interpretation Comments Case number (test code = [id number]) Surgical pathology See link below for report (test code = PDF Lab Report 2255) Result status (test code This is Final Report = [id number]) for [id number] [facility] pathology [id number] 22:12:52 Test Item Value Reference Range Interpretation Comments Case number (test code = [id number]) Surgical pathology See link below for report (test code = PDF Lab Report 2255) Result status (test code This is Final Report = 1193216) for [id number] [facility] pathology [id number] 22:12:52 Test Item Value Reference Range Interpretation Comments Case number (test code = [id number]) Surgical pathology See link below for report (test code = PDF Lab Report 2255) Result status (test code This is Final Report = 3474130) for [id number] [facility] pathology [id number] 22:12:52 Test Item Value Reference Range Interpretation Comments Case number (test code = [id number]) Surgical pathology See link below for report (test code = PDF Lab Report 2255) Result status (test code This is Final Report = [id number]) [address] [id number] 22:12:52 Test Item Value Reference Range Interpretation Comments Case number (test code = [id number]) Surgical pathology See link below for report (test code = PDF Lab Report 7135) Result status (test code This is Final Report = [id number]) [address] ([address]-19) RNA [Presence] in Respiratory specimen by NALINI with probe [id number] 19:15:15 Test Item Value Reference Range Interpretation Comments SARS-CoV-2 (COVID-19) RNA Not detected Not-Detected [Presence] in Respiratory specimen by NALINI with probe detection (test code = 88824-6) Whether patient is employed in a healthcare setting (test code = 35416-8) Whether the patient has symptoms related to condition of interest (test code = 54009-9) Patient was hospitalized because of this condition (test code = 57428-2) Whether the patient was admitted to intensive care unit (ICU) for condition of interest (test code = 13366-9) Whether patient resides in a congregate care setting (test code = 60106-4) [facility]
--- NOTE | 2023-03-17 22:16 | RAD REPORT ---
EXAM DESCRIPTION: CT - Head Brain Wo Cont - 03/17/2023 10:04 pm CLINICAL HISTORY: Headache COMPARISON: 2021 TECHNIQUE: Computed axial tomography of the head was obtained. IV contrast was not requested. All CT scans are performed using dose optimization technique as appropriate and may include automated exposure control or mA/KV adjustment according to patient size. FINDINGS: An intracranial bleed is not seen The ventricles are normal in caliber No significant hypodense areas within the brain visualized No extra-axial fluid collection is noted. Fluid within the sinuses/ mastoids is not seen IMPRESSION: No acute intracranial abnormality is seen If patient's symptoms persist MRI of the brain would be recommended
[2023-03-17] MEDS ORDERED: METOCLOPRAMIDE 10 MG/2mL INJ ONE (22:50)
[2023-03-17] MEDS ORDERED: DIPHENHYDRAMINE 50 MG/ML VIAL ONE (22:50)
[2023-03-17] MEDS ORDERED: KETOROLAC 30 MG/ML INJ ONE (22:50)
[2023-03-17 23:17] LABS: Absolute Lymphocytes (CBC) 2.6 K/uL (0.7-4.9); Lymphocytes % 45.1 % (15.3-44.8); MCV 93.7 fL (80-100); MPV 7.7 fL (7.6-11.3); Protime INR 0.94; RBC Red Blood Cell Count 3.95 M/uL (3.86-4.86)
[2023-03-17 23:33] LABS: Potassium 4.3 mEq/L (3.5-5.1); Troponin High Sensitivity 3.7 pg/mL (<58.9)
[2023-03-18] MEDS ORDERED: cloNIDine HCL 0.1 MG TAB ONE (00:45)
[2023-03-18] MEDS ORDERED: LORAZEPAM 1 MG TABLET ONE (00:46)
[2023-03-18] MEDS ORDERED: PROMETHAZINE 25 MG TABLET ONE (00:46)
[2023-03-18] MEDS ORDERED: HYDROCODONE/APAP 10/325 TAB ONE (00:46)
--- NOTE | 2023-03-18 02:12 | ER ---
Nurse's Notes [facility] Name: Marielena Smiley Age: 77 yrs Sex: Female : 1945 Arrival Date: 03/17/2023 Time: 20:34 Bed 14 Private MD: Diagnosis: Essential (primary) hypertension;Acute global headache. Acutely elevated blood pressure. Tension type headache. Presentation: 03/17 21:26 Chief complaint: Patient states: headache and high blood pressure all day. Coronavirus lg3 screen: Client denies travel out of the [place] in the last 14 days. At this time, the client does not indicate any symptoms associated with coronavirus-19. Ebola Screen: No symptoms or risks identified at this time. Initial Sepsis Screen: Does the patient meet any 2 criteria? No. Patient's initial sepsis screen is negative. Does the patient have a suspected source of infection? No. Patient's initial sepsis screen is negative. Risk Assessment: Do you want to hurt yourself or someone else? Patient reports no desire to harm self or others. Onset of symptoms was March 17, 2023. 21:26 Method Of Arrival: Ambulatory lg3 21:26 Acuity: MIHIR 3 lg3 Triage Assessment: 21:27 Headache History: Denies prior headaches. General: Appears in no apparent distress. lg3 uncomfortable, Behavior is calm, cooperative. Pain: Complains of pain in head Pain currently is 8 out of 10 on a pain scale. Pain began 4 hours ago. Also complains of nausea, photophobia. EENT: No deficits noted. No signs and/or symptoms were reported regarding the EENT system. Neuro: No deficits noted. Bhatia Agitation-Sedation Scale (RASS): 0 - Alert and Calm Level of Consciousness is awake, alert, obeys commands, Oriented to person, place, time, situation. Cardiovascular: No deficits noted. Capillary refill < 3 seconds Clubbing of nail beds is absent JVD is absent Patient's skin is warm and dry. Respiratory: No deficits noted. Airway is patent Respiratory effort is even, unlabored, Respiratory pattern is regular, symmetrical. GI: No deficits noted. No signs and/or symptoms were reported involving the gastrointestinal system. Abdomen is flat, non-distended. : No deficits noted. No signs and/or symptoms were reported regarding the genitourinary system. Derm: No deficits noted. No signs and/or symptoms reported regarding the dermatologic system. Skin is intact, is healthy with good turgor, Skin is dry, Skin is normal, Skin temperature is warm. Musculoskeletal: No deficits noted. No signs and/or symptoms reported regarding the musculoskeletal system. Circulation, motion, and sensation intact. Range of motion: intact in all extremities. Historical: - Allergies: : No Known Allergies; lg3 - Home Meds: 21: Metoprolol Tartrate Oral [Active]; sertraline oral [Active]; Trazodone Oral [Active]; lg3 - PMHx: 21: belkis-prince; Fibromyalgia; hypertension (resolved); lg3 - PSHx: 21: hysterectomy; Cholecystectomy; Appendectomy; lg3 - Immunization history:: Adult Immunizations up to date, Client reports receiving the 2nd dose of the Covid vaccine, Flu vaccine is up to date. - Social history:: Smoking status: Patient denies any tobacco usage or history of. Patient uses alcohol, but reports only rare drinking. - Family history:: not pertinent. Screenin:23 [facility] ED Fall Risk Assessment (Adult) History of falling in the last 3 months, vg1 including since admission No falls in past 3 months (0 pts). Abuse screen: Denies threats or abuse. Denies injuries from another. Nutritional screening: No deficits noted. Tuberculosis screening: No symptoms or risk factors identified. Assessment: 22:35 General: Appears in no apparent distress. uncomfortable, Behavior is calm, cooperative. vg1 Pain: Complains of pain in HEAD Pain currently is 10 out of 10 on a pain scale. Pain began this morning at 0330. Neuro: Level of Consciousness is awake, alert, obeys commands, Oriented to person, place, time, situation, Reports headache. Cardiovascular: Patient's skin is warm and dry. Respiratory: Airway is patent Respiratory effort is even, unlabored. GI: No signs and/or symptoms were reported involving the gastrointestinal system. : No signs and/or symptoms were reported regarding the genitourinary system. EENT: No signs and/or symptoms were reported regarding the EENT system. Derm: Skin is pink, warm \T\ dry. Musculoskeletal: Circulation, motion, and sensation intact. 03/18 00:48 General: Appears in no apparent distress. uncomfortable, Behavior is calm, cooperative. lg3 Pain: Complains of pain in head Pain currently is 9 out of 10 on a pain scale. Neuro: No deficits noted. Bhatia Agitation-Sedation Scale (RASS): +1 Restless Level of Consciousness is awake, alert, obeys commands, Oriented to person, place, time, situation. Cardiovascular: No deficits noted. Capillary refill < 3 seconds Clubbing of nail beds is absent JVD is absent Patient's skin is warm and dry. Respiratory: No deficits noted. Airway is patent Respiratory effort is even, unlabored, Respiratory pattern is regular, symmetrical. GI: No deficits noted. No signs and/or symptoms were reported involving the gastrointestinal system. : No deficits noted. No signs and/or symptoms were reported regarding the genitourinary system. EENT: No deficits noted. No signs and/or symptoms were reported regarding the EENT system. Derm: No deficits noted. No signs and/or symptoms reported regarding the dermatologic system. Skin is intact, is healthy with good turgor, Skin is dry, Skin is normal, Skin temperature is warm. Musculoskeletal: No deficits noted. No signs and/or symptoms reported regarding the musculoskeletal system. Circulation, motion, and sensation intact. Range of motion: intact in all extremities. 02:24 Reassessment: Patient appears in no apparent distress at this time. No changes from lg3 previously documented assessment. Patient and/or family updated on plan of care and expected duration. Pain level reassessed. Patient is alert, oriented x 3, equal unlabored respirations, skin warm/dry/pink. Patient states feeling better. Patient states symptoms have improved. Vital Signs: 03/17 21:26 BP 189 / 86; Pulse 65; Resp 17 S; Temp 98.4(TE); Pulse Ox 97% on R/A; Weight 64.41 kg lg3 (R); Height 6 ft. 5 in. (R); 22:35 BP 186 / 85; Pulse 55; Resp 16; Pulse Ox 99% on R/A; vg1 03/18 00:48 BP 168 / 73; Pulse 84; Resp 17 S; Pulse Ox 98% on R/A; lg3 02:00 BP 145 / 64; Pulse 51; Resp 16 S; Pulse Ox 98% on R/A; lg3 03/17 21:26 Body Mass Index 16.84 (64.41 kg, 195.58 cm) lg3 ED Course: 03/17 20:35 Patient arrived in ED. ja2 21:27 Triage completed. lg3 21:27 Arm band placed on left wrist. lg3 21:29 Roderick Becerra MD is Attending Physician. sp4 22:05 CT Head Brain wo Cont In Process Unspecified. EDMS 22:39 Gayatri Aparicio, RN is Primary Nurse. vg1 22:56 Initial lab(s) drawn, by me, sent to lab. Inserted saline lock: 20 gauge in right vg1 antecubital area, using aseptic technique. Blood collected. 23:23 Patient has correct armband on for positive identification. Placed in gown. Bed in low vg1 position. Call light in reach. Side rails up X2. Adult w/ patient. Client placed on continuous cardiac and pulse oximetry monitoring. NIBP monitoring applied. 03/18 02:10 Chung Khan MD is Referral Physician. sp4 02:25 No provider procedures requiring assistance completed. IV discontinued, intact, lg3 bleeding controlled, No redness/swelling at site. Pressure dressing applied. Administered Medications: 03/17 22:59 Drug: Ketorolac IVP 30 mg Route: IVP; Site: right antecubital; vg1 23:01 Drug: diphenhydrAMINE IVP 25 mg Route: IVP; Site: right antecubital; vg1 23:03 Drug: metoCLOPramide IVP 10 mg Route: IVP; Site: right antecubital; vg1 03/18 00:48 Drug: LORazepam PO 1 mg Route: PO; lg3 02:24 Follow up: Response: No adverse reaction; Marked relief of symptoms; RASS: Drowsy (-1) lg3 00:48 Drug: [place] PO 10 mg-325 mg 1 tabs Route: PO; lg3 02:24 Follow up: Response: No adverse reaction; Marked relief of symptoms; RASS: Drowsy (-1) lg3 00:48 Drug: Promethazine PO 25 mg Route: PO; lg3 02:24 Follow up: Response: No adverse reaction; Marked relief of symptoms lg3 00:48 Drug: cloNIDine PO 0.1 mg Route: PO; lg3 02:24 Follow up: Response: No adverse reaction; Marked relief of symptoms; RASS: Drowsy (-1) lg3 Medication: 02:25 VIS not applicable for this client. lg3 Outcome: 02:11 Discharge ordered by . sp4 02:25 Discharged to home ambulatory, with significant other. lg3 02:25 Condition: stable 02:25 Discharge instructions given to patient, Instructed on discharge instructions, follow up and referral plans. medication usage, Demonstrated understanding of instructions, follow-up care, medications, Prescriptions given X 2. 02:25 Patient left the ED. lg3 Signatures: Dispatcher [employer] EDMS Zahira Pedraza, RN RN lg3 Gayatri Apaircio RN RN vg1 Jackelyn Rand Sergey, MD MD sp4 Corrections: (The following items were deleted from the chart) 03/17 23:24 22:35 BP 186 / 85; Pulse 16bpm; Resp 55bpm; Pulse Ox 99% RA; vg1 vg1
--- NOTE | 2023-03-18 02:12 | EDPHYS ---
Physician Documentation [facility] Name: Marielena Smiley Age: 77 yrs Sex: Female : 1945 Arrival Date: 03/17/2023 Time: 20:34 Bed 14 Private MD: ED Physician Roderick Becerra HPI: 03/17 21:29 This 77 yrs old Female presents to ER via Ambulatory with complaints of High sp4 Blood Pressure, Headache. 21:47 77-year-old female presents with acute onset of moderate to severe global headache sp4 starting at 3:30 today with associated elevated blood pressure at home 190 systolic. Patient denies any history of headache syndromes such as migraine or tension headache. Patient reports moderate to severe global headaches associated with elevated pressure, no other symptoms reported.. Historical: - Allergies: 21:27 No Known Allergies; lg3 - Home Meds: 21:27 Metoprolol Tartrate Oral [Active]; sertraline oral [Active]; Trazodone Oral [Active]; lg3 - PMHx: 21:27 belkis-prince; Fibromyalgia; hypertension (resolved); lg3 - PSHx: 21:27 hysterectomy; Cholecystectomy; Appendectomy; lg3 - Immunization history:: Adult Immunizations up to date, Client reports receiving the 2nd dose of the Covid vaccine, Flu vaccine is up to date. - Social history:: Smoking status: Patient denies any tobacco usage or history of. Patient uses alcohol, but reports only rare drinking. - Family history:: not pertinent. ROS: 21:47 Constitutional: Negative for fever, chills, and weight loss, Eyes: Negative for injury, sp4 pain, redness, and discharge, ENT: Negative for injury, pain, and discharge, Neck: Negative for injury, pain, and swelling, Cardiovascular: Negative for chest pain, palpitations, and edema, Respiratory: Negative for shortness of breath, cough, wheezing, and pleuritic chest pain, Abdomen/GI: Negative for abdominal pain, nausea, vomiting, diarrhea, and constipation, Back: Negative for injury and pain, : Negative for injury, bleeding, discharge, and swelling, MS/Extremity: Negative for injury and deformity, Skin: Negative for injury, rash, and discoloration, Neuro: Negative for headache, weakness, numbness, tingling, and seizure, Psych: Negative for depression, anxiety, Allergy/Immunology: Negative for hives, rash, and allergies Endocrine: Negative for neck swelling, polydipsia, polyuria, polyphagia, and weight changes Hematologic/Lymphatic: Negative for swollen nodes, abnormal bleeding, and unusual bruising Exam: 21:47 Constitutional: This is a well developed, well nourished patient who is awake, alert, sp4 , uncomfortable appearing female. Head/Face: Normocephalic, atraumatic. Eyes: Pupils equal round and reactive to light, extra-ocular motions intact. Lids and lashes normal. Conjunctiva and sclera are not injected. Cornea within normal limits. Periorbital areas with no swelling, redness, or edema. ENT: Nares patent. No nasal discharge, no septal abnormalities noted. Tympanic membranes are normal and external auditory canals are clear. Oropharynx with no redness, swelling, or masses, exudates, or evidence of obstruction, uvula midline. Mucous membranes moist. Neck: Trachea midline, no thyromegaly or masses palpated, and no cervical lymphadenopathy. Supple, full range of motion without nuchal rigidity, or vertebral point tenderness. No Meningismus. Chest/axilla: Normal chest wall appearance and motion. Nontender with no deformity. No lesions are appreciated. Cardiovascular: Regular rate and rhythm with a normal S1 and S2. No gallops, murmurs, or rubs. Normal PMI, no JVD. No pulse deficits. Respiratory: Lungs have equal breath sounds bilaterally, clear to auscultation and percussion. No rales, rhonchi or wheezes noted. No increased work of breathing, no retractions or nasal flaring. Abdomen/GI: Soft, non-tender, with normal bowel sounds. No distension or tympany. No guarding or rebound. No evidence of tenderness throughout. Back: No spinal tenderness. No costovertebral tenderness. Skin: Warm, dry with normal turgor. Normal color with no rashes, no lesions, and no evidence of cellulitis. MS/ Extremity: Pulses equal, no cyanosis. Neurovascular intact. Full, normal range of motion. Neuro: Awake and alert, GCS 15, oriented to person, place, time, and situation. Cranial nerves II-XII grossly intact. Motor strength 5/5 in all extremities. Sensory grossly intact. Psych: Awake, alert, with orientation to person, place and time. Behavior, mood, and affect are within normal limits 03/18 01:58 ECG was reviewed by the Attending Physician. Sinus bradycardia with a rate of 49. sp4 First-degree AV block. Cannot rule out anterior infarct. No ST elevation or depression. No ectopy. Otherwise normal EKG Vital Signs: 03/17 21:26 BP 189 / 86; Pulse 65; Resp 17 S; Temp 98.4(TE); Pulse Ox 97% on R/A; Weight 64.41 kg lg3 (R); Height 6 ft. 5 in. (R); 22:35 BP 186 / 85; Pulse 55; Resp 16; Pulse Ox 99% on R/A; vg1 03/18 00:48 BP 168 / 73; Pulse 84; Resp 17 S; Pulse Ox 98% on R/A; lg3 02:00 BP 145 / 64; Pulse 51; Resp 16 S; Pulse Ox 98% on R/A; lg3 03/17 21:26 Body Mass Index 16.84 (64.41 kg, 195.58 cm) lg3 MDM: 03/17 21:39 Patient medically screened. sp4 03/18 01:58 Differential diagnosis: hypertensive crisis, Malignant HTN, intracerebral hemorrhage. sp4 Data reviewed: vital signs, nurses notes, old medical records, lab test result(s), EKG, radiologic studies, CT scan. Consideration of Admission/Observation Escalation of care including admission/observation considered. ED course: EKG reveals sinus bradycardia at the rate of 49. . 01:59 ED course: Blood work has revealed no signs of end organ damage from hypertension. No sp4 sign of kidney failure. Negative troponin. CT head is unremarkable. ED course: Patient is stable for discharge home with Fioricet as needed headache and also clonidine as needed elevated pressure above 180 systolic. Will advise patient to see chemical lab supervisor Dr. Khan in office in 7 to 14 days for blood pressure check and management of elevated blood pressures.. Patient may also benefit from visit to chemical lab supervisor for management of her headaches.. . 03/17 21:47 Order name: Basic Metabolic Panel; Complete Time: 01:57 sp4 03/17 21:47 Order name: CBC with Diff; Complete Time: :57 sp4 03/17 21:47 Order name: PT-INR; Complete Time: 01: sp4 03/17 21:47 Order name: Troponin HS; Complete Time: : sp4 03/17 21:46 Order name: CT Head Brain wo Cont; Complete Time: : sp4 03/17 21:47 Order name: EKG; Complete Time: 21:48 4 03/17 21:47 Order name: Cardiac monitoring; Complete Time: 23:20 sp4 03/17 21:47 Order name: EKG - Nurse/Tech; Complete Time: 23:20 sp4 03/17 21:47 Order name: IV Saline Lock; Complete Time: 23:20 sp4 03/17 21:47 Order name: Labs collected and sent; Complete Time: 23: sp4 03/17 21:47 Order name: O2 Per Protocol; Complete Time: 23:03/17 21:47 Order name: O2 Sat Monitoring; Complete Time: 23: EC:58 Rate is 49 beats/min. Rhythm is regular, Sinus bradycardia. QRS [place] is Normal. OR sp4 interval is prolonged. QRS interval is normal. QT interval is normal. No Q waves. T waves are Normal. No ST changes noted. Clinical impression: Sinus bradycardia. Interpreted by me. Administered Medications: 03/17 22:59 Drug: Ketorolac IVP 30 mg Route: IVP; Site: right antecubital; vg1 23:01 Drug: diphenhydrAMINE IVP 25 mg Route: IVP; Site: right antecubital; vg1 23:03 Drug: metoCLOPramide IVP 10 mg Route: IVP; Site: right antecubital; vg1 03/18 00:48 Drug: LORazepam PO 1 mg Route: PO; lg3 02:24 Follow up: Response: No adverse reaction; Marked relief of symptoms; RASS: Drowsy (-1) lg3 00:48 Drug: [place] PO 10 mg-325 mg 1 tabs Route: PO; lg3 02:24 Follow up: Response: No adverse reaction; Marked relief of symptoms; RASS: Drowsy (-1) lg3 00:48 Drug: Promethazine PO 25 mg Route: PO; lg3 02:24 Follow up: Response: No adverse reaction; Marked relief of symptoms lg3 00:48 Drug: cloNIDine PO 0.1 mg Route: PO; lg3 02:24 Follow up: Response: No adverse reaction; Marked relief of symptoms; RASS: Drowsy (-1) lg3 Disposition Summary: 03/18/23 02:11 Discharge Ordered Location: Home sp4 Problem: new sp4 Symptoms: have improved sp4 Condition: Stable sp4 Diagnosis - Essential (primary) hypertension sp4 - Acute global headache. Acutely elevated blood pressure. Tension type headache. sp4 Followup: sp4 - With: Chung Khan MD - When: 7 - 10 days - Reason: Recheck today's complaints Discharge Instructions: - Discharge Summary Sheet sp4 - Preventing Hypertension sp4 Prescriptions: - Fioricet 50-300-40 mg Oral capsule - take 1 capsule by ORAL route every 8 hours PRN headache; 30 capsule; Refills: sp4 0, Product Selection Permitted - clonidine HCl 0.1 mg Oral tablet - take 1 tablet by ORAL route every 8 hours PRN systolic blood pressure greater sp4 than 180; 30 tablet; Refills: 0, Product Selection Permitted Signatures: Dispatcher [employer] EDZahira Wilson RN RN lg3 Gayatri Aparicio RN RN vg1 Roderick Becerra MD MD sp4 Corrections: (The following items were deleted from the chart) 03/17 21:55 21:47 Constitutional: This is a well developed, well nourished patient who is awake, sp4 alert, , uncomfortable appearing female. Head/Face: Normocephalic, atraumatic. Eyes: Pupils equal round and reactive to light, extra-ocular motions intact. Lids and lashes normal. Conjunctiva and sclera are not injected. Cornea within normal limits. Periorbital areas with no swelling, redness, or edema. ENT: Nares patent. No nasal discharge, no septal abnormalities noted. Tympanic membranes are normal and external auditory canals are clear. Oropharynx with no redness, swelling, or masses, exudates, or evidence of obstruction, uvula midline. Mucous membranes moist. Neck: Trachea midline, no thyromegaly or masses palpated, and no cervical lymphadenopathy. Supple, full range of motion without nuchal rigidity, or vertebral point tenderness. No Meningismus. Chest/axilla: Normal chest wall appearance and motion. Nontender with no deformity. No lesions are appreciated. Cardiovascular: Regular rate and rhythm with a normal S1 and S2. No gallops, murmurs, or rubs. Normal PMI, no JVD. No pulse deficits. Respiratory: Lungs have equal breath sounds bilaterally, clear to auscultation and percussion. No rales, rhonchi or wheezes noted. No increased work of breathing, no retractions or nasal flaring. Abdomen/GI: Soft, non-tender, with normal bowel sounds. No distension or tympany. No guarding or rebound. No evidence of tenderness throughout. Back: No spinal tenderness. No costovertebral tenderness. Female : Normal external genitalia. Skin: Warm, dry with normal turgor. Normal color with no rashes, no lesions, and no evidence of cellulitis. MS/ Extremity: Pulses equal, no cyanosis. Neurovascular intact. Full, normal range of motion. Neuro: Awake and alert, GCS 15, oriented to person, place, time, and situation. Cranial nerves II-XII grossly intact. Motor strength 5/5 in all extremities. Sensory grossly intact. Psych: Awake, alert, with orientation to person, place and time. Behavior, mood, and affect are within normal limits sp4
[2023-03-18 02:59] VITALS: TEMP 98.4
[2023-03-18 03:11] VITALS: BP 168/73; O2SAT 98
--- NOTE | 2023-03-20 07:31 | EKG ---
Test Date: 2023-03-17 Test Time: 23:14:42 Operating Room Tech: KWABENA MEASUREMENT RESULTS: Intervals: Rate: 49 LA: 232 QRSD: 90 QT: 500 QTc: 451 [place]: P: 32 LA: 232 QRS: 52 T: 51 INTERPRETIVE STATEMENTS: Sinus bradycardia with 1st degree AV block Cannot rule out Anterior infarct, age undetermined Abnormal ECG Compared to ECG 10/04/2022 11:55:23 Myocardial infarct finding now present Electronically Signed On 03-20-23 07:25:53 CDT by Frank Mei
== END 2023-03-18 02:25 | disposition home or self-care (01) ==
LOC: ER 20:34
DX: I10 Essential (primary) hypertension (principal); G44.209 Tension-type headache, unspecified, not intractable
CPT/HCPCS: 93005; 85025; 80048; 36415; 85610; 84484; 70450; 96375; 96374; 99284; Q0169; J2765; J1200

== ENCOUNTER 2023-06-05 08:26 | Emergency (ER) | payer OTHER ==
--- OUTSIDE RECORDS SUMMARY | 2023-06-05 08:33 | XMS REPORT | Continuity of Care Document ---
:1945 Author Organization [facility] t Address [address] [facility] [address] [place] [address] Care Team Providers Name Role Phone Janusz Hutson MD Primary Care Physician [phone] Janusz Hutson MD Attending Clinician Aguilar Banda MA Attending Clinician Unavailable ELIZABETH SORTO Attending Clinician Unavailable JIM MARTINEZ Attending Clinician Unavailable LIZ NAVARRO Attending Clinician Unavailable LAB90 Attending Clinician Unavailable Aguilar Banda MA Attending Clinician Unavailable Rukhsana CALVIN, Deon Quintanilla Attending Clinician [phone] Cecily Lainez Attending Clinician William Gutiérrez MD Attending Clinician Bertin Arias MD Attending Clinician Angelia Remy Attending Clinician MD WILLIAM GUTIÉRREZ Attending Clinician Unavailable Maria M Pickett NP Attending Clinician Lilliana Giron MD Attending Clinician Kirstin Marks MA Attending Clinician Unavailable Sandhya JIMENEZ, Lm Attending Clinician Unavailable Maribell HIGUERA, Randa Attending Clinician Unavailable Chris HIGUERA, Rachel Paiz Attending Clinician Unavailable Colby HIGUERA, Suma Attending Clinician Unavailable Saurav HIGUERA, Carmencita Attending Clinician Unavailable NAA MCARTHUR Attending Clinician Unavailable PEDRO PABLO HOLLAND Attending Clinician Unavailable JESSICA GRAHAM Attending Clinician Unavailable OLGA LIDIA MCKEON Attending Clinician Unavailable LINDA HAMEED Attending Clinician Unavailable LISA LOVE Admitting Clinician Unavailable WILLIAM GUTIÉRREZ Admitting Clinician Unavailable MD WILLIAM GUTIÉRREZ Admitting Clinician Unavailable Payers Payer Name Policy Type Policy Number Effective Date Expiration Date Fredo GUSTAFSON DAVIDA PPO 5 [id number] 2020 00:00:00 Problems Condition Condition Condition Status [...] Colon Disease Active [facility] cancer cancer 11-11 screening screening 00:00: [facility]osp [facility] 00 l Polyp of Polyp of Disease Active [facility] di colon colon 11-11 00:00: Hospita 00 l 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 Added automatic ally from request for surgery [id number] Tinnitus Tinnitus Disease Active 2017-10 Metho di [...] Stop Date Source Natural father Liver disease [facility] Natural mother COPD [facility] Natural mother Hypertension [facility] Social History Social Habit Start Date Stop Date Quantity Comments Source Sexual orientation 2019-10-03 Heterosexual [facility] odist 09:24:58 (finding) Hospital Gender identity 2018-12-18 Identifies as Method ist 20:11:18 female gender Hospital (finding) History SDOH Kaela Seybo ld - Alcohol Frequency Externa l History SDOH Kaela Seybo ld - Alcohol Std Drinks [employer] Technician al History SDOH Kaela Seybo ld - Alcohol Binge External History of Social 2022-12-27 2022-12-[address] function 00:00:00 00:00:00 Hospital Tobacco use and 2022-07-13 2022-07-13 Smokeless tobacco Me thodist exposure 00:00:00 00:00:00 non-user Hospital Alcohol intake 2022-07-13 2022-07-13 [facility] (finding[facility] Hospita l Alcohol Comment 2019-09-13 2019-09-13 [facility] Hospital Sex [birth year] At [birth year] Kaela wongold - 00:00:00 00:00:00 External Smoking Status Start Date Stop Date Source Never smoked tobacco Kaela Garcia old - External Medications Ordered Filled Start Stop Current Ordering Indication Dosage Frequency Signature Comments Components Source Medication Medication Date Date Medication? Clinician (SIG) Name Name metoprolol 2023- Yes [id number] 25mg QD Take 1 [facility] succinate 5-26 05-26 tablet (25 st XL 00:00: 04:59 mg total) Hospita (TOPROL-XL) 00 :00 by mouth l 25 mg 24 hr daily. tablet sertraline Yes [id number] TAKE ONE [facility] (ZOLOFT) 2-[address] 100 MG 00:00: MOUTH Hospita tablet 00 DAILY l sertraline Yes [id number] TAKE ONE [facility] (ZOLOFT) 2-24 TABLET BY [...] Tablet 09:00: daily - 29 Externa l [place]-3 2021-10 Yes 1000mg Take 1,000 [place] Fatty Acids 2-14 mg by Seybold (Fish Oil) 09:00: mouth 3 - 1000 MG 29 times Externa oral daily l Capsule Glucosamine 2021-10 Yes Take by Minh rider -[place]- 2-14 mouth Seybold Vit C-Mn 09:00: - (GLUCOSAMIN 29 Externa E 1500 l COMPLEX OR) Glucosamine 2021-10 Yes Take by Minh rider -Vit 2-14 mouth Seybbacilio D-Hyaluron 09:00: - Acd (Isabell 29 Externa Glucosamine l Plus Vit D3) 2571-2104-1 .65 MG-UNIT-MG oral Tablet [place]-3 2021-10 Yes 1000mg Take 1,000 [place] [...] - 00 Externa l Azithromyci 2021-10- No [id number] Take 2 Kaela n 250 MG 2-06 12-12 tablets by Seyb old oral Tablet 00:00: 05:59 mouth on - 00 :00 day 1 then Externa 1 tablet l by mouth daily for 4 days thereafter . ezetimibe 2021-10 Yes [id number] TAKE ONE [facility] (ZETIA) 10 0-[address] mg tablet 00:00: MOUTH Hospita 00 DAILY l traZODone 2021-10 Yes TAKE ONE Meth fabiola (DESYREL) 0-[address] 100 MG 00:00: MOUTH [facility]ospita tablet 00 EVERY l NIGHT ezetimibe 2021-10 Yes [id number] TAKE ONE [facility] (ZETIA) 10 0-[address] mg tablet 00:00: MOUTH [facility]ospita 00 DAILY l traZODone 2021-10 Yes TAKE ONE Meth fabiola (DESYREL) 0-[address] 100 MG 00:00: MOUTH [facility]ospita tablet 00 EVERY l NIGHT ezetimibe 2021-10 Yes [id number] TAKE ONE [facility] (ZETIA) 10 0-[address] mg tablet 00:00: MOUTH [facility]ospita 00 DAILY l traZODone 2021-10 Yes TAKE ONE Meth fabiola (DESYREL) 0-[address] 100 MG 00:00: MOUTH [facility]ospita tablet 00 EVERY l NIGHT ezetimibe 2021-10 Yes [id number] TAKE ONE [facility] (ZETIA) 10 0-[address] mg tablet 00:00: MOUTH [facility]ospita 00 DAILY l traZODone 2021-10 Yes TAKE ONE Meth fabiola (DESYREL) 0-[address] 100 MG 00:00: MOUTH [facility]ospita tablet 00 EVERY l NIGHT ezetimibe 2021-10 Yes [id number] TAKE ONE [facility] (ZETIA) 10 0-[address] mg tablet 00:00: MOUTH [facility]ospita 00 DAILY l traZODone 2021-10 Yes TAKE ONE Meth fabiola (DESYREL) 0-[address] 100 MG 00:00: MOUTH [facility]ospita tablet 00 EVERY l NIGHT ezetimibe 2021-10 Yes [id number] TAKE ONE [facility] (ZETIA) 10 0-26 TABLET [...] Externa 24 HR l ezetimibe 2021-10 Yes [id number] TAKE ONE [facility] (ZETIA) 10 0-26 TABLET [...] Hospita tablet 10 :00 nightly. l Trazodone 0 Yes 100mg Take 100 Minh sey HCl 100 MG 9-21 mg by Seybold oral Tablet 00:00: mouth - 00 nightly Externa l Trazodone 0 Yes 100mg Take 100 Minh sey HCl 100 MG 9-21 mg by Seybold oral Tablet 00:00: mouth - 00 nightly Externa l traZODone 2021- No 100mg QD Take 1 Meth fabiola (DESYREL) 07-[address] 100 MG 00:00: 00:00 (100 mg Hospita tablet 00 :00 total) by l mouth nightly. traZODone 2021-0 2021- No 100mg QD Take 1 Meth fabiola (DESYREL) 07-[address] 100 MG 00:00: 00:00 (100 mg Hospita tablet 00 :00 total) by l mouth nightly. traZODone 2021-0 2021- No 100mg QD Take 1 Meth fabiola (DESYREL) 07-[address] 100 MG 00:00: 00:00 (100 mg Hospita tablet 00 :00 total) by l mouth nightly. traZODone 2-0 2022- No 100mg QD Take 1 Meth fabiola (DESYREL) -13 08- tablet st 100 MG 00:00: 00:00 (100 mg Hospita tablet 00 :00 total) by l mouth nightly. traZODone 2-0 2022- No 100mg QD Take 1 Meth fabiola (DESYREL) -13 08- tablet st 100 MG 00:00: 00:00 (100 mg Hospita tablet 00 :00 total) by l mouth nightly. traZODone 2-0 2022- No 100mg QD Take 1 Meth fabiola (DESYREL) 07-14- tablet st 100 MG 00:00: 00:00 (100 mg Hospita tablet 00 :00 total) by l mouth nightly. traZODone 2-0 2022- No 100mg QD Take 1 Meth fabiola (DESYREL) 07-[address] 100 MG 00:00: 00:00 (100 mg Hospita tablet 00 :00 total) by l mouth nightly. melatonin 2022-0 2022- No Take by Meth fabiola 10 mg 9-20 09-[address] capsule 11:06: 00:00 Hospita 26 :00 l melatonin 2022-0 2022- No Take by Meth fabiola 10 mg 9-20 09-[address] capsule 11:06: 00:00 Hospita 26 :00 l melatonin 2022-0 2022- No Take by Meth fabiola 10 mg 9-20 09-[address] capsule 11:06: 00:00 Hospita 26 :00 l melatonin 2022-0 2022- No Take by Meth fabiola 10 mg 9-20 09-[address] capsule 11:06: 00:00 Hospita 26 :00 l melatonin 2022-0 2022- No Take by Meth fabiola 10 mg 9-20 09-[address] capsule 11:06: 00:00 Hospita 26 :00 l melatonin 2022-0 2022- No Take by Meth fabiola 10 mg 9-20 09-[address] capsule 11:06: 00:00 Hospita 26 :00 l melatonin 2022-0 2022- No Take by Meth fabiola 10 mg 07-[address] capsule 11:06: 00:00 Hospita 26 :00 l glucosamine 0 Yes Take by Met hodi -D3-hyaluro 9-[address] kavitha acid 10:56: Hospita 1,000 mg- 46 l 25 mcg-1.65 mg tablet glucosamine Yes Take by Met hodi -D3-hyaluro 9-[address] kavitha acid 10:56: Hospita 1,000 mg- 46 l 25 mcg-1.65 mg tablet glucosamine Yes Take by Met hodi -D3-hyaluro 9-[address] kavitha acid 10:56: Hospita 1,000 mg- 46 l 25 mcg-1.65 mg tablet glucosamine Yes Take by Met hodi -D3-hyaluro 9-[address] kavitha acid 10:56: Hospita 1,000 mg- 46 l 25 mcg-1.65 mg tablet glucosamine Yes Take by Met hodi -D3-hyaluro 9-[address] kavitha acid 10:56: Hospita 1,000 mg- 46 l 25 mcg-1.65 mg tablet glucosamine Yes Take by Met hodi -D3-hyaluro 9-[address] kavitha acid 10:56: Hospita 1,000 mg- 46 l 25 mcg-1.65 mg tablet glucosamine Yes Take by Met hodi -D3-hyaluro 9-[address] kavitha acid 10:56: Hospita 1,000 mg- 46 l 25 mcg-1.65 mg tablet metoprolol 2022- No [id number] 25mg QD Take 1 [facility] succinate 07-13 tablet (25 st XL 00:00: 04:59 mg total) Hospita (TOPROL-XL) 00 :00 by mouth l 25 mg 24 hr daily. tablet metoprolol 2022- No [id number] 25mg QD Take 1 [facility] succinate 07-13 tablet (25 st XL 00:00: 04:59 mg total) Hospita (TOPROL-XL) 00 :00 by mouth l 25 mg 24 hr daily. tablet metoprolol 2022- No [id number] 25mg QD Take 1 [facility] succinate 07-13 tablet (25 st XL 00:00: 04:59 mg total) Hospita (TOPROL-XL) 00 :00 by mouth l 25 mg 24 hr daily. tablet metoprolol 2022- No [id number] 25mg QD Take 1 [facility] succinate 07-13 tablet (25 st XL 00:00: 04:59 mg total) Hospita (TOPROL-XL) 00 :00 by mouth l 25 mg 24 hr daily. tablet metoprolol 2022- No [id number] 25mg QD Take 1 [facility] succinate 07-13 tablet (25 st XL 00:00: 04:59 mg total) Hospita (TOPROL-XL) 00 :00 by mouth l 25 mg 24 hr daily. tablet metoprolol No [id number] 25mg QD Take 1 [facility] succinate 07-13 tablet (25 st XL 00:00: 04:59 mg total) Hospita (TOPROL-XL) 00 :00 by mouth l 25 mg 24 hr daily. tablet metoprolol No [id number] 25mg QD Take 1 [facility] succinate 07-13 tablet (25 st XL 00:00: 00:00 mg total) Hospita (TOPROL-XL) 00 :00 by mouth l 25 mg 24 hr daily. tablet ezetimibe No [id number] 10mg QD Take 1 [facility] (ZETIA) 10 9-20 10-26 tablet (10 st mg tablet 00:00: 00:00 mg total) Ho spita 00 :00 by mouth l daily. ezetimibe No [id number] 10mg QD Take 1 [facility] (ZETIA) 10 9-20 10-26 tablet (10 st mg tablet 00:00: 00:00 mg total) Ho spita 00 :00 by mouth l daily. ezetimibe 2021- No [id number] 10mg QD Take 1 [facility] (ZETIA) 10 9-20 10-26 tablet (10 st mg tablet 00:00: 00:00 mg total) Ho spita 00 :00 by mouth l daily. ezetimibe 2021- No [id number] 10mg QD Take 1 [facility] (ZETIA) 10 9-20 10-26 tablet (10 st mg tablet 00:00: 00:00 mg total) Ho spita 00 :00 by mouth l daily. ezetimibe 2021- No [id number] 10mg QD Take 1 [facility] (ZETIA) 10 9-20 10-26 tablet (10 st mg tablet 00:00: 00:00 mg total) Ho spita 00 :00 by mouth l daily. ezetimibe 2021- No [id number] 10mg QD Take 1 [facility] (ZETIA) 10 9-20 10-26 tablet (10 st mg tablet 00:00: 00:00 mg total) Ho spita 00 :00 by mouth l daily. ezetimibe No [id number] 10mg QD Take 1 [facility] (ZETIA) 10 9-20 10-26 tablet (10 st mg tablet 00:00: 00:00 mg total) Ho spita 00 :00 by mouth l daily. ezetimibe 2021- No [id number] 10mg QD Take 1 [facility] (ZETIA) 10 9-20 -20 tablet (10 st mg tablet 00:00: 00:00 mg total) Ho spita 00 :00 by mouth l daily. ezetimibe 2021- No [id number] 10mg QD Take 1 [facility] (ZETIA) 10 9-20 -20 tablet (10 st mg tablet 00:00: 00:00 mg total) Ho spita 00 :00 by mouth l daily. ezetimibe 2021- No [id number] 10mg QD Take 1 [facility] (ZETIA) 10 9-20 -20 tablet (10 st mg tablet 00:00: 00:00 mg total) Ho spita 00 :00 by mouth l daily. ezetimibe 2021- No [id number] 10mg QD Take 1 [facility] (ZETIA) 10 9-20 09-20 tablet (10 st mg tablet 00:00: 00:00 mg total) Ho spita 00 :00 by mouth l daily. ezetimibe 2021- No [id number] 10mg QD Take 1 [facility] (ZETIA) 10 9-20 09-20 tablet (10 st mg tablet 00:00: 00:00 mg total) Ho spita 00 :00 by mouth l daily. ezetimibe 2021-0 2021- No [id number] 10mg QD Take 1 [facility] (ZETIA) 10 07-13-20 tablet (10 st mg tablet 00:00: 00:00 mg total) Ho spita 00 :00 by mouth l daily. ezetimibe 2021-0 2021- No [id number] 10mg QD Take 1 [facility] (ZETIA) 10 07-13-20 tablet (10 st mg tablet 00:00: 00:00 mg total) Ho spita 00 :00 by mouth l daily. sertraline 2021-0 Yes [id number] TAKE ONE [facility] (ZOLOFT) - TABLET BY st 100 MG 00:00: MOUTH [facility]ospita tablet 00 DAILY l sertraline 2021-0 Yes [id number] TAKE ONE [facility] (ZOLOFT) -[address] 100 MG 00:00: MOUTH [facility]ospita tablet 00 DAILY l sertraline 2021-0 Yes [id number] TAKE ONE [facility] (ZOLOFT) 9-[address] 100 MG 00:00: MOUTH [facility]ospita tablet 00 DAILY l sertraline 2021-0 Yes [id number] TAKE ONE [facility] (ZOLOFT) 9-[address] 100 MG 00:00: MOUTH [facility]ospita tablet 00 DAILY l sertraline 2021-0 Yes [id number] TAKE ONE [facility] (ZOLOFT) 9-[address] 100 MG 00:00: MOUTH [facility]ospita tablet 00 DAILY l sertraline 2021-0 3- No [id number] TAKE ONE [facility] (ZOLOFT) 06-29- TABLET BY st 100 MG 00:00: 00:00 MOUTH [facility]ospita tablet 00 :00 DAILY l sertraline 2021-0 3- No [id number] TAKE ONE [facility] (ZOLOFT) -03 25-[address] 100 MG 00:00: 00:00 MOUTH Hospita tablet 00 :00 DAILY l metoprolol 2021-0 2021- No 25mg Q.5D Take 25 mg [facility] tartrate 06-02 08-[address] (LOPRESSOR) 15:13: 00:00 (two) [facility]osp [facility] 25 mg 56 :00 times a l tablet day. metoprolol 2021- No Take by Met hodi strickland-hydrochl 8-10 08-[address] orothiaz 15:13: 00:00 Hospita 25-12.5 mg 56 :00 l tablet extended release 24 hr metoprolol 2021- No 25mg Q.5D Take 25 mg [facility] tartrate 8-10 08-[address] (LOPRESSOR) 15:13: 00:00 (two) [facility]osp [facility] 25 mg 56 :00 times a l tablet day. metoprolol 2021- No Take by Met hodi strickland-hydrochl 8-10 08-[address] orothiaz 15:13: 00:00 Hospita 25-12.5 mg 56 :00 l tablet extended release 24 hr metoprolol 2021- No 25mg Q.5D Take 25 mg [facility] tartrate 8-10 08-[address] (LOPRESSOR) 15:13: 00:00 (two) [facility]osp [facility] 25 mg 56 :00 times a l tablet day. metoprolol 2021- No Take by [facility] hodi strickland-hydrochl 8-10 08-[address] orothiaz [...] extended release 24 hr metoprolol 2021- No 25mg Q.5D Take 25 mg [facility] tartrate 06-[address] (LOPRESSOR) 15:13: 00:00 (two) Hosp su[facility]ail 25 mg 56 :00 times a l tablet day. metoprolol 2021- No Take by Met naif strickland-hydrochl 06-[address] orothiaz 15:13: 00:00 Hospita 25-12.5 mg 56 :00 l tablet extended release 24 hr metoprolol 2021- No [id number] 25mg QD Take 1 [facility] succinate 06-02-20 tablet (25 st XL 00:00: 00:00 mg total) Hospita (TOPROL-XL) 00 :00 by mouth l 25 mg 24 hr daily. tablet metoprolol 2021- No [id number] 25mg QD Take 1 [facility] succinate 06-02 tablet (25 st XL 00:00: 00:00 mg total) Hospita (TOPROL-XL) 00 :00 by mouth l 25 mg 24 hr daily. tablet metoprolol 2021- No [id number] 25mg QD Take 1 [facility] succinate 06-02 tablet (25 st XL 00:00: 00:00 mg total) [facility]ospita (TOPROL-XL) 00 :00 by mouth l 25 mg 24 hr daily. tablet metoprolol 2021- No [id number] 25mg QD Take 1 [facility] succinate 06-02 tablet (25 st XL 00:00: 00:00 mg total) [facility]ospita (TOPROL-XL) 00 :00 by mouth l 25 mg 24 hr daily. tablet metoprolol 2021- No [id number] 25mg QD Take 1 [facility] succinate 8-20 tablet (25 st XL 00:00: 00:00 mg total) [facility]ospita (TOPROL-XL) 00 :00 by mouth l 25 mg 24 hr daily. tablet metoprolol 2021- No [id number] 25mg QD Take 1 [facility] succinate 8-20 tablet (25 st XL 00:00: 00:00 mg total) [facility]ospita (TOPROL-XL) 00 :00 by mouth l 25 mg 24 hr daily. tablet metoprolol 2021-0 2022- No [id number] 25mg QD Take 1 [facility] succinate 06-02-20 tablet (25 st XL 00:00: 00:00 mg total) Hospita (TOPROL-XL) 00 :00 by mouth l 25 mg 24 hr daily. tablet keTOROlac 2022-0 2022- No 10mg Q6H Take 1 [facility]o di (TORadol) 05-26 tablet (10 st 10 mg 00:00: 04:59 mg total) Hospit a tablet 00 :00 by mouth l every 6 (six) hours as needed for moderate pain for up to 5 days. keTOROlac 2022-0 2022- No 10mg Q6H Take 1 [facility] di (TORadol) 05-26 tablet (10 st 10 mg 00:00: 04:59 mg total) Hospit a tablet 00 :00 by mouth l every 6 (six) hours as needed for moderate pain for up to 5 days. keTOROlac 2022-0 2022- No 10mg Q6H Take 1 [facility]o di (TORadol) 05-26 tablet (10 st 10 mg 00:00: 04:59 mg total) Hospit a tablet 00 :00 by mouth l every 6 (six) hours as needed for moderate pain for up to 5 days. keTOROlac 2022-0 2022- No 10mg Q6H Take 1 [facility]o di (TORadol) 05-26 tablet (10 st 10 mg 00:00: 04:59 mg total) Hospit a tablet 00 :00 by mouth l every 6 (six) hours as needed for moderate pain for up to 5 days. keTOROlac 2022-0 2022- No 10mg Q6H Take 1 [facility]o di (TORadol) 05-26- tablet (10 st 10 mg 00:00: 04:59 mg total) Hospit a tablet 00 :00 by mouth l every 6 (six) hours as needed for moderate pain for up to 5 days. keTOROlac 2022-0 2022- No 10mg Q6H Take 1 [facility] di (TORadol) 05-26- tablet (10 st 10 mg 00:00: 04:59 mg total) Hospit a tablet 00 :00 by mouth l every 6 (six) hours as needed for moderate pain for up to 5 days. albuterol 2021- No [id number] 2{puff} Q8H Inhale 2 [facility] (Ventolin 7-29 09-[address] HFA) 90 00:00: 00:00 every 8 Hospit a mcg/actuati 00 :00 (eight) l on inhaler hours as needed for wheezing. albuterol 2021- No [id number] 2{puff} Q8H Inhale 2 [facility] (Ventolin 7-29 09-[address] HFA) 90 00:00: 00:00 every 8 Hospit a mcg/actuati 00 :00 (eight) l on inhaler hours as needed for wheezing. albuterol 2021- No [id number] 2{puff} Q8H Inhale 2 [facility] (Ventolin 7-29 09-[address] HFA) 90 00:00: 00:00 every 8 Hospit a mcg/actuati 00 :00 (eight) l on inhaler hours as needed for wheezing. albuterol 2021- No [id number] 2{puff} Q8H Inhale 2 [facility] (Ventolin 7-29 09-[address] HFA) 90 00:00: 00:00 every 8 Hospit a mcg/actuati 00 :00 (eight) l on inhaler hours as needed for wheezing. albuterol 2021- No [id number] 2{puff} Q8H Inhale 2 [facility] (Ventolin 7-29 09-[address] HFA) 90 00:00: 00:00 every 8 Hospit a mcg/actuati 00 :00 (eight) l on inhaler hours as needed for wheezing. albuterol 2021- No [id number] 2{puff} Q8H Inhale 2 [facility] (Ventolin 7-29 09-[address] HFA) 90 00:00: 00:00 every 8 Hospit a mcg/actuati 00 :00 (eight) l on inhaler hours as needed for wheezing. albuterol 2021- No [id number] 2{puff} Q8H Inhale 2 [facility] (Ventolin 05-21 09-[address] HFA) 90 00:00: 00:00 every 8 Hospit a mcg/actuati 00 :00 (eight) l on inhaler hours as needed for wheezing. azithromyci No [id number] Take 2 [facility] n 05-[address] (Zithromax 00:00: 04:59 (500 mg Hos alicia Z-Richard) 250 00 :00 total) by l MG tablet mouth daily for 1 day, THEN 1 tablet (250 mg total) daily for 4 days. azithromyci No [id number] Take 2 [facility] n 05-[address] (Zithromax 00:00: 04:59 (500 mg Hos alicia Z-Richard) 250 00 :00 total) by l MG tablet mouth daily for 1 day, THEN 1 tablet (250 mg total) daily for 4 days. azithromyci No [id number] Take 2 [facility] n 05-[address] (Zithromax 00:00: 04:59 (500 mg Hos alicia Z-Richard) 250 00 :00 total) by l MG tablet mouth daily for 1 day, THEN 1 tablet (250 mg total) daily for 4 days. azithromyci [id number] Take 2 [facility] n 05-[address] (Zithromax 00:00: 04:59 (500 mg Hos alicia Z-Richard) 250 00 :00 total) by l MG tablet mouth daily for 1 day, THEN 1 tablet (250 mg total) daily for 4 days. azithromyci No [id number] Take 2 [facility] n 05-[address] (Zithromax 00:00: 04:59 (500 mg Hos alicia Z-Richard) 250 00 :00 total) by l MG tablet mouth daily for 1 day, THEN 1 tablet (250 mg total) daily for 4 days. azithromyci No [id number] Take 2 [facility] n 7-29 08-[address] (Zithromax 00:00: 04:59 (500 mg [...] EVERY l EVENING amoxicillin 2021- No 500mg Q.[id number] Take 500 [facility] (AMOXIL) 04-[id number] 500 MG 10:30: 00:00 3D mouth 3 Hospita capsule 59 :00 (three) l times a day. amoxicillin 2021- No 500mg Q.[id number] Take 500 [facility] (AMOXIL) 04-[id number] 500 MG 10:30: 00:00 3D mouth 3 Hospita capsule 59 :00 (three) l times a day. amoxicillin 2021- No 500mg Q.[id number] Take 500 [facility] (AMOXIL) 04-[id number] 500 MG 10:30: 00:00 3D mouth 3 Hospita capsule 59 :00 (three) l times a day. amoxicillin 2021- No 500mg Q.[id number] Take 500 [facility] (AMOXIL) 04-13- [id number] mg by st 500 MG 10:30: 00:00 3D mouth 3 Hospita capsule 59 :00 (three) l times a day. amoxicillin 2021- No 500mg Q.[id number] Take 500 [facility] (AMOXIL) 04-[id number] 500 MG 10:30: 00:00 3D mouth 3 Hospita capsule 59 :00 (three) l times a day. amoxicillin 2021- No 500mg Q.[id number] Take 500 [facility] (AMOXIL) 04-[id number] 500 MG 10:30: 00:00 3D mouth 3 Hospita capsule 59 :00 (three) l times a day. albuterol 2021- No 2{puff} Q4H Inhale 2 [facility] (PROAIR 6- 07-[address] HFA) 90 00:00: 04:59 every 4 Hospit a mcg/actuati 00 :00 (four) l on inhaler hours as needed for shortness of breath for up to 30 days. albuterol 2021- No 2{puff} Q4H Inhale 2 [facility] (PROAIR 6- 07-[address] HFA) 90 00:00: 04:59 [...] 2021- No TAKE ONE Met [facility]odi (DESYREL) 01-19- TABLET BY st 100 MG 00:00: 00:00 MOUTH Hospita tablet 00 :00 EVERY l EVENING traZODone 2021- No TAKE ONE Met [facility]odi (DESYREL) 01-19- TABLET BY st 100 MG 00:00: 00:00 [...] 2021-2021- No TAKE ONE Met hodi (DESYREL) 3-29 06-[address] 100 MG 00:00: 00:00 MOUTH [facility]ospita tablet 00 :00 EVERY l EVENING bempedoic 2021- 2022- No 180mg QD Take 180 Me thodi acid 3-17 03-[address] (Nexletol) 11:25: 00:00 mouth Hospi ta 180 mg 47 :00 every l tablet evening. bempedoic 2021- 2022- No 180mg QD Take 180 Me thodi acid 3-17 03-[address] (Nexletol) 11:25: 00:00 mouth Hospi ta 180 mg 47 :00 every l tablet evening. bempedoic 2021- 2022- No 180mg QD Take 180 Me thodi acid 3-17 03-[address] (Nexletol) 11:25: 00:00 mouth Hospi ta 180 mg 47 :00 every l tablet evening. bempedoic 2021- 2022- No 180mg QD Take 180 Me thodi acid 3-17 03-[address] (Nexletol) 11:25: 00:00 mouth Hospi ta 180 mg 47 :00 every l tablet evening. bempedoic 2021- 2022- No 180mg QD Take 180 Me thodi acid 3-17 03-[address] (Nexletol) 11:25: 00:00 mouth Hospi ta 180 mg 47 :00 every l tablet evening. ezetimibe-r 2021-0 2- No Metho di osuvastatin 3-07-13 st 10-10 mg 00:00: 00:00 Hospita tablet 00 :00 l ezetimibe-r 202-0 2022- No Metho di osuvastatin 3-10 07- st 10-10 mg 00:00: 00:00 Hospita tablet 00 :00 l ezetimibe-r 2022-0 2022- No Metho di osuvastatin 3-10 07- st 10-10 mg 00:00: 00:00 Hospita tablet 00 :00 l ezetimibe-r 202-0 2022- No Metho di osuvastatin 3-10 07- st 10-10 mg 00:00: 00:00 Hospita tablet 00 :00 l ezetimibe-r 202-0 2022- No Metho di osuvastatin 3-17 09-20 st 10-10 mg 00:00: 00:00 [facility] tablet 00 :00 l ezetimibe-r 2021-2021- No Metho di osuvastatin -07-13 st 10-10 mg 00:00: 00:00 [facility] tablet 00 :00 l ezetimibe-r 2021-2021- No Metho di osuvastatin 01-07 st 10-10 mg 00:00: 00:00 [facility] tablet 00 :00 l ezetimibe 2021- No [id number] 10mg QD Take 1 [facility] ([facility]) 10 01-07 tablet (10 st mg tablet 00:00: 00:00 mg total) [facility] 00 :00 by mouth l daily. ezetimibe No [id number] 10mg QD Take 1 [facility] ([facility]) 10 01-07 tablet (10 st mg tablet 00:00: 00:00 mg total) [facility] 00 :00 by mouth l daily. ezetimibe 2021- No [id number] 10mg QD Take 1 [facility] ([facility]) 10 01-07 tablet (10 st mg tablet 00:00: 00:00 mg total) [facility] 00 :00 by mouth l daily. ezetimibe No [id number] 10mg QD Take 1 [facility] ([facility]) 10 01-07 tablet (10 st mg tablet 00:00: 00:00 mg total) [facility] 00 :00 by mouth l daily. ezetimibe No [id number] 10mg QD Take 1 [facility] ([facility]) 10 01-07- tablet (10 st mg tablet 00:00: 00:00 mg total) [facility] 00 :00 by mouth l daily. ezetimibe 2021- No [id number] 10mg QD Take 1 [facility] (ZETIA) 10 01-07-04 tablet (10 st mg tablet 00:00: 00:00 mg total) [facility] 00 :00 by mouth l daily. albuterol 2021- No [id number] 2{puff} Q8H Inhale 2 [facility] (Ventolin 1-24 07-[address] HFA) 90 00:00: 00:00 every 8 Hospit a mcg/actuati 00 :00 (eight) l on inhaler hours as needed for wheezing. albuterol 2021- No [id number] 2{puff} Q8H Inhale 2 [facility] (Ventolin 1-24 07-[address] HFA) 90 00:00: 00:00 every 8 Hospit a mcg/actuati 00 :00 (eight) l on inhaler hours as needed for wheezing. albuterol 2021- No [id number] 2{puff} Q8H Inhale 2 [facility] (Ventolin 1-24 07-[address] HFA) 90 00:00: 00:00 every 8 Hospit a mcg/actuati 00 :00 (eight) l on inhaler hours as needed for wheezing. albuterol 2021- No [id number] 2{puff} Q8H Inhale 2 [facility] (Ventolin 1-24 07-[address] HFA) 90 00:00: 00:00 every 8 Hospit a mcg/actuati 00 :00 (eight) l on inhaler hours as needed for wheezing. albuterol 2021- No [id number] 2{puff} Q8H Inhale 2 [facility] (Ventolin 1-24 07-[address] HFA) 90 00:00: 00:00 every 8 Hospit a mcg/actuati 00 :00 (eight) l on inhaler hours as needed for wheezing. albuterol 2021- No [id number] 2{puff} Q8H Inhale 2 [facility] (Ventolin 1-24 07-[address] HFA) 90 00:00: 00:00 every 8 Hospit a mcg/actuati 00 :00 (eight) l on inhaler hours as needed for wheezing. albuterol 2021- No [id number] 2{puff} Q8H Inhale 2 [facility] (Ventolin 1-21 01-[address] HFA) 90 00:00: 00:00 every 8 Hospit a mcg/actuati 00 :00 (eight) l on inhaler hours as needed for wheezing. albuterol 2021- No [id number] 2{puff} Q8H Inhale 2 [facility] (Ventolin 1-21 01-[address] HFA) 90 00:00: 00:00 every 8 Hospit a mcg/actuati 00 :00 (eight) l on inhaler hours as needed for wheezing. albuterol 2- No [id number] 2{puff} Q8H Inhale 2 [facility] (Ventolin 1-21 01-[address] HFA) 90 00:00: 00:00 every 8 Hospit a mcg/actuati 00 :00 (eight) l on inhaler hours as needed for wheezing. albuterol 2021- No [id number] 2{puff} Q8H Inhale 2 [facility] (Ventolin 1-21 01-[address] HFA) 90 00:00: 00:00 every 8 Hospit a mcg/actuati 00 :00 (eight) l on inhaler hours as needed for wheezing. albuterol 2021- No [id number] 2{puff} Q8H Inhale 2 [facility] (Ventolin 1-21 01-[address] HFA) 90 00:00: 00:00 every 8 Hospit a mcg/actuati 00 :00 (eight) l on inhaler hours as needed for wheezing. metoprolol 2021- No [id number] 25mg QD Take 1 [facility] succinate 1-20 -21 tablet (25 st XL 00:00: 04:59 mg total) [facility]osp[facility] (TOPROL-XL) 00 :00 by mouth l 25 mg 24 hr daily for tablet 90 days. metoprolol 2021- No [id number] 25mg QD Take 1 [facility] succinate 1-20 -21 tablet (25 st XL 00:00: 04:59 mg total) [facility] (TOPROL-XL) 00 :00 by mouth l 25 mg 24 hr daily for tablet 90 days. metoprolol 2021- No [id number] 25mg QD Take 1 [facility] succinate 1-20 -21 tablet (25 st XL 00:00: 04:59 mg total) [facility] (TOPROL-XL) 00 :00 by mouth l 25 mg 24 hr daily for tablet 90 days. metoprolol 2021- No [id number] 25mg QD Take 1 [facility] succinate 1-20 -21 tablet (25 st XL 00:00: 04:59 mg total) [facility] (TOPROL-XL) 00 :00 by mouth l 25 mg 24 hr daily for tablet 90 days. metoprolol 2021- No [id number] 25mg QD Take 1 [facility] succinate 1-20 -21 tablet (25 st XL 00:00: 04:59 mg total) [facility] (TOPROL-XL) 00 :00 by mouth l 25 mg 24 hr daily for tablet 90 days. sodium,pota 2021- No Drink 1 [facility] th[facility] ssium,mag 1-13 12- bottle as st sulfates 00:00: 00:00 directed [facility] (Suprep 00 :00 for dose 1 l Bowel Prep and 1 Kit) bottle as 17.5-3.13-1 directed .6 gram for dose recon soln 2. sodium,pota 2021- No Drink 1 Me thodi ssium,mag -13 12-[address] sulfates 00:00: 00:00 directed [facility] (Suprep 00 :00 for dose 1 l Bowel Prep and 1 Kit) bottle as 17.5-3.13-1 directed .6 gram for dose recon soln 2. sodium,pota 2021- No Drink 1 Me thodi ssium,mag -12-[address] sulfates 00:00: 00:00 directed [facility] (Suprep 00 :00 for dose 1 l Bowel Prep and 1 Kit) bottle as 17.5-3.13-1 directed .6 gram for dose recon soln 2. sodium,pota 2021- No Drink 1 Me th[facility] ssium,mag 1-20 -[address] sulfates 00:00: 00:00 directed [facility] (Suprep 00 :00 for dose 1 l Bowel Prep and 1 Kit) bottle as 17.5-3.13-1 directed .6 gram for dose recon soln 2. sodium,pota 2021- No Drink 1 Me thodi ssium,mag 1-20 -[address] sulfates 00:00: 00:00 directed [facility] (Suprep 00 :00 for dose 1 l Bowel Prep and 1 Kit) bottle as 17.5-3.13-1 directed .6 gram for dose recon soln 2. memantine 2- No 10mg QD Take 10 mg [facility] (NAMENDA) 11-[address] 10 MG 11:25: 00:00 daily. [facility] tablet 18 :00 l memantine 2- No 10mg QD Take 10 mg [facility] (NAMENDA) 11-[address] 10 MG 11:25: 00:00 daily. [facility] tablet 18 :00 l memantine 2- No 10mg QD Take 10 mg [facility] (NAMENDA) 11-[address] 10 MG 11:25: 00:00 daily. [facility] tablet 18 :00 l memantine 2- No 10mg QD Take 10 mg [facility] (NAMENDA) 11-[address] 10 MG 11:25: 00:00 daily. [facility] tablet 18 :00 l memantine 2- No 10mg QD Take 10 mg [facility] (NAMENDA) 11-[address] 10 MG 11:25: 00:00 daily. [facility] tablet 18 :00 l sertraline 2- No [id number] 100mg QD Take 1 [facility] ([facility]OLOFT) 11-[address] 100 MG 00:00: 00:00 (100 mg [facility] tablet 00 :00 total) by l mouth daily. sertraline 2- No [id number] 100mg QD Take 1 [facility] ([facility]) 11-[address] 100 MG 00:00: 00:00 (100 mg [facility] tablet 00 :00 total) by l mouth daily. sertraline 2021-2- No [id number] 100mg QD Take 1 [facility] ([facility]) 11-[address] 100 MG 00:00: 00:00 (100 mg [facility] tablet 00 :00 total) by l mouth daily. sertraline 2021- No [id number] 100mg QD Take 1 [facility] ([facility]) 11-[address] 100 MG 00:00: 00:00 (100 mg [facility] tablet 00 :00 total) by l mouth daily. sertraline 2021- No [id number] 100mg QD Take 1 [facility] ([facility]) 11-[address] 100 MG 00:00: 00:00 (100 mg [facility] tablet 00 :00 total) by l mouth daily. sertraline 2021- No [id number] 100mg QD Take 1 [facility] ([facility]) 11-[address] 100 MG 00:00: 00:00 (100 mg [facility] tablet 00 :00 total) by l mouth daily. sertraline 2021- No [id number] 100mg QD Take 1 [facility] ([facility]) 11-[address] 100 MG 00:00: 00:00 (100 mg [facility] tablet 00 :00 total) by l mouth daily. sertraline No [id number] 100mg QD Take 1 [facility] ([facility]) 11-[address] 100 MG 00:00: 00:00 (100 mg [facility] tablet 00 :00 total) by l mouth daily. sertraline No [id number] 100mg QD Take 1 [facility] ([facility]) 11-[address] 100 MG 00:00: 00:00 (100 mg [facility] tablet 00 :00 total) by l mouth daily. sertraline 2021- No [id number] 100mg QD Take 1 [facility] ([facility]) 11-[address] 100 MG 00:00: 00:00 (100 mg [facility] tablet 00 :00 total) by l mouth daily. sertraline 2021- No [id number] 100mg QD Take 1 [facility] ([facility]) 11-[address] 100 MG 00:00: 00:00 (100 mg [facility] tablet 00 :00 total) by l mouth daily. sertraline 2021- No [id number] 100mg QD Take 1 [facility] ([facility]) 1-17 01-[address] 100 MG 00:00: 00:00 (100 mg [facility] tablet 00 :00 total) by l mouth daily. sertraline 2021- No [id number] 100mg QD Take 1 [facility] ([facility]) 11-[address] 100 MG 00:00: 00:00 (100 mg [facility] tablet 00 :00 total) by l mouth daily. sertraline 2021- No [id number] 100mg QD Take 1 [facility] ([facility]) 11-[address] 100 MG 00:00: 00:00 (100 mg [facility] tablet 00 :00 total) by l mouth daily. sertraline 2021- No [id number] 100mg QD Take 1 [facility] ([facility]) 11-[address] 100 MG 00:00: 00:00 (100 mg [facility] tablet 00 :00 total) by l mouth daily. sertraline 2021- No [id number] 100mg QD Take 1 [facility] ([facility]) 11-[address] 100 MG 00:00: 00:00 (100 mg [facility] tablet 00 :00 total) by l mouth daily. sertraline 2021- No [id number] 100mg QD Take 1 [facility] ([facility]) 11-[address] 100 MG 00:00: 00:00 (100 mg [facility] tablet 00 :00 total) by l mouth daily. traZODone 2020-10- No [id number] 100mg QD Take 1 [facility] (DESYREL) 12-[address] 100 MG 00:00: 04:59 (100 mg [facility]osp[facility] tablet 00 :00 total) by l mouth nightly for 90 days. traZODone 2020-10- No [id number] 100mg QD Take 1 [facility] (DESYREL) 12-[address] 100 MG 00:00: 04:59 (100 mg [facility] tablet 00 :00 total) by l mouth nightly for 90 days. traZODone 2020-10- No [id number] 100mg QD Take 1 [facility] (DESYREL) 12-[address] 100 MG 00:00: 04:59 (100 mg [facility] tablet 00 :00 total) by l mouth nightly for 90 days. traZODone 2020-10- No [id number] 100mg QD Take 1 [facility] (DESYREL) 12-[address] 100 MG 00:00: 04:59 (100 mg [facility] tablet 00 :00 total) by l mouth nightly for 90 days. traZODone 2020-10- No [id number] 100mg QD Take 1 [facility] (DESYREL) 12-[address] 100 MG 00:00: 04:59 (100 mg [facility]osp[facility] tablet 00 :00 total) by l mouth nightly for 90 days. bempedoic 2020-10- No [id number] 1{tbl} QD Take 1 [facility] acid 180 mg 12-[address] tablet 00:00: 05:59 mouth [facility]ospita 00 :00 daily for l 90 days. bempedoic 2020-10- No [id number] 1{tbl} QD Take 1 [facility] acid 180 mg 12-[address] tablet 00:00: 05:59 mouth [facility]ospita 00 :00 daily for l 90 days. bempedoic 2020-10- No [id number] 1{tbl} QD Take 1 [facility] acid 180 mg 12-[address] tablet 00:00: 05:59 mouth [facility]ospita 00 :00 daily for l 90 days. bempedoic 2020-10- No [id number] 1{tbl} QD Take 1 [facility] acid 180 mg 12-[address] tablet 00:00: 05:59 mouth [facility] 00 :00 daily for l 90 days. bempedoic 2020-10- No [id number] 1{tbl} QD Take 1 [facility] acid 180 mg 12-02- tablet by st tablet 00:00: 05:59 mouth [facility]ospita 00 :00 daily for l 90 days. sertraline 2020-10- No [id number] 75mg QD Take 1.5 [facility] ([facility]) 50 11-25-[address] MG tablet 00:00: 00:00 (75 mg Hospi ta 00 :00 total) by l mouth daily. sertraline 2020-10 No [id number] 75mg QD Take 1.5 [facility] ([facility]) 50 11-[address] MG tablet 00:00: 00:00 (75 mg Hospi ta 00 :00 total) by l mouth daily. sertraline 2020-10 No [id number] 75mg QD Take 1.5 [facility] ([facility]OFT) 50 11-[address] MG tablet 00:00: 00:00 (75 mg Hospi ta 00 :00 total) by l mouth daily. traZODone 2020-10- No [id number] 50mg QD Take 1 [facility] (DESYREL) 11-25 [...] Covid-19 Vaccine 2022-06-23 Completed Kaela liu - ([employer]), Mrna-lnp, 00:00:00 Exter nal [place] [facility], Pf, 30mcg/0.3ml,IM PFIZER COVID-19 MRNA 2022-06-23 Completed [facility] 00:[facility]:00 [facility] PFIZER COVID-19 MRNA 2022-06-23 Completed [facility] VACC[facility]ATION 00:00:00 Hospital PFIZER COVID-19 MRNA 2022-06-23 Completed [facility] VACCINATION 00:00:00 Hospital PFIZER COVID-19 MRNA 2022-06-23 Completed [facility] VACCINATION 00:00:00 Hospital PFIZER COVID-19 MRNA 2022-06-23 Completed [facility] VACCINATION 00:00:00 Hospital PFIZER COVID-19 MRNA 2022-06-23 Completed [facility] VACCINATION 00:00:00 Hospital PFIZER COVID-19 MRNA 2022-06-23 Completed [facility] VACCINATION 00:00:00 [facility] Influenza Virus 2022-06-01 Completed Kaela Smallwood ybold - Vaccine, 00:00:00 External Quadrivalent, High Dose, Age 65 And Up FLUZONE HIGH-DOSE PF 2022-06-01 Completed [facility] 00:00:00 Hospital FLUZONE HIGH-DOSE PF 2022-06-01 Completed [facility] 00:00:00 [facility] FLUZONE HIGH-DOSE PF 2022-06-01 Completed [facility] 00:00:00 Hospital FLUZONE HIGH-DOSE PF 2022-06-01 Completed [facility] 00:00:00 Hospital FLUZONE HIGH-DOSE PF 2022-06-01 Completed [facility] 00:00:00 Hospital FLUZONE HIGH-DOSE PF 2022-06-01 Completed [facility] 00:00:00 Hospital FLUZONE HIGH-DOSE PF 2022-06-01 Completed [facility] 00:00:00 Hospital Tdap- (Boostrix, 2022-02-05 Completed Kaela liu - Adacel) 00:00:00 External Tdap 2022-02-05 Completed [facility] Tdap 2022-02-05 [facility]pleted [facility] 00:00:00 [facility] Tdap 2022-02-05 Completed [facility] 00:00:00 [facility] Tdap 2022-02-05 Completed [facility] 00:00:00 [facility] Tdap 2022-02-05 Completed [facility] 00:00:00 [facility] Tdap 2022-02-05 Completed [facility] 00:00:00 [facility] Tdap 2022-02-05 Completed [facility] 00:00:00 [facility] Influenza Virus 2021-07-27 Completed Kaela wongold - Vaccine, 00:00:00 External Quadrivalent, High Dose, Age 65 And Up PFIZER COVID-19 MRNA 2021-07-27 Completed [facility] VACCINATION 00:00:00 [facility] FLUZONE HIGH-DOSE PF 2021-07-27 Completed [facility] 00:00:00 [facility] PFIZER COVID-19 MRNA 2021-07-27 Completed [facility] VACCINATION 00:00:00 [facility] FLUZONE HIGH-DOSE PF 2021-07-27 Completed [facility] 00:00:00 [facility] PFIZER COVID-19 MRNA 2021-07-27 Completed [facility] VACCINATION 00:00:00 [facility] FLUZONE HIGH-DOSE PF 2021-07-27 Completed [facility] 00:00:00 [facility] PFIZER COVID-19 MRNA 2021-07-27 Completed [facility] VACCINATION 00:00:00 [facility] FLUZONE HIGH-DOSE PF 2021-07-27 Completed [facility] 00:00:00 [facility] PFIZER COVID-19 MRNA 2021-07-27 Completed [facility] VACCINATION 00:00:00 [facility] FLUZONE HIGH-DOSE PF 2021-07-27 Completed [facility] 00:00:00 [facility] PFIZER COVID-19 MRNA 2021-07-27 Completed [facility] VACCINATION 00:00:00 [facility] FLUZONE HIGH-DOSE PF 2021-07-27 Completed [facility] 00:00:00 [facility] PFIZER COVID-19 MRNA 2021-07-27 Completed [facility] VACCINATION 00:00:00 [facility] FLUZONE HIGH-DOSE PF 2021-07-27 Completed [facility] 00:00:00 [facility] PFIZER COVID-19 MRNA 2021-01-05 Completed [facility] VACCINATION 00:00:00 [facility] PFIZER COVID-19 MRNA 2021-01-05 Completed [facility] VACCINATION 00:00:00 [facility] PFIZER COVID-19 MRNA 2021-01-05 Completed [facility] VACCINATION 00:00:00 [facility] PFIZER COVID-19 MRNA 2021-01-05 Completed [facility] VACCINATION 00:00:00 [facility] PFIZER COVID-19 MRNA 2021-01-05 Completed [facility] VACCINATION 00:00:00 [facility] PFIZER COVID-19 MRNA 2021-01-05 Completed [facility] VACCINATION 00:00:00 [facility] PFIZER COVID-19 MRNA 2021-01-05 Completed [facility] VACCINATION 00:00:00 [facility] PFIZER COVID-19 MRNA 2020-12-11 Completed [facility] VACCINATION 00:00:00 [facility] PFIZER COVID-19 MRNA 2020-12-11 Completed [facility] VACCINATION 00:00:00 [facility] PFIZER COVID-19 MRNA 2020-12-11 Completed [facility] VACCINATION 00:00:00 [facility] PFIZER COVID-19 MRNA 2020-12-11 Completed [facility] VACCINATION 00:00:00 [facility] PFIZER COVID-19 MRNA 2020-12-11 Completed [facility] VACCINATION 00:00:00 [facility] PFIZER COVID-19 MRNA 2020-12-11 Completed [facility] VACCINATION 00:00:00 [facility] PFIZER COVID-19 MRNA 2020-12-11 Completed [facility] VACCINATION 00:00:00 [facility] Pneumococcal 2020-10-07 Completed Kaela powell - Vaccine, Conjugate 00:00:00 [employer] al 13 Pneumococcal 2020-10-07 Completed [facility] Conjugate 13-Valent 00:00:00 [facility]osp [facility] Pneumococcal 2020-10-07 Completed [facility] Conjugate 13-Valent 00:00:00 Hospi [facility]a Pneumococcal 2020-10-07 Completed [facility] Conjugate 13-Valent 00:00:00 [facility] Pneumococcal 2020-10-07 Completed [facility] Conjugate 13-Valent 00:00:00 [facility]a Pneumococcal 2020-10-07 Completed [facility] Conjugate 13-Valent 00:00:00 [facility]pi [facility]a Pneumococcal 2020-10-07 Completed [facility] Conjugate 13-Valent 00:00:00 [facility] Pneumococcal 2020-10-07 Completed [facility] Conjugate 13-Valent 00:00:00 [facility]pi [facility] Influenza, 2020-08-12 Completed Kaela Alexander - Injectable, Mdck, 00:00:00 Externa l Preservative Free, Quadrivalt FLUCELVAX QUAD PF 2020-08-[address] 00:00:00 [facility] FLUCELVAX QUAD PF 2020-08-[address] 00[facility] Hospital FLUCELVAX QUAD PF 2020-08-[address] 00:00:00 Hospital FLUCELVAX QUAD PF 2020-08-[address] 00:00:00 Hospital FLUCELVAX QUAD PF 2020-08-[address] 00:00:00 Hospital FLUCELVAX QUAD PF 2020-08-[address] 00:00:00 Hospital FLUCELVAX QUAD PF 2020-08-[address] 00:00:00 [facility] Influenza Virus 2020-07-07 Completed Kaela wongold - Vaccine, 00:00:00 External Quadrivalent, High Dose, [...] Kaela arango - Vaccine, Split, up 00:00:00 [employer]ician al to age 4 FLUZONE QUAD 2019-07-18 Completed [facility] 00:00:00 [facility] FLUZONE QUAD 2019-07-18 Completed [facility] 00:00:00 Hospital FLUZONE QUAD 2019-07-18 Completed [facility] 00:00:00 Hospital FLUZONE QUAD 2019-07-18 Completed [facility] 00:00:00 Hospital FLUZONE QUAD 2019-07-18 Completed [facility] 00:00:00 Hospital FLUZONE QUAD 2019-07-18 Completed [facility] 00:00:00 Hospital FLUZONE QUAD 2019-07-18 Completed [facility] 00:00:00 [facility] Influenza Virus 2018-06-24 Completed Kaela wongold - Vaccine, Split, up 00:00:00 [employer] Technician al to age 4 FLUZONE QUAD 2018-06-24 Completed [facility] 00:00:00 Hospital FLUZONE QUAD 2018-06-24 Completed [facility] 00:00:00 Hospital FLUZONE QUAD 2018-06-24 Completed [facility] 00:00:00 Hospital FLUZONE QUAD 2018-06-24 Completed [facility] 00:00:00 Hospital FLUZONE QUAD 2018-06-24 Completed [facility] 00:00:00 Hospital FLUZONE QUAD 2018-06-24 Completed [facility] 00:00:00 Hospital FLUZONE QUAD 2018-06-24 Completed [facility] 00:00:00 [facility] Influenza Virus 2016-08-24 Completed Kaela arango - Vaccine, Unspecified 00:00:00 Exte rnal Formulation Influenza, 2016-08-24 Completed [facility] Unspecified 00:00:00 Hospital Influenza, 2016-08-24 Completed [facility] Unspecified 00:00:00 Hospital Influenza, 2016-08-24 Completed [facility] Unspecified 00:00:00 Hospital Influenza, 2016-08-24 Completed [facility] Unspecified 00:00:00 Hospital Influenza, 2016-08-24 Completed [facility] Unspecified 00:00:00 Hospital Influenza, 2016-08-24 Completed [facility] Unspecified 00:00:00 Hospital Influenza, 2016-08-24 Completed [facility] Unspecified 00:00:00 Hospital pneumococcal, 2015-08-24 Completed Kaela ribera - unspecified 00:00:00 External formulation Pneumococcal, 2015-08-24 Completed [facility] Unspecified 00:00:00 Hospital Pneumococcal, 2015-08-24 Completed [facility] Unspecified 00:00:00 Hospital Pneumococcal, 2015-08-24 Completed [facility] Unspecified 00:00:00 Hospital Pneumococcal, 2015-08-24 Completed [facility] Unspecified 00:00:00 Hospital Pneumococcal, 2015-08-24 Completed [facility] Unspecified 00:00:00 Hospital Pneumococcal, 2015-08-24 Completed [facility] Unspecified 00:00:00 Hospital Pneumococcal, 2015-08-24 Completed [facility] Unspecified 00:00:00 Hospital Vital Signs Vital Name Observation Time Observation Value Comments Source Systolic blood 2022-10-06 14:59:00 138 mm[Hg] Kaela Alexander - pressure External Diastolic blood 2022-10-06 14:59:00 67 mm[Hg] Ambreen Alexander - pressure External Heart rate 2022-10-06 14:59:00 59 /min Kaela S eybold - External Body temperature 2022-10-06 14:59:00 36.67 Tata Ara ey Seybold - External Respiratory rate 2022-10-06 14:59:00 14 /min Ara ey Seybold - External Body height 2022-10-06 14:59:00 167.6 cm Kaela S eybold - External Body weight 2022-10-06 14:59:00 61.961 kg Kaela S eybold - External BMI 2022-10-06 14:59:00 22.05 kg/m2 Kaela S eybold - External Oxygen saturation in 2022-10-06 14:59:00 99 /min Kaela Smallwoodybold - Arterial blood by External Pulse oximetry [...] External Diastolic blood 2022-09-28 15:12:00 60 mm[Hg] Minh y Seybold - pressure External Heart rate 2022-09-28 15:12:00 58 /min Kaela S eybold - External Systolic blood 2022-07-13 15:55:00 145 mm[Hg] [facility] pressure Diastolic blood 2022-07-13 15:55:00 80 mm[Hg] [facility] pressure Heart rate 2022-07-13 15:55:00 52 /min [facility] Body temperature 2022-07-13 15:55:00 36.28 T[facility] Respiratory rate 2022-07-13 15:55:00 20 /min [facility] Body height 2022-07-13 15:55:00 167.6 cm [facility] Body weight 2022-07-13 15:55:00 64.32 kg [facility] BMI 2022-07-13 15:55:00 22.89 kg/m2 [facility] Oxygen saturation in 2022-07-13 15:55:00 95 /min [facility] Arterial blood by Pulse oximetry Procedures Procedure Date / Time Performing Source Performed Clinician LIPID PANEL 2022-07-13 Janusz Hutson 16:20:00 [facility] CBC WITH PLATELET AND DIFFERENTIAL 2022-05-26 Derek Dee 22:17:00 [facility] COMPREHENSIVE METABOLIC PANEL 2022-05-26 Saul Dee [facility] 22:17:00 [facility] ESTIMATED GFR 2022-05-26 Saul Dee 22:17:00 [facility] CT RENAL STONE PROTOCOL 2022-05-26 Saul Dee 22:11:00 [facility] URINE CULTURE 2022-05-26 Saul Dee 22:06:00 [facility] URINALYSIS SCREEN AND MICROSCOPY, 2022-05-26 Saul Dee WITH REFLEX TO CULTURE 22:06:00 [facility] ECG ED PRELIMINARY INTERPRETATION 2022-04-13 Laury Milian 19:13:31 [facility] XR CHEST 2 VW 2022-04-13 Saul Dee 17:17:00 [facility] RESPIRATORY PATHOGEN PANEL WITH 2022-04-13 Saul Dee COVID-19 RT-PCR 16:53:00 [facility] COMPREHENSIVE METABOLIC PANEL 2022-04-13 Saul Dee [facility] 16:51:00 [facility] CBC WITH PLATELET AND DIFFERENTIAL 2022-04-13 Derek Dee 16:51:00 [facility] TROPONIN T 2022-04-13 Saul Dee 16:51:00 [facility] B NATRIURETIC PEPTIDE 2022-04-13 Saul Dee 16:51:00 [facility] ESTIMATED GFR 2022-04-13 Saul Dee 16:51:00 [facility] POC URINALYSIS DIPSTICK 2022-04-13 Cecily Love t 15:57:00 [facility] POCT RAPID STREP A 2022-04-13 Cecily Love 15:45:00 Hospital POCT INFLUENZA A/B 2022-04-13 Cecily Love 15:45:00 Hospital COVID-19 QUALITATIVE RT-PCR 2022-04-13 Cecily Love 15:42:00 Hospital SURGICAL PATHOLOGY REQUEST 2021-12-10 SheebaWilliam polanco [facility] 17:17:00 [facility] COLONOSCOPY 2021-12-10 William Gutiérrez [facility] 17:00:00 [facility] ESOPHAGOGASTRODUODENOSCOPY (EGD) [facility]10 [facility] 17:[facility]00 [facility] COVID-19 QUALITATIVE RT-PCR 2021-12-08 [facility] William Xavi odist 16:38:00 [facility] MRI LUMBAR SPINE WO CONTRAST 2021-11-30 Maria M Pickett 21:26:24 Hospital XR HIP 3-4 VIEWS BILATERAL 2021-11-30 Maria M Picketto dist 21:25:09 Hospital LIPID PANEL 2021-11-10 Janusz Hutson [facility] 16:11:00 [facility] MAMMO BREAST SCREEN TOMOSYNTHESIS 2021-11-10 Janusz Hutsonist BILATERAL 15:45:45 [facility] Plan of Care Planned Activity Planned Date Details Comments Source Future Scheduled 2023-06-01 [facility]atitis [facility] Test 06:39:49 screening Hospital (procedure) [code = 324863878] Future Scheduled 2023-06-01 65+ [facility]OCOCC[address] [facility] Test 06:39:49 VACCINE (2 - PPSV23 Hospital if available, else PCV20) [code = 65+ PNEUMOCOCCAL VACCINE (2 - PPSV23 if available, else PCV20)] Future Scheduled 2023-06-01 COVID-19 VACCINE (5 [facility] Test 06:39:49 - Pfizer series) Hospital [code = COVID-19 VACCINE (5 - Pfizer series)] Future Scheduled 2023-06-01 INFLUENZA VACCINE [facility] Test 06:39:49 [code = INFLUENZA Hospital VACCINE] Future Scheduled 2023-02-16 [facility] Test 05:18:27 screening Hospital (procedure) [code = 437933632] Future Scheduled 2023-02-16 65+ [facility]UMOCOCCAL [facility] [...] INFLUENZA Hospital VACCINE] Future Scheduled 2023-02-16 COLONOSCOPY [facility] Test 05:18:27 SCREENING [code = Hospital COLONOSCOPY SCREENING] Future Scheduled 2022-10-27 [facility] Test 16:51:52 screening Hospital (procedure) [code = 431693824] Future Scheduled 2022-10-27 65+ [facility]OCOCCAL [facility] Test 16:51:52 VACCINE (2 - PPSV23 Hospital if available, else PCV20) [code = 65+ PNEUMOCOCCAL VACCINE (2 - PPSV23 if available, else PCV20)] Future Scheduled 2022-10-27 COVID-19 VACCINE (5 [facility] Test 16:51:52 - Booster for Pfizer Hospita l series) [code = COVID-19 VACCINE (5 - Booster for Pfizer series)] Future Scheduled 2022-10-27 [facility] 16:51:52 SCREENING [code = Hospital COLONOSCOPY SCREENING] Future Scheduled 2022-10-27 Hepatitis C [facility] 16:51:52 screening Hospital (procedure) [code = [id number]] Future Scheduled 2022-10-27 65+ [facility] [facility] Test 16:51:52 VACCINE (2 - PPSV23 Hospital if available, else PCV20) [code = 65+ PNEUMOCOCCAL VACCINE (2 - PPSV23 if available, else PCV20)] Future Scheduled 2022-10-27 COVID-19 VACCINE (5 [facility] Test 16:51:52 - Booster for Pfizer Hospita l series) [code = COVID-19 VACCINE (5 - Booster for Pfizer series)] Future Scheduled 2022-10-27 [facility] 16:51:52 SCREENING [code = Hospital COLONOSCOPY SCREENING] Future Scheduled 2022-10-27 Hepatitis C [facility] 16:51:52 screening Hospital (procedure) [code = 768096926] Future Scheduled 2022-10-27 65+ [facility]OC[address] [facility] Test 16:51:52 VACCINE (2 - PPSV23 Hospital if available, else PCV20) [code = 65+ PNEUMOCOCCAL VACCINE (2 - PPSV23 if available, else PCV20)] Future Scheduled 2022-10-27 COVID-19 VACCINE (5 [facility] Test 16:51:52 - Booster for Pfizer Hospita l series) [code = COVID-19 VACCINE (5 - Booster for Pfizer series)] Future Scheduled 2022-10-27 [facility] 16:51:52 SCREENING [code = Hospital COLONOSCOPY SCREENING] Future Scheduled 2022-10-27 Hepatitis C [facility] 16:51:52 screening Hospital (procedure) [code = 940182708] Future Scheduled 2022-10-27 65+ [facility]OC[address] [facility] Test 16:51:52 VACCINE (2 - PPSV23 Hospital if available, else PCV20) [code = 65+ PNEUMOCOCCAL VACCINE (2 - PPSV23 if available, else PCV20)] Future Scheduled 2022-10-27 COVID-19 VACCINE (5 [facility] Test 16:51:52 - Booster for Pfizer Hospita l series) [code = COVID-19 VACCINE (5 - Booster for Pfizer series)] Future Scheduled 2022-10-27 [facility]COPY [facility] 16:51:52 SCREENING [code = Hospital COLONOSCOPY SCREENING] Future Scheduled 2022-10-04 Hepatitis C [facility] 08:57:38 screening Hospital (procedure) [code = 491722975] Future Scheduled 2022-10-04 65+ [facility]OC[address] [facility] Test 08:57:38 VACCINE (2 - PPSV23 Hospital if available, else PCV20) [code = 65+ PNEUMOCOCCAL VACCINE (2 - PPSV23 if available, else PCV20)] Future Scheduled 2022-10-04 COVID-19 VACCINE (5 [facility] Test 08:57:38 - Booster for Pfizer Hospita l series) [code = COVID-19 VACCINE (5 - Booster for Pfizer series)] Future Scheduled 2022-10-04 [facility]COPY [facility] 08:57:38 SCREENING [code = Hospital COLONOSCOPY SCREENING] Future Scheduled 2022-10-04 HEPATITIS B VACCINES Postponed from [facility] Test 08:57:38 (1 of 3 - 3-dose 1946 (Not Hospital series) [code = Indicated) HEPATITIS B VACCINES (1 of 3 - 3-dose series)] Encounters Start End Encounter Admission Attending Care Care Encounter Source Date/Time Date/Time Type Type Clinicians Facility Department ID 2023-05-13 2023-05-13 Refill Ferdousi, 1.2.840.1 [id number] 2099 [id number] Methodi 00:00:00 00:00:00 Janusz George 32506.1.1 621 s t 3.430.2.7 Hospit a .3.344554 l .8 2023-03-18 2023-03-18 Telephone Solo 1.2.840.1 [id number] Methodi 00:00:00 00:00:[address] 3.430.2.7 Hospit a .3.953136 l .8 2023-03-17 2023-03-17 Refill Ferdousi, 1.2.840.1 [id number] 2099 [id number] Methodi 00:00:00 00:00:00 Gul E Rukh 25727.1.1 103 s t 3.430.2.7 Hospit a .3.356243 l .8 2022-12-17 2022-12-17 Refill Ferdousi, 1.2.840.1 [id number] 2099 [id number] Methodi 00:00:00 00:00:00 Gul E Rukh 78097.1.1 695 s t 3.430.2.7 Hospit a .3.990429 l .8 2022-12-17 2022-12-17 Refill Ferdousi, 1.2.840.1 [id number] 2100 [id number] Methodi 00:00:00 00:00:00 Gul E Rukh 81861.1.1 695 s t 3.430.2.7 Hospit a .3.295268 l .8 2022-10-14 2022-10-14 Outpatient KAELA SORTO [id number] Kaela 00:00:00 00:00:00 ELIZABETH paiz 2022-10-08 2022-10-08 Outpatient KAELA MARTINEZ [id number] Kaela 00:00:00 00:00:00 JIM Seybol d 2022-10-06 2022-10-06 Outpatient KAELA MARTINEZ [id number] Kaela 09:30:00 09:30:00 JIM Seybol d 2022-10-04 2022-10-04 Outpatient KAELA MARTINEZ [id number] Kaela 09:45:00 09:45:00 JIM Seybol d 2022-10-04 2022-10-04 Outpatient KAELA MARTINEZ [id number] Kaela 00:00:00 00:00:00 JIM Seybol d 2022-10-03 2022-10-03 Outpatient KAELA NAVARRO [id number] Kaela 00:00:00 00:00:00 LIZ Seybo ld 2022-09-28 2022-09-28 Outpatient LAB90 KAELA KRAMER [id number] Kaela 10:45:00 10:45:00 Seybol d 2022-09-28 2022-09-28 Outpatient KAELA MARTINEZ [id number] Kaela 09:45:00 09:45:00 JIM Seybol d 2022-08-18 2022-08-18 Refill Jesusdoantoine, 1.2.840.1 [id number] 2100 [id number] Methodi 00:00:00 00:00:00 Gul E Ariel 54188.1.1 738 s t 3.430.2.7 Hospit a .3.322903 l .8 2022-08-18 2022-08-18 Refill Ferdousi, 1.2.840.1 [id number] 2100 [id number] Methodi 00:00:00 00:00:00 Gul E Rukh 47526.1.1 738 s t 3.430.2.7 Hospit a .3.431261 l .8 2022-07-14 2022-07-14 Refill Solo, 1.2.840.1 [id number] 2099 [id number] Methodi 00:00:00 00:00:00 Aguilar [address].1.[address] 3.430.2.7 Hospit a .3.133097 l .8 2022-07-14 2022-07-14 Refill Solo, 1.2.840.1 [id number] 2099 [id number] Methodi 00:00:00 00:00:[address] 3.430.2.7 Hospit a .3.392050 l .8 2022-07-13 2022-07-13 Office Ferantoine, 1.2.840.1 [id number] Methodi 11:00:00 11:25:07 Visit Janusz George 22048.1.1 624 s t 3.430.2.7 Hospit a .3.351607 l .8 2022-07-13 2022-07-13 Office Jesusantoine, 1.2.840.1 [id number] Methodi 11:00:00 11:25:07 Visit Janusz George 04010.1.1 624 s t 3.430.2.7 Hospit a .3.466051 l .8 2022-07-13 2022-07-13 Travel 1.2.840.1 1.2.370.777 9104 032281 Methodi 00:00:00 00:00:[address] 3.430.2.7 0.2.7.3.698 Ho spita .3.841457 084.8 l .8 2022-07-13 2022-07-13 Travel 1.2.840.1 1.2.713.803 2858 513643 Methodi 00:00:00 00:00:[address] 3.430.2.7 0.2.7.3.698 Ho spita .3.403425 084.8 l .8 2022-06-29 2022-06-29 Refill Ginny, 1.2.840.1 [id number] 2099 [id number] Methodi 00:00:00 00:00:00 Janusz George 45420.1.1 787 s t 3.430.2.7 Hospit a .3.661208 l .8 2022-06-29 2022-06-29 Refill Ferdousi, 1.2.840.1 [id number] 2099 [id number] Methodi 00:00:00 00:00:00 Gul E Rukh 86479.1.1 787 s t 3.430.2.7 Hospit a .3.537861 l .8 2022-06-02 2022-06-02 Telephone Ferdousi, 1.2.840.1 [id number] Methodi 00:00:00 00:00:00 Gul E Rukh 93925.1.1 787 s t 3.430.2.7 Hospit a .3.717664 l .8 2022-06-01 2022-06-01 Refill Ferdousi, 1.2.840.1 [id number] 2099 [id number] Methodi 00:00:00 00:00:00 Gul E Rukh 36656.1.1 693 s t 3.430.2.7 Hospit a .3.060859 l .8 2022-05-26 2022-05-26 Emergency Rukhsana, 1.2.840.1 [id number] 909 [id number] Methodi 16:55:00 19:04:[address] Go 3.430.2.7 Hospit a .3.733177 l .8 2022-05-26 2022-05-26 Office Love, 1.2.840.1 [id number] 453142 0810 Methodi 16:15:00 16:44:42 Visit Cecily 71701.1.[address] 3.430.2.7 Hospit a .3.075396 l .8 2022-05-26 2022-05-26 Refill Ferdoantoine, 1.2.840.1 [id number] 2099 [id number] Methodi 00:00:00 00:00:00 Gul E Rukh 59482.1.1 751 s t 3.430.2.7 Hospit a .3.809097 l .8 2022-05-25 2022-05-25 Travel 1.2.840.1 1.2.229.481 8067 562741 Methodi 00:00:00 00:00:[address] 3.430.2.7 0.2.7.3.698 Ho spita .3.328975 084.8 l .8 2022-05-21 2022-05-21 Office Love, 1.2.840.1 [id number] 473526 1364 Methodi 09:15:00 09:53:34 Visit Cecily 62052.1.[address] 3.430.2.7 Hospit a .3.648988 l .8 2022-05-20 2022-05-20 Travel 1.2.840.1 1.2.755.160 5620 407016 Methodi 00:00:00 00:00:[address] 3.430.2.7 0.2.7.3.698 Ho spita .3.047462 084.8 l .8 2022-05-10 2022-05-10 Outpatient [facility] PDPFFES [facility] 00:00:00 00:00:00 [id number] 8 2022-04-28 2022-04-28 Telephone Ginny, 1.2.840.1 [id number] Methodi 00:00:00 00:00:00 Gul E Ariel 72062.1.1 639 s t 3.430.2.7 Hospit a .3.023898 l .8 2022-04-16 2022-04-16 Refill Ginny, 1.2.840.1 [id number] 2099 [id number] Methodi 00:00:00 00:00:00 Gul E Rukh 67896.1.1 136 s t 3.430.2.7 Hospit a .3.090401 l .8 2022-04-13 2022-04-13 Emergency Wingkun, 1.2.840.1 [id number] 349 [id number] Methodi 12:02:00 16:59:[address] Go 3.430.2.7 Hospit a .3.144368 l .8 2022-04-13 2022-04-13 Office Parth, 1.2.840.1 [id number] 204052 8968 Methodi 10:15:00 11:28:10 Visit Cecily 63392.1.[address] 3.430.2.7 Hospit a .3.859351 l .8 2022-04-13 2022-04-13 Documentat Love, 1.2.840.1 [id number] 758 6004022 Methodi 00:00:00 00:00:00 ion Cecily 36187.1.[address] 3.430.2.7 Hospit a .3.291163 l .8 2022-04-12 2022-04-12 Travel 1.2.840.1 1.2.151.751 5380 487791 Methodi 00:00:00 00:00:[address] 3.430.2.7 0.2.7.3.698 Ho spita .3.756763 084.8 l .8 2022-01-16 2022-01-16 Refill Ginny, 1.2.840.1 [id number] 2099 [id number] Methodi 00:00:00 00:00:00 Janusz George 21691.1.1 255 s t 3.430.2.7 Hospit a .3.591680 l .8 2022-01-07 2022-01-07 Office Jesusantoine, 1.2.840.1 [id number] 2099436 Methodi 10:45:00 11:38:56 Visit Janusz George 55778.1.1 295 s t 3.430.2.7 Hospit a .3.220142 l .8 2022-01-07 2022-01-07 Travel 1.2.840.1 1.2.272.950 1872 637294 Methodi 00:00:00 00:00:[address] 3.430.2.7 0.2.7.3.698 Ho spita .3.457527 084.8 l .8 2021-12-15 2021-12-15 Travel 1.2.840.1 1.2.342.132 9759 692089 Methodi 00:00:00 00:00:[address] 3.430.2.7 0.2.7.3.698 Ho spita .3.237770 084.8 l .8 2021-12-10 2021-12-10 [facility], 1.2.840.1 [id number] 21 [id number] Methodi 09:39:00 12:14:00 Encounter Zeid Faeq 80724.1.[address] 3.430.2.7 Hospit a .3.042475 l .8 2021-12-10 2021-12-10 Surgery [facility], 1.2.840.1 [id number] 507 [id number] Methodi 11:15:00 12:00:[address] 3.430.2.7 Hospit a .3.640583 l .8 2021-12-10 2021-12-10 Anesthesia Bertin Arias 1.2.840.1 [id number] 2099 [id number] Methodi 11:01:00 11:31:00 Event Bhargavi Angelia 76061.1.1 142 s t 3.430.2.7 Hospit a .3.418230 l .8 2021-12-10 2021-12-10 Travel 1.2.840.1 1.2.165.669 1790 872215 Methodi 00:00:00 00:00:[address] 3.430.2.7 0.2.7.3.698 Ho spita .3.688149 084.8 l .8 2021-12-08 2021-12-08 [facility] 2100 [id number] [place] 00:00:00 00:00:00 ZEID [address] 2021-12-02 2021-12-02 Telephone Piyush, 1.2.840.1 [id number] 2099 140699 Methodi 00:00:00 00:00:00 Maria M [address]754.1.[address] 3.430.2.7 Hospit a .3.383052 l .8 2021-12-02 2021-12-02 Telephone Piyush, 1.2.840.1 [id number] 2099 825790 Methodi 00:00:00 00:00:00 Maria M [address]334.1.[address] 3.430.2.7 Hospit a .3.140692 l .8 2021-11-30 2021-11-30 [facility] Lilliana Giron 1.2.840.1 [id number] 2 [id number] Methodi 13:56:10 23:59:[address] 3.430.2.7 Hospit a .3.190073 l .8 2021-11-30 2021-11-30 [facility] Lilliana Giron 1.2.840.1 [id number] 2 [id number] Methodi 13:54:50 13:55:[address] 3.430.2.7 Hospit a .3.010876 l .8 2021-11-17 2021-11-17 Office Piyush, 1.2.840.1 [id number] 796842 1183 Methodi 13:00:00 13:42:20 Visit Maria M 44464.1.[address] 3.430.2.7 Hospit a .3.706548 l .8 2021-11-17 2021-11-17 Travel 1.2.840.1 1.2.984.278 0951 972952 Methodi 00:00:00 00:00:[address] 3.430.2.7 0.2.7.3.698 Ho spita .3.913368 084.8 l .8 2021-11-16 2021-11-16 Telephone Selina, 1.2.840.1 [id number] [id number] Methodi 00:00:00 00:00:[address] 3.430.2.7 Hospit a .3.065458 l .8 2021-11-16 2021-11-16 Telephone Ginny, 1.2.840.1 [id number] 21 [id number] Methodi 00:00:00 00:00:00 Abdelrahmanl Colt George 26314.1.1 372 s t 3.430.2.7 Hospit a .3.231597 l .8 2021-11-16 2021-11-16 Telephone Ginny, 1.2.840.1 [id number] 21 [id number] Methodi 00:00:00 00:00:00 Abdelrahmanl Colt George 27540.1.1 489 s t 3.430.2.7 Hospit a .3.912706 l .8 2021-11-12 2021-11-12 Office Ginny, 1.2.840.1 [id number] 2100 [id number] Methodi 10:30:00 12:12:38 Visit Janusz George 16699.1.1 714 s t 3.430.2.7 Hospit a .3.638415 l .8 2021-11-12 2021-11-12 Orders Sandhya, 1.2.840.1 [id number] 50482 69149 Methodi 00:00:00 00:00:00 Only Lm 80808.1.[address] 3.430.2.7 Hospit a .3.582131 l .8 2021-11-12 2021-11-12 Travel 1.2.840.1 1.2.207.931 9284 987797 Methodi 00:00:00 00:00:[address] 3.430.2.7 0.2.7.3.698 Ho spita .3.704643 084.8 l .8 2021-11-11 2021-11-11 Office Marla, 1.2.840.1 [id number] 874 [id number] Methodi 11:30:00 12:15:40 Visit Zebebeto Schaffer 29143.1.[address] 3.430.2.7 Hospit a .3.234496 l .8 2021-11-10 2021-11-10 [facility], 1.2.840.1 [id number] 450 [id number] Methodi 08:56:13 23:59:00 Encounter Janusz George 41916.1.[address] 3.430.2.7 Hospit a .3.352616 l .8 2021-11-10 2021-11-10 Travel 1.2.840.1 1.2.735.306 2381 498679 Methodi 00:00:00 00:00:[address] 3.430.2.7 0.2.7.3.698 Ho spita .3.934835 084.8 l .8 2021-11-09 2021-11-09 [facility], 1.2.840.1 [id number] 21 [id number] Methodi 00:00:00 00:00:00 Janusz George 43636.1.1 011 s t 3.430.2.7 Hospit a .3.620105 l .8 2021-11-09 2021-11-09 Refill Reyna, 1.2.840.1 [id number] 2100 197736 Methodi 00:00:00 00:00:[address] 3.430.2.7 Hospit a .3.065534 l .8 2021-11-09 2021-11-09 Refill Reyna, 1.2.840.1 [id number] 2100 870432 Methodi 00:00:00 00:00:[address] 3.430.2.7 Hospit a .3.284473 l .8 2021-11-03 2021-11-03 Telephone [facility], 1.2.840.1 [id number] 21 [id number] Methodi 00:00:00 00:00:00 Janusz George 55706.1.1 929 s t 3.430.2.7 Hospit a .3.033921 l .8 2021-11-03 2021-11-03 Adriano Perez, 1.2.840.1 [id number] 004370 4305 Methodi 00:00:00 00:00:00 Only Rachel Paiz 43406.1.[address] 3.430.2.7 Hospit a .3.484582 l .8 2021-10-28 2021-10-28 Telephone Bowman, 1.2.840.1 [id number] 2099 977153 Methodi 00:00:00 00:00:[address] 3.430.2.7 Hospit a .3.113110 l .8 2021-10-21 2021-10-21 Travel 1.2.840.1 1.2.672.460 0720 157819 Methodi 00:00:00 00:00:[address] 3.430.2.7 0.2.7.3.698 Ho spita .3.766046 084.8 l .8 2021-10-15 2021-10-15 Refill Ginny, 1.2.840.1 [id number] 2099 999912 Methodi 00:00:00 00:00:00 Janusz George 45760.1.1 219 s t 3.430.2.7 Hospit a .3.456932 l .8 2021-10-14 2021-10-14 Refill Saurav, 1.2.840.1 [id number] 8164 Methodi 00:00:00 00:00:[address] 3.430.2.7 Hospit a .3.911731 l .8 2021-10-05 2021-10-05 Travel 1.2.840.1 1.2.066.131 5590 917239 Methodi 00:00:00 00:00:[address] 3.430.2.7 0.2.7.3.698 Ho spita .3.546791 084.8 l .8 2021-10-01 2021-10-01 Delia HUTSON [facility] 80154 13442 [place] 00:00:00 00:00:00 GUL [address] 2021-09-24 2021-09-24 Outpatient [facility] [id number] [place] 00:00:00 00:00:[address] 2021-08-19 2021-08-19 Outpatient GIRON, LILLIANA [facility] 886 [id number] [place] 00:00:00 00:00:00 920 Method i 2021-08-17 2021-08-17 Outpatient FERDOUSI, [facility] 17419 23965 [place] 00:00:00 00:00:00 GUL 232 Method i 2021-07-23 2021-07-23 Outpatient GIRON, LILLIANA [facility] 640 [id number] [place] 00:00:00 00:00:00 156 Method i 2021-07-15 2021-07-15 Outpatient MCARTHUR, [facility] [id number] 766 [place] 00:00:00 00:00:00 NAA 002 Method i 2021-07-07 2021-07-07 Outpatient GIRON, LILLIANA [facility] 889 [id number] [place] 00:00:00 00:00:[address] 2021-07-07 2021-07-07 Outpatient GIRON, LILLIANA [facility] 846 [id number] [place] 00:00:00 00:00:00 723 Method i 2021-06-30 2021-06-30 Outpatient GIRON, LILLIANA [facility] 801 [id number] [place] 00:00:00 00:00:00 422 Method i 2021-06-30 2021-06-30 Outpatient GIRON, LILLIANA [facility] 338 [id number] [place] 00:00:00 00:00:00 145 Method i 2021-01-09 2021-01-09 Emergency HOLLAND, [facility] 606 [id number] 576 [place] 00:00:00 00:00:00 PEDRO PABLO 055 Method i 2021-01-05 2021-01-06 Outpatient ROBBEN, [facility] [id number] [place] 00:00:00 00:00:00 JESSICA 095 Me thodi 2020-12-11 2020-12-11 Outpatient [facility] [id number] 145 [place] 00:00:00 00:00:00 858 Method i 2020-10-20 2020-10-20 Outpatient SALVATO, [facility] [id number] 5414 [place] 00:00:00 00:00:00 OLGA LIDIA [address] 2020-10-20 2020-10-20 Outpatient LINDA, [facility] [id number] 9439 [place] 00:00:00 00:00:00 OLGA LIDIA [address] 2020-04-16 2020-04-16 Outpatient LINDA HAMEED [facility] 2099 [id number] [place] 00:00:00 00:00:[address] 2020-04-16 2020-04-16 Outpatient LINDA HAMEED [facility] 2099 [id number] [place] 00:00:00 00:00:[address] Results Test Description Test Time Test Comments Results Result Comments Source Lipid panel 2022-07-14 06:08:00 Test Item Value Reference Range Interpretation Comme nts Cholesterol (test code = 181 mg/dL 959-648 5768-3) Triglycerides (test code = 86 mg/dL 0-149 2571-8) HDL cholesterol (test code 55 mg/dL See_Comment [Automated message] = 2085-06) The system [employer] generated this result transmitted ref erence range: >=39. Th e reference range was not used to interpr et this result as normal/abnormal . VLDL cholesterol cee (test 16 mg/dL 5-40 code = 41316-0) LDL Chol Calc (NIH) (test 110 mg/dL 0-99 H code = 00305-6) Non-HDL cholesterol (test 126 mg/dL 0-129 code = 38719-6) ELLEN (test code = ELLEN) Performed at: [address] [place] [address] [id number] Director: Sergei Marc MD, Phone: [phone] Lab Interpretation (test Abnormal code = 67948-1) [id number] Test Item Value Reference Range Interpretation [...] cee 16 mg/dL 5-40 (test code = 67639-2) LDL Chol Calc (NIH) 110 mg/dL 0-99 H (test code = 02669-0) Non-HDL cholesterol 126 mg/dL 0-129 (test code = 05607-1) ELLEN (test code = ELLEN) Performed at: [address] [place] [address] [id number] Director: Sergei Marc MD, Phone: [phone] Lab Interpretation Abnormal (test code = 46704-7) [facility] [id number] 06:08:00 Test Item Value Reference Range Interpretation [...] cee 16 mg/dL 5-40 (test code = 38736-8) LDL Chol Calc (NIH) 110 mg/dL 0-99 H (test code = 99184-8) Non-HDL cholesterol 126 mg/dL 0-129 (test code = 14132-9) ELLEN (test code = ELLEN) Performed at: [address] [place] [address] [id number] Director: Sergei Marc MD, Phone: [phone] Lab Interpretation Abnormal (test code = 62484-8) [facility] [id number] 06:08:00 Test Item Value Reference Range Interpretation [...] cee 16 mg/dL 5-40 (test code = 36087-3) LDL Chol Calc (NIH) 110 mg/dL 0-99 H (test code = 22861-8) Non-HDL cholesterol 126 mg/dL 0-129 (test code = 10074-1) ELLEN (test code = ELLEN) Performed at: [address] [place] [address] [id number] Director: Sergei Marc MD, Phone: [phone] Lab Interpretation Abnormal (test code = 75514-4) [facility] [id number] 06:08:00 Test Item Value Reference Range Interpretation [...] cee 16 mg/dL 5-40 (test code = 42871-3) LDL Chol Calc (NIH) 110 mg/dL 0-99 H (test code = 45856-6) Non-HDL cholesterol 126 mg/dL 0-129 (test code = 09117-7) ELLEN (test code = ELLEN) Performed at: [address] [place] [address] [id number] Director: Sergei Marc MD, Phone: [phone] Lab Interpretation Abnormal (test code = 65506-3) [facility]2022-09-21 06:08:00 Test Item Value Reference Range Interpretation Comments Cholesterol (test code = 181 mg/dL 739-083 8170-3) Triglycerides (test code 86 mg/dL 0-149 = 2571-8) HDL cholesterol (test 55 mg/dL >=39 code = 2085-9) VLDL cholesterol cee 16 mg/dL 5-40 (test code = 58164-8) LDL Chol Calc (NIH) (test 110 mg/dL 0-99 H code = 19562-4) Non-HDL cholesterol (test 126 mg/dL 0-129 code = 10526-3) ELLEN (test code = ELLEN) Performed at: [address] [place] [address] [id number] Director: Sergei Marc MD, Phone: [phone] Lab Interpretation (test Abnormal code = 69609-9) [id number]:00 Test Item Value Reference Range Interpretation Comments Cholesterol (test 181 mg/dL 100-199 code = 2093-3) Triglycerides (test 86 mg/dL 0-149 code = 2571-8) HDL cholesterol (test 55 mg/dL See_Comment [Auto mated code = 2085-9) message] The system which generated this result transmitted reference range : >=39. The reference range was not used to interpret this result as normal/abnormal . VLDL cholesterol cee 16 mg/dL 5-40 (test code = 06592-7) LDL Chol Calc ([facility] [place]) 110 mg/dL 0-99 H (test code = 73389-7) Non-HDL cholesterol 126 mg/dL 0-129 (test code = 67481-7) ELLEN (test code = ELLEN) Performed at: [facility] [id number] Director: Sergei Marc MD, Phone: [phone] Lab Interpretation Abnormal (test code = 13654-0) [facility] [id number] 22:37:00 Test Item Value Reference Range Interpretation Comments Urine culture (test SEE COMMENT Bacteriu yobany screen code = 9830117) negative. [facility] [id number] 22:37:00 Test Item Value Reference Range Interpretation Comments Urine culture (test SEE COMMENT Bacteriu yobany screen code = 7500310) negative. [facility] [id number] 22:37:00 Test Item Value Reference Range Interpretation Comments Urine culture (test SEE COMMENT Bacteriu yobany screen code = 5832165) negative. [facility] [id number] 22:37:00 Test Item Value Reference Range Interpretation Comments Urine culture (test SEE COMMENT Bacteriu yobany screen code = 6524368) negative. [facility] [id number] 22:37:00 Test Item Value Reference Range Interpretation Comments Urine culture (test SEE COMMENT Bacteriu yobany screen code = 7562995) negative. [facility]2022-08-03 22:37:00 Test Item Value Reference Range Interpretation Comments Urine culture (test SEE COMMENT Bacteriu yobany screen code = 6065152) negative. [facility] [Presence] in Respiratory specimen by NALINI with probe [id number] 19:05:16 Test Item Value Reference Range Interpretation Comments SARS-CoV-2 (COVID-19) RNA Not detected [Presence] in Respiratory specimen by NALINI with probe detection (test code = 82732-2) Whether patient is employed in a No healthcare setting (test code = 63331-4) Whether the patient has symptoms Yes related to condition of interest (test code = 13495-6) Whether the patient was No hospitalized for condition of interest (test code = 75602-5) Whether the patient was admitted No to intensive care unit (ICU) for condition of interest (test code = 93964-5) Whether patient resides in a No congregate care setting (test code = 14628-1) status (test code = No 09476-9) Date and time of symptom onset Unknown (test code = 77701-0) [facility] urinalysis [id number] 15:57:00 Test Item Value Reference Range Interpretation Comments Color urine, POC (test Yellow code = 3841928) Clarity urine, POC (test Clear code = 4260826) Glucose urine, POC (test Negative Negative code = 8655110) Bilirubin urine, POC Negative Negative (test code = 7801899) Ketones urine, POC (test Negative Negative code = 9625942) Specific gravity urine, >/=1.030 1.005-1.030 POC (test code = 6604040) Blood urine, POC (test Negative Negative code = 1867406) pH urine, POC (test code See_Comment [A utomated message] = 2747440) The system [employer] generated this result transmitted ref erence range: 5.0, 5.5 , 6.0, 6.5, 7.0, 7.5, 8.0, 8.5. The refere nce range was not u sed to interpret this result as normal/abnor mal. Protein urine, POC (test 3+ Negative A code = 0767186) Urobilinogen urine, POC <2.0 See_Comment [Au tomated message] (test code = 2957560) The sy stem which generated this result transmitted ref erence range: <=2.0. T he reference range was not used to int erpret this result as normal/abnormal . Nitrite urine, POC (test Negative Negative code = 5046795) Leukocyte esterase Trace Negative A urine, POC (test code = 7598836) Lab Interpretation (test Abnormal code = 75617-7) [facility] urinalysis [id number] 15:57:00 Test Item Value Reference Range Interpretation Comments Color urine, POC (test Yellow code = 8209587) Clarity urine, POC (test Clear code = 4987984) Glucose urine, POC (test Negative Negative code = 1208401) Bilirubin urine, POC Negative Negative (test code = 0137842) Ketones urine, POC (test Negative Negative code = 3034795) Specific gravity urine, >/=1.030 1.005-1.030 POC (test code = 3413990) Blood urine, POC (test Negative Negative code = 9144629) pH urine, POC (test code See_Comment [A utomated message] = 2718971) The system [employer] generated this result transmitted ref erence range: 5.0, 5.5 , 6.0, 6.5, 7.0, 7.5, 8.0, 8.5. The refere nce range was not u sed to interpret this result as normal/abnor mal. Protein urine, POC (test 3+ Negative A code = 6974017) Urobilinogen urine, POC <2.0 See_Comment [Au tomated message] (test code = 6853942) The sy stem which generated this result transmitted ref erence range: <=2.0. T he reference range was not used to int erpret this result as normal/abnormal . Nitrite urine, POC (test Negative Negative code = 0927022) Leukocyte esterase Trace Negative A urine, POC (test code = 7370751) Lab Interpretation (test Abnormal code = 54474-7) [facility] [place] urinalysis [id number] 15:57:00 Test Item Value Reference Range Interpretation Comments Color urine, POC (test Yellow code = 0829450) Clarity urine, POC (test Clear code = 3796077) Glucose urine, POC (test Negative Negative code = 0637685) Bilirubin urine, POC Negative Negative (test code = 4017722) Ketones urine, POC (test Negative Negative code = 4020483) Specific gravity urine, >/=1.030 1.005-1.030 POC (test code = 8112840) Blood urine, POC (test Negative Negative code = 7976283) pH urine, POC (test code See_Comment [A utomated message] = 0759256) The system [employer] generated this result transmitted ref erence range: 5.0, 5.5 , 6.0, 6.5, 7.0, 7.5, 8.0, 8.5. The refere nce range was not u sed to interpret this result as normal/abnor mal. Protein urine, POC (test 3+ Negative A code = 8491493) Urobilinogen urine, POC <2.0 See_Comment [Au tomated message] (test code = 7156157) The sy stem which generated this result transmitted ref erence range: <=2.0. T he reference range was not used to int erpret this result as normal/abnormal . Nitrite urine, POC (test Negative Negative code = 8941893) Leukocyte esterase Trace Negative A urine, POC (test code = 4544170) Lab Interpretation (test Abnormal code = 59196-1) [facility] urinalysis [id number] 15:57:00 Test Item Value Reference Range Interpretation Comments Color urine, POC (test Yellow code = 4526375) Clarity urine, POC (test Clear code = 1644604) Glucose urine, POC (test Negative Negative code = 3046405) Bilirubin urine, POC Negative Negative (test code = 3086665) Ketones urine, POC (test Negative Negative code = 2635938) Specific gravity urine, >/=1.030 1.005-1.030 POC (test code = 9840678) Blood urine, POC (test Negative Negative code = 5345896) pH urine, POC (test code See_Comment [A utomated message] = 2489744) The system [employer] generated this result transmitted ref erence range: 5.0, 5.5 , 6.0, 6.5, 7.0, 7.5, 8.0, 8.5. The refere nce range was not u sed to interpret this result as normal/abnor mal. Protein urine, POC (test 3+ Negative A code = 4106677) Urobilinogen urine, POC <2.0 See_Comment [Au tomated message] (test code = 5504092) The sy stem which generated this result transmitted ref erence range: <=2.0. T he reference range was not used to int erpret this result as normal/abnormal . Nitrite urine, POC (test Negative Negative code = 7877041) Leukocyte esterase Trace Negative A urine, POC (test code = 0542757) Lab Interpretation (test Abnormal code = 77739-4) [facility] urinalysis [id number] 15:57:00 Test Item Value Reference Range Interpretation Comments Color urine, POC (test Yellow code = 6349301) Clarity urine, POC (test Clear code = 9930702) Glucose urine, POC (test Negative Negative code = 3526323) Bilirubin urine, POC Negative Negative (test code = 3125946) Ketones urine, POC (test Negative Negative code = 3265217) Specific gravity urine, >/=1.030 1.005-1.030 POC (test code = 6668890) Blood urine, POC (test Negative Negative code = 8408927) pH urine, POC (test code See_Comment [A utomated message] = 3503748) The system [employer] generated this result transmitted ref erence range: 5.0, 5.5 , 6.0, 6.5, 7.0, 7.5, 8.0, 8.5. The refere nce range was not u sed to interpret this result as normal/abnor mal. Protein urine, POC (test 3+ Negative A code = 5278644) Urobilinogen urine, POC <2.0 See_Comment [Au tomated message] (test code = 4619156) The sy stem which generated this result transmitted ref erence range: <=2.0. T he reference range was not used to int erpret this result as normal/abnormal . Nitrite urine, POC (test Negative Negative code = 4223222) Leukocyte esterase Trace Negative A urine, POC (test code = 7644675) Lab Interpretation (test Abnormal code = 85671-1) [facility] urinalysis [id number] 15:57:00 Test Item Value Reference Range Interpretation Comments Color urine, POC (test Yellow code = 9134338) Clarity urine, POC (test Clear code = 1538695) Glucose urine, POC (test Negative Negative code = 1727028) Bilirubin urine, POC Negative Negative (test code = 0017930) Ketones urine, POC (test Negative Negative code = 9940126) Specific gravity urine, >/=1.030 1.005-1.030 POC (test code = 6061256) Blood urine, POC (test Negative Negative code = 9522284) pH urine, POC (test code 6.0 See_Comment [A utomated message] = 2733182) The system [employer] generated this result transmitted ref erence range: 5.0, 5.5 , 6.0, 6.5, 7.0, 7.5, 8.0, 8.5. The refere nce range was not u sed to interpret this result as normal/abnor mal. Protein urine, POC (test 3+ Negative A code = 7794323) Urobilinogen urine, POC <2.0 <=2.0 (test code = 2356806) Nitrite urine, POC (test Negative Negative code = 1179200) Leukocyte esterase Trace Negative A urine, POC (test code = 7436194) Lab Interpretation (test Abnormal code = 77711-9) [facility] rapid strep [id number] 15:45:00 Test Item Value Reference Range Interpretation Comments Rapid strep A antigen result (test Negative Negative code = 79246-0) Lab Interpretation (test code = Normal 27509-7) [facility] Influenza [id number] 15:45:00 Test Item Value Reference Range Interpretation Comments Rapid Influenza A Ag (test code = Negative 83082-2) Rapid Influenza B Ag (test code = Negative 43543-0) Lab Interpretation (test code = Normal 74126-0) [facility] rapid strep [id number] 15:45:00 Test Item Value Reference Range Interpretation Comments Rapid strep A antigen result (test Negative Negative code = 97272-3) Lab Interpretation (test code = Normal 74691-2) [facility] Influenza [id number] 15:45:00 Test Item Value Reference Range Interpretation Comments Rapid Influenza A Ag (test code = Negative 13640-0) Rapid Influenza B Ag (test code = Negative 56578-6) Lab Interpretation (test code = Normal 33754-1) [facility] rapid strep [id number] 15:45:00 Test Item Value Reference Range Interpretation Comments Rapid strep A antigen result (test Negative Negative code = 48843-1) Lab Interpretation (test code = Normal 52548-8) [facility] Influenza [id number] 15:45:00 Test Item Value Reference Range Interpretation Comments Rapid Influenza A Ag (test code = Negative 09021-6) Rapid Influenza B Ag (test code = Negative 65316-6) Lab Interpretation (test code = Normal 41081-8) [facility] rapid strep [id number] 15:45:00 Test Item Value Reference Range Interpretation Comments Rapid strep A antigen result (test Negative Negative code = 98321-5) Lab Interpretation (test code = Normal 83177-4) [facility] Influenza [id number] 15:45:00 Test Item Value Reference Range Interpretation Comments Rapid Influenza A Ag (test code = Negative 59000-5) Rapid Influenza B Ag (test code = Negative 67762-7) Lab Interpretation (test code = Normal 20584-5) [facility] rapid strep [id number] 15:45:00 Test Item Value Reference Range Interpretation Comments Rapid strep A antigen result (test Negative Negative code = 05157-1) Lab Interpretation (test code = Normal 82424-9) [facility] Influenza [id number] 15:45:00 Test Item Value Reference Range Interpretation Comments Rapid Influenza A Ag (test code = Negative 43308-7) Rapid Influenza B Ag (test code = Negative 61476-3) Lab Interpretation (test code = Normal 79796-1) [facility] rapid strep [id number] 15:45:00 Test Item Value Reference Range Interpretation Comments Rapid strep A antigen result (test Negative Negative code = 55038-3) Lab Interpretation (test code = Normal 10419-0) [facility] Influenza [id number] 15:45:00 Test Item Value Reference Range Interpretation Comments Rapid Influenza A Ag (test code = Negative 82226-2) Rapid Influenza B Ag (test code = Negative 44185-9) Lab Interpretation (test code = Normal 66002-2) [facility] [id number] 22:12:52 Test Item Value Reference Range Interpretation Comments Case number (test code = [id number]) Surgical pathology See link below for report (test code = PDF Lab Report 2255) Result status (test code This is Final Report = [id number]) [address] [id number] 22:12:52 Test Item Value Reference Range Interpretation Comments Case number (test code = [id number]) Surgical pathology See link below for report (test code = PDF Lab Report 2255) Result status (test code This is Final Report = 9885748) [address] [id number] 22:12:52 Test Item Value Reference Range Interpretation Comments Case number (test code = [id number]) Surgical pathology See link below for report (test code = PDF Lab Report 2255) Result status (test code This is Final Report = [id number]) [address] [id number] 22:12:52 Test Item Value Reference Range Interpretation Comments Case number (test code = [id number]) Surgical pathology See link below for report (test code = PDF Lab Report 2255) Result status (test code This is Final Report = [id number]) [address] [id number] 22:12:52 Test Item Value Reference Range Interpretation Comments Case number (test code = [id number]) Surgical pathology See link below for report (test code = PDF Lab Report 2255) Result status (test code This is Final Report = [id number]) [address]-2 (COVID-19) RNA [Presence] in Respiratory specimen by NALINI with probe [id number] 19:15:15 Test Item Value Reference Range Interpretation Comments SARS-CoV-2 (COVID-19) RNA Not detected Not-Detected [Presence] in Respiratory specimen by NALINI with probe detection (test code = 66451-5) Whether patient is employed in a healthcare setting (test code = 75166-9) Whether the patient has symptoms related to condition of interest (test code = 83683-9) Patient was hospitalized because of this condition (test code = 25841-4) Whether the patient was admitted to intensive care unit (ICU) for condition of interest (test code = 88361-6) Whether patient resides in a congregate care setting (test code = 31003-0) [facility]
[2023-06-05] MEDS ORDERED: KETOROLAC 30 MG/ML INJ ONE (08:57)
--- NOTE | 2023-06-05 09:41 | RAD REPORT ---
EXAM DESCRIPTION: RAD - Forearm Left - 06/05/2023 9:09 am CLINICAL HISTORY: Left forearm pain status post injury FINDINGS: No fracture is seen. No bony abnormality is displayed
--- NOTE | 2023-06-05 09:43 | RAD REPORT ---
EXAM DESCRIPTION: USExtremity Venous Uni Ltd06/05/2023 9:33 am CLINICAL HISTORY: Left arm pain COMPARISON: None FINDINGS: The left internal jugular,subclavian,cephalic, axillary, brachial, basilic, ulnar and ra dial veins are generally compressible and demonstrate augmentation. Doppler demonstrates good flow. Grayscale, color and spectral analysis performed on all vessels IMPRESSION: No evidence of thrombus within the veins of the left upper extremity
--- NOTE | 2023-06-05 09:53 | EDPHYS ---
Physician Documentation [facility] Name: Marielena Smiley Age: 77 yrs Sex: Female : 1945 Arrival Date: 06/05/2023 Time: 08:26 Bed 13 Private MD: Araceli Khan C ED Physician Jose Green HPI: 06/05 09:59 This 77 yrs old Female presents to ER via Ambulatory with complaints of Arm Pain, Wrist kb Pain. 10:10 The patient or guardian complains of pain, that is acute, tenderness. The complaints kb affect the left wrist and palmar aspect of left forearm. Context: The problem was sustained at home, resulted from unknown cause. Onset: The symptoms/episode began/occurred this morning. Treatment prior to arrival includes: no previous treatment. Modifying factors: The symptoms are alleviated by nothing. the symptoms are aggravated by movement. Associated signs and symptoms: Pertinent positives: pain, swelling. Severity of symptoms: At their worst the symptoms were moderate, in the emergency department the symptoms are unchanged. The patient has not experienced similar symptoms in the past. The patient has not recently seen a physician. Historical: - Allergies: 08:38 No Known Allergies; hb - Home Meds: 08:38 sertraline 100 mg oral tablet daily [Active]; Metoprolol Tartrate Oral [Active]; hb trazodone 100 mg oral tablet nightly [Active]; ezetimibe 10 mg oral tablet daily [Active]; trazodone 100 mg Oral tablet daily [Active]; amlodipine 5 mg tablet daily [Active]; Fish Oil oral daily [Active]; Glucosamine 500 mg oral tablet daily [Active]; - PMHx: 08:38 belkis-prince; Fibromyalgia; hypertension (resolved); hb - PSHx: 08:38 Appendectomy; Cholecystectomy; hysterectomy; hb 08:43 Feet - Bilateral; hb - Immunization history:: Adult Immunizations up to date. - Social history:: Smoking status: Patient denies any tobacco usage or history of. ROS: 09:58 Constitutional: Negative for fever, chills, and weight loss. kb 09:58 MS/extremity: Positive for pain, of the left wrist and palmar aspect of left forearm. 09:58 All other systems are negative. Exam: 09:58 Constitutional: This is a well developed, well nourished patient who is awake, alert, kb and in no acute distress. Head/Face: Normocephalic, atraumatic. ENT: Moist Mucous membranes Respiratory: Respirations even and unlabored. No increased work of breathing. Talking in full sentences Skin: Warm, dry with normal turgor. Normal color. Neuro: Awake and alert, GCS 15, oriented to person, place, time, and situation. Moves all extremities. Normal gait. 09:58 Musculoskeletal/extremity: Extremities: grossly normal except: noted in the palmar aspect of left forearm and left wrist: pain, swelling, tenderness, ROM: limited active range of motion due to pain, Circulation is intact in all extremities. Sensation intact. Vital Signs: 08:37 BP 144 / 70; Pulse 59; Resp 16; Temp 98.6(O); Pulse Ox 99% on R/A; Weight 64.86 kg; hb Height 5 ft. 6 in. ; Pain 10/10; 09:30 BP 132 / 68; Pulse 58; Resp 16; Pulse Ox 99% ; hb 08:37 Body Mass Index 23.08 (64.86 kg, 167.64 cm) hb 08:37 Pain Scale: Adult hb MDM: 08:27 Patient medically screened. kb 09:59 Differential diagnosis: closed fracture, contusion, tendonitis, strain. Data reviewed: kb vital signs, nurses notes. Counseling: I had a detailed discussion with the patient and/or guardian regarding: the historical points, exam findings, and any diagnostic results supporting the discharge/admit diagnosis, radiology results, the need for outpatient follow up, a family practitioner, a orthopedic surgeon, to return to the emergency department if symptoms worsen or persist or if there are any questions or concerns that arise at home. 10:10 Management of patient was discussed with the following: Primary Care Provider: Dr Khan. truong 06/05 08:34 Order name: US Extremity Venous Unilateral Ltd; Complete Time: 09:48 kb 06/05 08:54 Order name: Forearm Left; Complete Time: 09:48 EDMS Administered Medications: 08:51 Drug: Ketorolac IM 30 mg Route: IM; Site: right deltoid; hb 09:40 Follow up: Response: No adverse reaction hb Disposition: 10:25 Co-signature as Attending Physician, Jose Green MD I agree with the assessment and kdr plan of care. Disposition Summary: 08/13/23 09:52 Discharge Ordered Location: Home kb Condition: Stable kb Diagnosis - Pain in left forearm kb Followup: kb - With: Emergency Department - When: As needed - Reason: Worsening of condition Followup: kb - With: Araceli Khan MD - When: 2 - 3 days - Reason: Recheck today's complaints, Continuance of care, Re-evaluation by your physician Discharge Instructions: - Discharge Summary Sheet kb - Musculoskeletal Pain kb Forms: - Medication Reconciliation Form kb - Thank You Letter kb - Antibiotic Education kb - Prescription Opioid Use kb - Patient Portal Instructions kb - Leadership Thank You Letter kb Prescriptions: - Diclofenac Sodium 75 mg Oral tablet,delayed release (DR/EC) - take 1 tablet by ORAL route 2 times per day As needed; 30 tablet; Refills: 0, kb Product Selection Permitted Signatures: Dispatcher [employer] EDMS María Hwang, HENOK OROPEZA-Jose Jones MD MD kdr Kaye Hubbard RN RN hb Corrections: (The following items were deleted from the chart) 08:43 08:38 Allergies: No Known Allergies; hb hb 08:43 08:38 Allergies: Trazodone; Diarrhea, muscle pain; hb hb 08:54 08:35 Forearm Left W Comparison+RAD.RAD.BRZ ordered. EDMS EDMS 09:10 08:55 Forearm Right ordered. EDMS EDMS 10:01 09:56 Sling ordered. kb kb
--- NOTE | 2023-06-05 09:53 | ER ---
Nurse's Notes [facility] Name: Marielena Smiley Age: 77 yrs Sex: Female : 1945 Arrival Date: 06/05/2023 Time: 08:26 Bed 13 Private MD: Araceli Khan C Diagnosis: Pain in left forearm Presentation: 06/05 08:37 Chief complaint: Severe left arm pain upon waking today. Denies injury. Coronavirus hb screen: At this time, the client does not indicate any symptoms associated with coronavirus-19. Ebola Screen: No symptoms or risks identified at this time. Initial Sepsis Screen: Does the patient meet any 2 criteria? No. Patient's initial sepsis screen is negative. Does the patient have a suspected source of infection? No. Patient's initial sepsis screen is negative. Risk Assessment: Do you want to hurt yourself or someone else? Patient reports no desire to harm self or others. Onset of symptoms was June 05, 2023. 08:37 Method Of Arrival: Ambulatory hb 08:37 Acuity: MIHIR 3 hb Triage Assessment: 08:43 General: Appears in no apparent distress. uncomfortable, Behavior is calm, cooperative. hb Pain: Pain currently is 10 out of 10 on a pain scale. EENT: No signs and/or symptoms were reported regarding the EENT system. Neuro: Level of Consciousness is awake, alert, obeys commands, Oriented to person, place, time, situation. Cardiovascular: Patient's skin is warm and dry. Respiratory: Respiratory effort is even, unlabored, Respiratory pattern is regular, symmetrical. GI: No signs and/or symptoms were reported involving the gastrointestinal system. : No signs and/or symptoms were reported regarding the genitourinary system. Derm: Skin is pink, warm \T\ dry. Musculoskeletal: Reports left arm pain. Historical: - Allergies: 08:38 No Known Allergies; hb - Home Meds: 08:38 sertraline 100 mg oral tablet daily [Active]; Metoprolol Tartrate Oral [Active]; hb trazodone 100 mg oral tablet nightly [Active]; ezetimibe 10 mg oral tablet daily [Active]; trazodone 100 mg Oral tablet daily [Active]; amlodipine 5 mg tablet daily [Active]; Fish Oil oral daily [Active]; Glucosamine 500 mg oral tablet daily [Active]; - PMHx: 08:38 belkis-prince; Fibromyalgia; hypertension (resolved); hb - PSHx: 08:38 Appendectomy; Cholecystectomy; hysterectomy; hb 08:43 Feet - Bilateral; hb - Immunization history:: Adult Immunizations up to date. - Social history:: Smoking status: Patient denies any tobacco usage or history of. Screenin:44 [facility] ED Fall Risk Assessment (Adult) Score/Fall Risk Level 0 - 2 = Low Risk hb Oriented to surroundings, Maintained a safe environment. Abuse screen: Denies threats or abuse. Denies injuries from another. Nutritional screening: No deficits noted. Tuberculosis screening: No symptoms or risk factors identified. Assessment: 08:44 General: See triage assessment . hb 09:55 Reassessment: Patient appears in no apparent distress at this time. Patient and/or hb family updated on plan of care and expected duration. Pain level reassessed. Patient is alert, oriented x 3, equal unlabored respirations, skin warm/dry/pink. Vital Signs: 08:37 BP 144 / 70; Pulse 59; Resp 16; Temp 98.6(O); Pulse Ox 99% on R/A; Weight 64.86 kg; hb Height 5 ft. 6 in. ; Pain 10/10; 09:30 BP 132 / 68; Pulse 58; Resp 16; Pulse Ox 99% ; hb 08:37 Body Mass Index 23.08 (64.86 kg, 167.64 cm) hb 08:37 Pain Scale: Adult hb ED Course: 08:26 Patient arrived in ED. rg4 08:26 Araceli Khan MD is Private Physician. rg4 08:26 María H[facility] F[facility]-C [facility] kb 08:27 Jose Green MD is Attending Physician. kb 08:38 Triage completed. hb 08:43 Arm band placed on. hb 08:44 Patient has correct armband on for positive identification. hb 08:51 Kaye Hubbard, BARBARA is Primary Nurse. hb 09:11 Forearm Left In Process Unspecified. EDMS 09:30 Provided Education on: Follow up. hb 09:35 US Extremity Venous Unilateral Ltd In Process Unspecified. EDMS 09:52 Araceli Khan MD is Referral Physician. kb 10:09 No provider procedures requiring assistance completed. Patient did not have IV access hb during this emergency room visit. Administered Medications: 08:51 Drug: Ketorolac IM 30 mg Route: IM; Site: right deltoid; hb 09:40 Follow up: Response: No adverse reaction hb Medication: 08:44 VIS not applicable for this client. hb Outcome: 09:52 Discharge ordered by . truong 10:09 Discharged to home ambulatory, with significant other. hb 10:09 Condition: stable 10:09 Discharge instructions given to patient, Instructed on discharge instructions, follow up and referral plans. medication usage, Demonstrated understanding of instructions, follow-up care, medications, Prescriptions given X 1. 10:09 Patient left the ED. hb Signatures: Dispatcher [employer] EDMS María Hwang, SLEEPING ROOM CLEANER-C SLEEPING ROOM CLEANER-Kaye Calderón RN RN Yancy Myoa4 Corrections: (The following items were deleted from the chart) 08:43 08:38 Allergies: No Known Allergies; hb hb 08:43 08:38 Allergies: Trazodone; Diarrhea, muscle pain; hb hb
[2023-06-05 10:14] VITALS: TEMP 98.6; O2SAT 99
[2023-06-05 10:15] VITALS: BP 132/68
== END 2023-06-05 10:09 | disposition home or self-care (01) ==
LOC: ER 08:26
DX: M79.632 Pain in left forearm (principal)
CPT/HCPCS: 93971; 96372; 99284

== ENCOUNTER 2024-07-26 09:19 | Emergency (ER) | payer OTHER ==
[2024-07-26] MEDS ORDERED: PANTOPRAZOLE 40 MG INJ ONE (09:59)
[2024-07-26 10:04] LABS: Absolute Basophils 0.1 K/uL (0-0.5); Absolute Eosinophils 0.1 K/uL (0-0.5); Absolute Lymphocytes (CBC) 1.6 K/uL (0.7-4.9); Absolute Monocytes 0.7 K/uL (0.1-1.3); Absolute Neutrophil 3.1 K/uL (1.8-8.0); Basophils % 1.2 % (0-1.3); Eosinophils % 1.3 % (0-4.4); Hematocrit 38.3 % (36.0-45.0); Hemoglobin 12.5 g/dL (12.0-15.0); Lymphocytes % 29.2 % (15.3-44.8); MCH 30.6 pg (27.0-35.0); MCHC 32.8 g/dL (32.0-36.0); MCV 93.4 fL (80-100); MPV 7.6 fL (7.6-11.3); Monocytes % 12.1 % (3.3-12.3); Neutrophils % 56.2 % (41.7-73.7); Platelets 263 thou/uL (152-406); RBC Red Blood Cell Count 4.09 M/uL (3.86-4.86); Red Cell Distribution Width 13.7 % (12.1-15.2)
[2024-07-26 10:18] LABS: Specific Gravity 1.024 (1.005-1.030); Sqamous Epithelial <5 /HPF (None Seen); Urine Bacteria <20 /HPF (<20); Urine Bilirubin NEGATIVE (Negative); Urine Blood Negative (Negative); Urine Clarity Extremely Turbid (Clear); Urine Color Yellow (Yellow); Urine Culture Reflex Order NOT NEEDED; Urine Glucose NEGATIVE (Negative); Urine Ketones NEGATIVE (Negative); Urine Microscopic Reflex YN ORDER UMIC; Urine Mucus 1+ /HPF (None Seen); Urine Nitrite NEGATIVE (Negative); Urine Protein TRACE (Negative); Urine RBC None Seen /HPF (None Seen); Urine Urobilinogen Normal (Normal); Urine WBC <5 /HPF (<5); Urine pH 5.5 (5.0-7.0)
[2024-07-26 10:24] LABS: ALT/SGPT 17 U/L (13-56); Albumin 3.3 g/dL (3.4-5.0); Alkaline Phosphatase 63 U/L (45-117); BUN Blood Urea Nitrogen 22 mg/dL (7-18); Bicarbonate 28 mEq/L (21-32); Bilirubin Total 0.4 mg/dL (0.2-1.0); Globulin 3.2 g/dL (2.3-3.5); Glomerular Filtration Rate 79 ml/min (=/>90); Glucose Level 93 mg/dL (74-106); Lipase 27 U/L (13-75); Protein, Total 6.5 g/dL (6.4-8.2); Sodium Level 138 mEq/L (136-145)
[2024-07-26 10:25] LABS: AST/SGOT < 10 U/L (15-37)
--- NOTE | 2024-07-26 10:54 | RAD REPORT ---
EXAMINATION: CT ABDOMEN AND PELVIS WITH CONTRAST CLINICAL INDICATION: Abdominal pain TECHNIQUE: CT abdomen and pelvis was performed, after the administration of 100 cc Isovue-300.. Sagit iona and coronal reconstructions were obtained. One or more of the following dose reduction techniques were used: Automated exposure control, adjustment of the mA and/or kV according to patien t size, and/or iterative reconstruction. Unless otherwise specified, incidental findings do not require dedicated imaging follow-up. [id number]. Oral contrast was not given which limits evaluation of b owel and appendix. COMPARISON: none FINDINGS: The liver, spleen, pancreas, adrenals and kidneys appear unremarkable There is no evidence of diverticulitis Hysterectomy. No adnexal mass. Cholecystectomy. Small umbilical hernia. 3.6 cm lipoma anterior musculature left hip Apparent mild thickening wall distal stomach : IMPRESSION: Apparent mild thickening wall distal stomach. This can be secondary to incomplete distention or infla mmation
--- NOTE | 2024-07-26 11:21 | EDPHYS ---
Physician Documentation [facility] Name: Marielena Smiley Age: 79 yrs Sex: Female : 1945 Arrival Date: 07/26/2024 Time: 09:19 Bed 6 Private MD: ED Physician Iván Rahman HPI: 07/26 09:53 This 79 yrs old Female presents to ER via Ambulatory with complaints of Abdominal Pain. rn 09:53 The patient presents with abdominal pain in the epigastric area. rn 09:53 Onset: The symptoms/episode began/occurred 1 month(s) ago. The symptoms radiate to rn back, chest. Associated signs and symptoms: Pertinent negatives: blood in stools, chest pain, fever, shortness of breath, vomiting, vomiting blood. The symptoms are described as achy, crampy, pressure. Modifying factors: The symptoms are alleviated by nothing, the symptoms are aggravated by touching the area. Severity of pain: At its worst the pain was moderate in the emergency department the pain is unchanged. The patient has experienced similar episodes in the past. Patient reports epigastric abdominal pain for at least a month, sent here by Dr. Khan for further evaluation. Reports had upper and lower GI scope a month or 2 ago, showed ulcerations. States compliant with antacid medication. No blood in stool but does report is dark brown. No vomiting or hematemesis. Patient reports pain radiates to chest and back.. Historical: - Allergies: 09:45 Clindamycin; ss - PMHx: 09:45 belkis-prince; Fibromyalgia; hypertension (resolved); ss - PSHx: 09:45 Appendectomy; Cholecystectomy; Feet - Bilateral; hysterectomy; ss - Immunization history:: Client reports receiving the 2nd dose of the Covid vaccine. - Infectious Disease History:: Denies. - Social history:: Smoking status: Patient denies any tobacco usage or history of. - Family history:: not pertinent. - Hospitalizations: : No recent hospitalization is reported. ROS: 09:53 Constitutional: Negative for fever, chills, and weight loss, Neck: Negative for injury, rn pain, and swelling, Cardiovascular: Negative for palpitations, and edema, Respiratory: Negative for shortness of breath, cough, wheezing, and pleuritic chest pain, Abdomen/GI: Positive for epigastric abdominal pain MS/Extremity: Negative for injury and deformity, Skin: Negative for injury, rash, and discoloration, Neuro: Negative for headache, weakness, numbness, tingling, and seizure, Exam: 09:53 Constitutional: This is a well developed, well nourished patient who is awake, alert, rn and in no acute distress. Cardiovascular: Regular rate and rhythm. No pulse deficits. Respiratory: No increased work of breathing, no retractions or nasal flaring. Abdomen/GI: Soft, mild epigastric tenderness. No rebound or guarding. No masses. MS/ Extremity: Pulses equal, no cyanosis. Neuro: Awake and alert, GCS 15 10:32 ECG was reviewed by the Attending Physician. rn Vital Signs: 09:42 BP 106 / 85; Pulse 89; Resp 16; Pulse Ox 98% on R/A; Weight 68.04 kg; Height 5 ft. 6 ss in. ; Pain 7/10; 09:46 Temp 98.1(O); ss 10:05 BP 148 / 69; Pulse 48; Resp 16; Pulse Ox 96% on R/A; aa5 11:22 BP 135 / 72; Pulse 51; Resp 17; Pulse Ox 98% on R/A; rs5 09:42 Body Mass Index 24.21 (68.04 kg, 167.64 cm) ss 09:42 Pain Scale: Adult ss MDM: 09:23 Patient medically screened. rn 11:15 Differential diagnosis: non-specific abd pain, pancreatitis, Peptic Ulcer Disease. rn 11:19 Data reviewed: vital signs, nurses notes, lab test result(s), radiologic studies, CT rn scan, and as a result, I will discharge patient. Consideration of Admission/Observation Escalation of care including admission/observation considered. Escalation considered with admission but spoke to her PCP Dr. Khan, discussed case and states she can be discharged with doubling of her omeprazole and GI follow-up.. Counseling: I had a detailed discussion with the patient and/or guardian regarding the historical points, exam findings, and any diagnostic results supporting the discharge/admit diagnosis, lab results, radiology results, the need for outpatient follow up, to return to the emergency department if symptoms worsen or persist or if there are any questions or concerns that arise at home. Response to treatment: the patient's symptoms have mildly improved after treatment, and as a result, I will discharge patient. Special discussion: I discussed with the patient/guardian in detail that at this point there is no indication for admission to the hospital. It is understood, however, that if the symptoms persist or worsen the patient needs to return immediately for re-evaluation. ED course: CT shows gastritis which is consistent with her symptomatology. Normal H\T\H, normal vitals. Spoke with Dr. Khan, her PCP, request that she be discharged with twice daily omeprazole instead of once daily that she is taking. Wants her to follow-up with Dr. Smith. 07/26 09:32 Order name: CBC with Diff; Complete Time: 10:27 rn 07/26 09:32 Order name: CMP; Complete Time: 10:27 rn 07/26 09:32 Order name: Lipase; Complete Time: 10:27 rn 07/26 09:32 Order name: Urinalysis w/ reflexes; Complete Time: 10:27 rn 07/26 09:49 Order name: Troponin High Sensitivity; Complete Time: 10:27 rn 07/26 09:32 Order name: CT Abd/Pelvis - IV Contrast Only; Complete Time: 11:02 rn 07/26 09:49 Order name: EKG; Complete Time: 09:50 rn 07/26 09:32 Order name: IV Saline Lock; Complete Time: 10:10 rn 07/26 09:32 Order name: Labs collected and sent; Complete Time: 10:10 rn 07/26 09:49 Order name: EKG - Nurse/Tech; Complete Time: 10:10 rn EC:32 Rate is 46 beats/min. Rhythm is regular. QRS [place] is Normal. DE interval is prolonged. rn QRS interval is normal. QT interval is normal. No Q waves. T waves are Normal. No ST changes noted. Clinical impression: Sinus bradycardia. Interpreted by me. Reviewed by me. Administered Medications: 10:05 Drug: Pantoprazole IVP 40 mg IVP once Route: IVP; Site: right antecubital; aa5 10:30 Follow up: Response: No adverse reaction rs5 Disposition Summary: 07/26/24 11:21 Discharge Ordered Notes: Location: Home rn Problem: an ongoing problem rn Symptoms: have improved rn Condition: Stable rn Diagnosis - Acute gastritis rn Followup: rn - With: Private Physician - When: As needed - Reason: Recheck today's complaints, Re-evaluation by your physician Discharge Instructions: - Discharge Summary Sheet rn - Gastritis, Adult rn Forms: - Medication Reconciliation Form rn - Antibiotic turnstile collector - Prescription Opioid Use rn - Patient Portal Instructions rn - Leadership Thank You Letter rn Signatures: Dispatcher [employer] EDMS Iván Rahman MD MD rn Calderon, Audri RN RN aa5 Raven Jose RN RN Stefano Pappas RN rs5 Corrections: (The following items were deleted from the chart) 09: 09:33 CBC+H.LAB.BRZ ordered. EDMS EDMS 09:33 09:33 COMPREHENSIVE METABOLIC PANEL+C.LAB.BRZ ordered. EDMS EDMS 09: 09:33 LIPASE+C.LAB.BRZ ordered. EDMS EDMS 09:33 09:33 Urinalysis+U.LAB.BRZ ordered. EDMS EDMS 09:33 09:33 Abdomen Pelvis W Con+CT.RAD.BRZ ordered. EDMS EDMS
--- NOTE | 2024-07-26 11:21 | ER ---
Nurse's Notes [facility] Name: Marielena Smiley Age: 79 yrs Sex: Female : 1945 Arrival Date: 07/26/2024 Time: 09:19 Bed 6 Private MD: Diagnosis: Acute gastritis Presentation: 07/26 09:42 Chief complaint: Patient states: upper abd pain that radiates towards her back with ss reflux since May. Coronavirus screen: Client denies travel out of the [place] in the last 14 days. Ebola Screen: Patient denies exposure to infectious person. Patient denies travel to an Ebola-affected area in the 21 days before illness onset. Initial Sepsis Screen: Does the patient meet any 2 criteria? No. Patient's initial sepsis screen is negative. Does the patient have a suspected source of infection? No. Patient's initial sepsis screen is negative. Risk Assessment: Do you want to hurt yourself or someone else? Patient reports no desire to harm self or others. Onset of symptoms was May 2024. 09:42 Method Of Arrival: Ambulatory ss 09:42 Acuity: MIHIR 4 ss Historical: - Allergies: 09:45 Clindamycin; ss - PMHx: 09:45 belkis-prince; Fibromyalgia; hypertension (resolved); ss - PSHx: 09:45 Appendectomy; Cholecystectomy; Feet - Bilateral; hysterectomy; ss - Immunization history:: Client reports receiving the 2nd dose of the Covid vaccine. - Infectious Disease History:: Denies. - Social history:: Smoking status: Patient denies any tobacco usage or history of. - Family history:: not pertinent. - Hospitalizations: : No recent hospitalization is reported. Screenin:00 [facility] ED Fall Risk Assessment (Adult) History of falling in the last 3 months, aa5 including since admission No falls in past 3 months (0 pts) Confusion or Disorientation No (0 pts) Intoxicated or Sedated No (0 pts) Impaired Gait No (0 pts) Mobility Assist Device Used No (0 pt) Altered Elimination No (0 pt) Score/Fall Risk Level 0 - 2 = Low Risk Oriented to surroundings, Maintained a safe environment, Educated pt \T\ family on fall prevention, incl call for assistance when getting out of bed. Abuse screen: Denies threats or abuse. Nutritional screening: No deficits noted. Tuberculosis screening: No symptoms or risk factors identified. Assessment: 10:00 General: Appears uncomfortable, Behavior is calm, cooperative. Pain: Complains of pain aa5 in epigastric area Pain radiates to back Pain currently is 7 out of 10 on a pain scale. Quality of pain is described as shooting, indigestion Pain began May 2024 Is continuous. Neuro: Level of Consciousness is awake, alert, obeys commands, Oriented to person, place, time, situation. Cardiovascular: Patient's skin is warm and dry. Respiratory: Airway is patent Respiratory effort is even, unlabored, Respiratory pattern is regular, symmetrical. GI: Abdomen is round non-distended, Bowel sounds present X 4 quads. Abd is soft and non tender X 4 quads. Reports upper abdominal pain, indigestion, Patient currently denies nausea, vomiting. : No signs and/or symptoms were reported regarding the genitourinary system. EENT: No signs and/or symptoms were reported regarding the EENT system. Derm: Skin is pink, warm \T\ dry. Musculoskeletal: Range of motion: intact in all extremities. 10:05 Reassessment: Patient is alert, oriented x 3, equal unlabored respirations, skin aa5 warm/dry/pink. 10:52 Reassessment: Patient and/or family updated on plan of care and expected duration. Pain rs5 level reassessed. Patient is alert, oriented x 3, equal unlabored respirations, skin warm/dry/pink. 11:22 Reassessment: Patient and/or family updated on plan of care and expected duration. Pain rs5 level reassessed. Patient is alert, oriented x 3, equal unlabored respirations, skin warm/dry/pink. Vital Signs: 09:42 BP 106 / 85; Pulse 89; Resp 16; Pulse Ox 98% on R/A; Weight 68.04 kg; Height 5 ft. 6 ss in. ; Pain 7/10; 09:46 Temp 98.1(O); ss 10:05 BP 148 / 69; Pulse 48; Resp 16; Pulse Ox 96% on R/A; aa5 11:22 BP 135 / 72; Pulse 51; Resp 17; Pulse Ox 98% on R/A; rs5 09:42 Body Mass Index 24.21 (68.04 kg, 167.64 cm) ss 09:42 Pain Scale: Adult ss ED Course: 09:22 Patient arrived in ED. mg5 09:23 Iván Rahman MD is Attending Physician. rn 09:37 Loreto Ribera, RN is Primary Nurse. aa5 09:45 Triage completed. ss 09:45 Arm band placed on right wrist. ss 10:00 Patient has correct armband on for positive identification. Placed in gown. Bed in low aa5 position. Call light in reach. Side rails up X 1. Client placed on continuous cardiac and pulse oximetry monitoring. NIBP monitoring applied. monitoring coordinator on. Pulse ox on. NIBP on. 10:00 Initial lab(s) drawn, by ED staff, sent to lab. Inserted saline lock: 20 gauge in right aa5 antecubital area, using aseptic technique. Blood collected. Flushed with 10 mL NS IV inserted by Ruslan Pappas RN. 10:04 Urine collected: clean catch specimen, sent to lab. aa5 10:07 EKG done, by ED staff, reviewed by Iván Rahman MD. aa5 10:15 No provider procedures requiring assistance completed. aa5 10:38 CT Abd/Pelvis - IV Contrast Only In Process Unspecified. EDMS 11:30 Provided Education on: discharge instructions . rs5 11:30 IV discontinued, intact, bleeding controlled, No redness/swelling at site. Pressure rs5 dressing applied. Administered Medications: 10:05 Drug: Pantoprazole IVP 40 mg IVP once Route: IVP; Site: right antecubital; aa5 10:30 Follow up: Response: No adverse reaction rs5 Medication: 10:12 VIS not applicable for this client. aa5 Outcome: 11:21 Discharge ordered by . rn 11:30 Discharged to home ambulatory, rs5 11:30 Condition: stable rs5 11:30 Discharge instructions given to patient, family, Instructed on discharge instructions, follow up and referral plans. Demonstrated understanding of instructions, follow-up care, 11:35 Patient left the ED. rs5 Signatures: Dispatcher [employer] EDMS Iván Rahman MD MD rn Calderon, Audri, RN RN aa5 Raven Jose RN RN Stefano Pappas RN RN rs5 Denise Puente mg5
[2024-07-26 23:24] VITALS: TEMP 98.1
[2024-07-26 23:25] VITALS: BP 148/69; O2SAT 96
--- NOTE | 2024-07-27 16:37 | EKG ---
Test Date: 2024-07-26 Test Time: 10:07:39 Strapping Machine Operator: THAIS MEASUREMENT RESULTS: Intervals: Rate: 46 MS: 232 QRSD: 86 QT: 506 QTc: 442 [place]: P: 52 MS: 232 QRS: 34 T: 58 INTERPRETIVE STATEMENTS: Sinus bradycardia with sinus arrhythmia with 1st degree AV block Otherwise normal ECG Compared to ECG 03/30/2024 10:07:04 No significant changes Electronically Signed On 07-27-24 16:33:00 CDT by Zaki Hendrickson
== END 2024-07-26 11:35 | disposition home or self-care (01) ==
LOC: ER 09:19
DX: K29.00 Acute gastritis without bleeding (principal)
CPT/HCPCS: 93005; 85025; 81001; 36415; 84484; 83690; 80053; 74177; 96374; 99285; Q9967; J2470

== ENCOUNTER 2025-01-11 12:51 | Inpatient (IN) | payer OTHER ==
[2025-01-11 13:14] LABS: Absolute Basophils 0.1 K/uL (0-0.5); Absolute Eosinophils 0.1 K/uL (0-0.5); Absolute Monocytes 0.6 K/uL (0.1-1.3); Absolute Neutrophil 3.1 K/uL (1.8-8.0); Basophils % 1.5 % (0-1.3); Hemoglobin 13.7 g/dL (12.0-15.0); Lymphocytes % 34.5 % (15.3-44.8); MCH 32.1 pg (27.0-35.0); MCHC 34.1 g/dL (32.0-36.0); MCV 94.1 fL (80-100); Monocytes % 9.6 % (3.3-12.3); Neutrophils % 53.4 % (41.7-73.7); Nucleated Red Blood Cells % 0.1 % (0-0); Platelets 261 thou/uL (152-406); RBC Red Blood Cell Count 4.26 M/uL (3.86-4.86); Red Cell Distribution Width 13.4 % (12.1-15.2)
[2025-01-11 13:21] LABS: PT Prothrombin Time 12.1 SECONDS (10-13.0); Protime INR 1.06
[2025-01-11 13:35] LABS: ALT/SGPT 20 U/L (13-56); AST/SGOT 13 U/L (15-37); Albumin 3.8 g/dL (3.4-5.0); Alkaline Phosphatase 79 U/L (45-117); Anion Gap 7.8 mEq/L (5.0-15.0); BUN Blood Urea Nitrogen 17 mg/dL (7-18); Bicarbonate 27 mEq/L (21-32); Bilirubin Total 0.6 mg/dL (0.2-1.0); Globulin 3.7 g/dL (2.3-3.5); Glomerular Filtration Rate 73 ml/min (=/>90); Glucose Level 88 mg/dL (74-106); Magnesium 2.5 mg/dL (1.6-2.4); NT PRO-BNP 228 pg/mL (<450); Potassium 3.8 mEq/L (3.5-5.1); Protein, Total 7.5 g/dL (6.4-8.2); Sodium Level 137 mEq/L (136-145); Troponin High Sensitivity 3.1 pg/mL (<58.9)
[2025-01-11 13:43] LABS: Bilirubin Direct < 0.2 mg/dL (0-0.2); Bilirubin Indirect, Calculated 0.4 mg/dL (0.2-0.8)
--- NOTE | 2025-01-11 14:16 | RAD REPORT ---
EXAMINATION: ONE VIEW CHEST XR CLINICAL INDICATION: CHEST PAIN TECHNIQUE: Frontal chest projection is submitted. Examination is limited by patient positioning and t echnique. COMPARISON: 06/07/2024 FINDINGS: The lungs are well inflated and clear. The heart is normal in size. No displaced fractures identified . Aortic atherosclerosis. IMPRESSION: No acute intrathoracic abnormalities.
[2025-01-11] MEDS ORDERED: ASPIRIN 81 MG CHEWABLE TABLET ONE (14:18)
--- NOTE | 2025-01-11 15:05 | EDPHYS ---
Physician Documentation [facility] Name: Marielena Smiley Age: 79 yrs Sex: Female : 1945 Arrival Date: 01/11/2025 Time: 12:51 Bed 17 Private MD: ED Physician Kahlil Aponte HPI: 01/11 12:57 This 79 yrs old Female presents to ER via Unassigned with complaints of Chest Pain. kb 13:01 Pt is a 79 year old female who presents for chest pain and shortness of breath that kb started today. States she has had chest pressure for the last couple of weeks, was seen by Young yesterday and had a stress test which failed. Reports Dr Vidal wanted to schedule a cardiac cath next. Reports pain is to center of chest. . Historical: - Allergies: 13:03 Clindamycin; iw - PMHx: 13:03 hypertension (resolved); belkis-prince; Fibromyalgia; iw - PSHx: 13:03 Feet - Bilateral; hysterectomy; Appendectomy; Cholecystectomy; iw - Immunization history:: Adult Immunizations unknown. - Infectious Disease History:: Denies. - Social history:: Smoking status: Patient denies any tobacco usage or history of. ROS: 13:03 Constitutional: As per HPI kb Exam: 13:03 Head/Face: Normocephalic, atraumatic. ENT: Moist Mucous membranes Cardiovascular: kb Regular rate Respiratory: Respirations even and unlabored. No increased work of breathing. Talking in full sentences Skin: Warm, dry with normal turgor. Normal color. MS/ Extremity: Pulses equal, no cyanosis. Neurovascular intact. Full, normal range of motion. Neuro: Awake and alert, GCS 15, oriented to person, place, time, and situation. 13:03 Constitutional: The patient appears alert, awake, uncomfortable, 13:03 ECG was reviewed by the Attending Physician. Vital Signs: 14:00 BP 143 / 68; Pulse 53; Resp 16; Temp 98.4; Pulse Ox 100% ; db 15:30 BP 160 / 81; Pulse 54; Resp 17; Pulse Ox 97% ; db 16:28 Weight 68.04 kg; kb 16:30 BP 155 / 68; Pulse 50; Resp 14; Pulse Ox 96% ; db 17:00 BP 125 / 74; Pulse 63; Resp 18; Pulse Ox 99% on R/A; db 17:30 BP 172 / 60; Pulse 53; Resp 16; Pulse Ox 100% ; db 18:00 BP 114 / 78; Pulse 53; Resp 15; Pulse Ox 96% ; db 18:30 BP 133 / 84; Pulse 58; Resp 17; Pulse Ox 97% on R/A; db MDM: 12:57 Medical Screening Exam initiated kb 13:04 Differential diagnosis: abnormal EKG, acute myocardial infarction, chest wall pain. The patient was given aspirin in the Emergency Department. Data reviewed: vital signs, nurses notes. ED course: Pt is a 79 year old female with a history of hypertension, high cholesterol and chronic pain that presents for substernal chest pain that started today. Pt appears uncomfortable on exam. Respirations even and unlabored, lungs clear bilaterally, rhythm regular, sinus bradycardia with first degree block on EKG. Will obtain serum labs and chest x-ray. . 15:03 Consideration of Admission/Observation Patient was admitted/placed on observation. Escalation of care including admission/observation considered. Management of patient was discussed with the following: Cyber Forensic Specialist: Dr Hendrickson accepts pt for consult. "will cath on Tuesday". Counseling: I had a detailed discussion with the patient and/or guardian regarding the historical points, exam findings, and any diagnostic results supporting the discharge/admit diagnosis, lab results, radiology results, the need for further work-up and treatment in the hospital. 01/11 13:03 Order name: Basic Metabolic Panel; Complete Time: 13:45 kb 01/11 13:03 Order name: CBC with Diff; Complete Time: 13:21 kb 01/11 13:03 Order name: LFT's; Complete Time: 13:45 kb 01/11 13:03 Order name: Magnesium; Complete Time: 13:45 kb 01/11 13:03 Order name: NT PRO-BNP; Complete Time: 13:45 kb 01/11 13:03 Order name: PT-INR; Complete Time: 13:21 kb 01/11 13:03 Order name: Troponin HS; Complete Time: 13:45 kb 01/11 13:03 Order name: XRAY Chest (1 view); Complete Time: 14:22 kb 01/11 18:24 Order name: EKG; Complete Time: 18:24 kb 01/11 13:03 Order name: Cardiac monitoring; Complete Time: 14:14 kb 01/11 13:03 Order name: EKG - Nurse/Tech; Complete Time: 13:10 kb 01/11 13:03 Order name: IV Saline Lock; Complete Time: 13:10 kb 01/11 13:03 Order name: Labs collected and sent; Complete Time: 13:10 kb 01/11 13:03 Order name: O2 Per Protocol; Complete Time: 14:14 kb 01/11 13:03 Order name: O2 Sat Monitoring; Complete Time: 14:14 kb 01/11 13:51 Order name: Vital Signs; Complete Time: 14:14 kb 01/11 16:26 Order name: Misc. Order: please obtain weight; Complete Time: 18:37 kb 01/11 18:24 Order name: EKG - Nurse/Tech; Complete Time: 18:37 kb EC:03 Rate is 51 beats/min. Rhythm is regular. QRS [place] is Normal. LA interval is prolonged kb at 224 msec. QRS interval is normal at 86 msec. QT interval is normal at 446 msec. Administered Medications: 14:20 Drug: Aspirin PO Chewable Tablet 324 mg PO once; 81 mg tablets x 4 Route: PO; db 18:00 Follow up: Response: No adverse reaction db 15:15 Drug: morphine IVP or IV 4 mg IVP once over 4 mins Route: IVP; Infused Over: 4 mins; db Site: right antecubital; 18:00 Follow up: Response: Pain is decreased db 15:15 Drug: Ondansetron IVP 4 mg IVP once; over 2 minutes Route: IVP; Site: right antecubital;db 18:00 Follow up: Response: No adverse reaction db 18:26 Drug: Ondansetron IVP 4 mg IVP once; over 2 minutes Route: IVP; Site: right antecubital;db 18:45 Follow up: Response: No adverse reaction db 18:28 Drug: morphine IVP or IV 4 mg IVP once over 4 mins Route: IVP; Infused Over: 4 mins; db Site: right antecubital; 18:45 Follow up: Response: Pain is decreased db Disposition Summary: 01/11/25 15:04 Hospitalization Ordered Notes: Hospitalization Status: Inpatient Admission kb Provider: Chung Khan Location: Telemetry/MedSurg (Inpatient) kb Condition: Stable kb Problem: new kb Symptoms: are unchanged kb Bed/Room Type: Standard kb Room Assignment: 201(01/11/25 17:48) dw Diagnosis - Chest pain, unspecified kb Forms: - Medication Reconciliation Form kb - SBAR form kb - Leadership Thank You Letter kb Addendum: 01/15/2025 11:19 I was immediately available for consultation during this patient's visit. I did not e c2 personally see the patient or discuss the patient with the NELDA. . Signatures: Dispatcher [employer] EDMS María Hwang, CARAMEL CUTTER HAND-C CARAMEL CUTTER HAND-Ckb Lexi Merida RN RN Marivel Erwin, BARBARA JIMENEZ iw Simi Hogue RN RN Kahlil Meraz MD MD ec2 Corrections: (The following items were deleted from the chart) 01/11 13:03 13:03 BASIC METABOLIC PANEL+C.LAB.BRZ ordered. EDMS EDMS 13:03 13:03 CBC+H.LAB.BRZ ordered. EDMS EDMS 13:03 13:03 HEPATIC FUNCTION+C.LAB.BRZ ordered. EDMS EDMS 13:03 13:03 MAGNESIUM+C.LAB.BRZ ordered. EDMS EDMS 13:03 13:03 PROBNP+C.LAB.BRZ ordered. EDMS EDMS 13:03 13:03 PROTIME (+INR)+COAG.LAB.BRZ ordered. EDMS EDMS 13:03 13:03 Troponin High Sensitivity+C.LAB.BRZ ordered. EDMS EDMS 13:03 13:03 Chest Single View+RAD.RAD.BRZ ordered. EDMS EDMS 13:04 13:01 Pt is a 79 year old female who presents for chest pain and shortness of breath kb that started today. States she has had chest pressure for the last couple of weeks, was seen by Young yesterday and had a stress test which failed. Reports Dr Vidal wanted to schedule a cardiac cath next. . kb 17:48 15:04 kb dw
--- NOTE | 2025-01-11 15:05 | ER ---
Nurse's Notes [facility] Name: Marielena Smiley Age: 79 yrs Sex: Female : 1945 Arrival Date: 01/11/2025 Time: 12:51 Bed 17 Private MD: Diagnosis: Chest pain, unspecified Presentation: 01/11 13:02 Chief complaint: Patient states: chest pain X 2 weeks, failed stress test with Dr. fanny Vidal, pain worse today and now having SOB. Coronavirus screen: At this time, the client does not indicate any symptoms associated with coronavirus-19. Ebola Screen: No symptoms or risks identified at this time. Initial Sepsis Screen: Does the patient meet any 2 criteria? No. Patient's initial sepsis screen is negative. Does the patient have a suspected source of infection? No. Patient's initial sepsis screen is negative. Risk Assessment: Do you want to hurt yourself or someone else? Patient reports no desire to harm self or others. Onset of symptoms was January 01, 2025. 13:02 Method Of Arrival: Wheelchair iw 13:02 Acuity: MIHIR 3 iw Historical: - Allergies: 13:03 Clindamycin; iw - PMHx: 13:03 hypertension (resolved); belkis-prince; Fibromyalgia; iw - PSHx: 13:03 Feet - Bilateral; hysterectomy; Appendectomy; Cholecystectomy; iw - Immunization history:: Adult Immunizations unknown. - Infectious Disease History:: Denies. - Social history:: Smoking status: Patient denies any tobacco usage or history of. Screenin:03 [facility] ED Fall Risk Assessment (Adult) History of falling in the last 3 months, db including since admission No falls in past 3 months (0 pts) Confusion or Disorientation No (0 pts) Intoxicated or Sedated No (0 pts) Impaired Gait No (0 pts) Mobility Assist Device Used No (0 pt) Altered Elimination No (0 pt) Score/Fall Risk Level 0 - 2 = Low Risk Oriented to surroundings, Maintained a safe environment. Abuse screen: Denies threats or abuse. Denies injuries from another. Nutritional screening: No deficits noted. Tuberculosis screening: No symptoms or risk factors identified. Assessment: 14:04 Reassessment: Patient appears in no apparent distress at this time. Patient and/or db family updated on plan of care and expected duration. Pain level reassessed. Patient is alert, oriented x 3, equal unlabored respirations, skin warm/dry/pink. General: Appears in no apparent distress. comfortable, Behavior is calm, cooperative. Pain: Complains of pain in chest Pain does not radiate. Pain: Pain began gradually. Neuro: Level of Consciousness is awake, alert, obeys commands, Oriented to person, place, time, situation. Cardiovascular: Capillary refill < 3 seconds. 16:00 Reassessment: Patient appears in no apparent distress at this time. Patient and/or db family updated on plan of care and expected duration. Pain level reassessed. Patient is alert, oriented x 3, equal unlabored respirations, skin warm/dry/pink. Patient states feeling better. Patient states symptoms have improved. 17:00 Reassessment: Patient appears in no apparent distress at this time. Patient and/or db family updated on plan of care and expected duration. Pain level reassessed. Patient is alert, oriented x 3, equal unlabored respirations, skin warm/dry/pink. 18:22 Reassessment: Patient and/or family updated on plan of care and expected duration. Pain db level reassessed. Patient is alert, oriented x 3, equal unlabored respirations, skin warm/dry/pink. PATIENT COMPLAINED OF CHEST PAIN. PROVIDER NOTIFIED. REPEAT EKG AND MORPHINE/ZOFRAN GIVEN SEE DEC. Vital Signs: 14:00 BP 143 / 68; Pulse 53; Resp 16; Temp 98.4; Pulse Ox 100% ; db 15:30 BP 160 / 81; Pulse 54; Resp 17; Pulse Ox 97% ; db 16:28 Weight 68.04 kg; kb 16:30 BP 155 / 68; Pulse 50; Resp 14; Pulse Ox 96% ; db 17:00 BP 125 / 74; Pulse 63; Resp 18; Pulse Ox 99% on R/A; db 17:30 BP 172 / 60; Pulse 53; Resp 16; Pulse Ox 100% ; db 18:00 BP 114 / 78; Pulse 53; Resp 15; Pulse Ox 96% ; db 18:30 BP 133 / 84; Pulse 58; Resp 17; Pulse Ox 97% on R/A; db ED Course: 12:52 Patient arrived in ED. mr 12:57 María Hwang FNP-C [facility]. kb 12:57 Kahlil Aponte MD is Attending Physician. kb 13:03 Triage completed. iw 13:08 Inserted saline lock: 20 gauge in right antecubital area, using aseptic technique. ty Blood collected. Flushed with 10 mL NS. 13:08 Initial lab(s) drawn, by me, sent to lab. EKG done, by ED staff, reviewed by María WHITING. 13:10 CBC with Diff Sent. ty 13:10 LFT's Sent. ty 13:10 Basic Metabolic Panel Sent. ty 13:10 Magnesium Sent. ty 13:10 NT PRO-BNP Sent. ty 13:10 PT-INR Sent. ty 13:10 Troponin HS Sent. ty 13:55 Simi Hogue, RN is Primary Nurse. db 14:03 Arm band placed on Patient placed in an exam room. db 14:04 Patient has correct armband on for positive identification. Bed in low position. Call db light in reach. Side rails up X 1. Provided Education on: DISCHARGE AND FOLLOWUP. Client placed on continuous cardiac and pulse oximetry monitoring. NIBP monitoring applied. alarm security or surveillance monitor on. Pulse ox on. NIBP on. Warm blanket given. 14:11 XRAY Chest (1 view) In Process Unspecified. EDMS 15:04 Chung Khan MD is Hospitalizing Provider. kb 18:40 Patient maintains SpO2 saturation greater than 95% on room air. db 18:40 No provider procedures requiring assistance completed. Patient admitted, IV remains in db place. Administered Medications: 14:20 Drug: Aspirin PO Chewable Tablet 324 mg PO once; 81 mg tablets x 4 Route: PO; db 18:00 Follow up: Response: No adverse reaction db 15:15 Drug: morphine IVP or IV 4 mg IVP once over 4 mins Route: IVP; Infused Over: 4 mins; db Site: right antecubital; 18:00 Follow up: Response: Pain is decreased db 15:15 Drug: Ondansetron IVP 4 mg IVP once; over 2 minutes Route: IVP; Site: right antecubital;db 18:00 Follow up: Response: No adverse reaction db 18:26 Drug: Ondansetron IVP 4 mg IVP once; over 2 minutes Route: IVP; Site: right antecubital;db 18:45 Follow up: Response: No adverse reaction db 18:28 Drug: morphine IVP or IV 4 mg IVP once over 4 mins Route: IVP; Infused Over: 4 mins; db Site: right antecubital; 18:45 Follow up: Response: Pain is decreased db Medication: 14:03 VIS not applicable for this client. db Outcome: 15:04 Decision to Hospitalize by Provider. kb 18:23 Admitted to ER Hold. Please see [facility] for further documentation. db 18:23 Condition: stable 18:23 Instructed on the need for admit, 19:04 Patient left the ED. db Signatures: Dispatcher [employer] EDMS María Hwang, VICE PRESIDENT BIOSTATISTICS-C VICE PRESIDENT BIOSTATISTICS-Ckb Stefani Alejandro, Reg Reg mr Marivel Bryson, RN RN iw Simi Hogue, RN RN db Macario Valentine Corrections: (The following items were deleted from the chart) 14:03 14:03 EKG completed in triage. Results shown to MD. db db 18:44 17:00 BP 113 / 97; Pulse 59bpm; Resp 14bpm; Pulse Ox 100%; db db
[2025-01-11] MEDS ORDERED: ONDANSETRON 4 MG/2 ML VIAL ONE ×2 (15:15→18:19)
[2025-01-11] MEDS ORDERED: MORPHINE 4 MG/ML SYR ONE ×2 (15:15→18:19)
[2025-01-11 18:01] VITALS: BMI 24.2
[2025-01-11] MEDS ORDERED: cloNIDine HCL 0.1 MG TAB PO PRN (19:45)
[2025-01-11] MEDS ORDERED: ONDANSETRON 4 MG/2 ML VIAL IV PRN (19:49)
[2025-01-11] MEDS: LORATADINE 10 MG TAB ONE (21:39)
[2025-01-11] MEDS: TRAZODONE 50 MG TABLET PO SCH (21:47)
[2025-01-11] MEDS: LORATADINE 10 MG TAB PO SCH (21:47)
[2025-01-11] MEDS: AMLODIPINE 5 MG TAB PO SCH (21:47)
[2025-01-11] MEDS: DICYCLOMINE HCL 10 MG CAP PO SCH (21:47)
[2025-01-11] MEDS: GABAPENTIN 100 MG CAP PO SCH (21:47)
[2025-01-12 06:17] LABS: Absolute Basophils 0.1 K/uL (0-0.5); Absolute Eosinophils 0.1 K/uL (0-0.5); Absolute Lymphocytes (CBC) 1.7 K/uL (0.7-4.9); Absolute Monocytes 0.7 K/uL (0.1-1.3); Absolute Neutrophil 2.4 K/uL (1.8-8.0); Basophils % 1.2 % (0-1.3); Eosinophils % 2.4 % (0-4.4); Hematocrit 36.6 % (36.0-45.0); Hemoglobin 12.5 g/dL (12.0-15.0); Lymphocytes % 34.7 % (15.3-44.8); MCHC 34.2 g/dL (32.0-36.0); MCV 93.7 fL (80-100); MPV 8.2 fL (7.6-11.3); Monocytes % 14.5 % (3.3-12.3); Neutrophils % 47.2 % (41.7-73.7); Nucleated Red Blood Cells % 0.2 % (0-0); Platelets 218 thou/uL (152-406); RBC Red Blood Cell Count 3.91 M/uL (3.86-4.86); Red Cell Distribution Width 13.1 % (12.1-15.2)
[2025-01-12 06:36] LABS: Anion Gap 5.9 mEq/L (5.0-15.0); Potassium 3.9 mEq/L (3.5-5.1)
[2025-01-12] MEDS: PANTOPRAZOLE 40MG TABLET PO SCH (06:42)
[2025-01-12] MEDS: MECLIZINE HCL 12.5 MG TAB PO ONE (07:03)
[2025-01-12] MEDS: NA CHLORIDE 0.9% 1,000 ML IV SCH (07:04)
[2025-01-12] MEDS: ENOXAPARIN 80 MG/0.8 ML SQ SCH (09:46)
[2025-01-12] MEDS: SERTRALINE HCL 50 MG TAB PO SCH (09:46)
[2025-01-12] MEDS: ASPIRIN EC 81 MG TAB PO SCH (09:46)
--- NOTE | 2025-01-12 12:42 | HP ---
Date of Admission: 01/12/2025 Chief Complaint: Chest pain. History Of Present Illness: This is a 79-year-old pleasant female patient, who was having chest pain on an outpatient basis and was referred to see staff respiratory therapist and saw Dr. Vidal and had a stress test done this week on which came back abnormal and yesterday the patient says that her chest pa in that she has been having lately got worse, so she came into emergency room and after she was evalu ated, she was admitted to hospital. She describes her pain as heaviness, pressure type of feeling in the center of the chest, associated with some shortness of breath, but denies any sweating, nausea, vomiting. No radiation of pain to any other body part. After she was evaluated in ER, I was contact ed requesting admission to hospital and the patient was admitted to hospital with unstable angina. Allergies: TO CLINDAMYCIN. Medications: Amlodipine 5 mg 2 times a day, clonidine 0.1 mg 3 times a day as needed for systolic bl ood pressure more than 160, dicyclomine 10 mg 2 times a day, gabapentin 100 mg 3 times a day, pantopr azole 40 mg daily, tramadol as needed for pain, trazodone 100 mg at bedtime, sertraline 100 mg tablet takes 1-1/2 tablets daily. Review of Systems: Cardiovascular: As mentioned above. All other systems reviewed and negative. Past Medical History: Significant for restless legs syndrome, tinnitus, hypertension, hyperlipidemia , fibromyalgia, anxiety, depression, insomnia, osteoarthritis at multiple sites. Past Surgical History: Tonsillectomy, cholecystectomy, appendectomy, hysterectomy, left ankle and fo ot surgery. Family History: Father at age 45 with liver disease. Mother at age 83 years with COPD and hypertension. Brother has bladder cancer, coronary artery disease, hypertension, and myocardial inf arction. Social History: Negative for smoking. Use of alcohol, occasional. Physical Examination: Vital Signs: Temperature 98.3, pulse 53, respiratory rate 16, blood pressure 95/50, oxygen saturatio n 93% on room air. Height 5 feet 6 inches, weight 150 pounds. Last blood pressure this morning was 130/68. General: Awake, alert, oriented, not in distress. HEENT: Head atraumatic, normocephalic. Conjunctivae nonerythematous. Sclerae white. Mouth, no thr ush or edema noted. Ears/Nose, no mass, lesion, discharge noted. Neck: Supple. No JVD, lymph nodes, bruit, thyromegaly noted. Lungs: Bilateral good equal air entry. Clear to auscultation. No rhonchi. No rales. Heart: Normal heart sounds, no murmur or gallop. Abdomen: Soft, bowel sounds normal. No guarding, rigidity, tenderness, mass, hepatosplenomegaly, dis tention, or bruit noted. Extremities: No leg edema. No calf tenderness. Skin: No rash, ulcer, cellulitis. Lymphatics: No lymph node enlargement in neck, supraclavicular, infraclavicular region. Neuro: No focal neurological deficit. Chest: Unremarkable. External Genitalia: Deferred. Rectal: Deferred. Laboratory Data: Yesterday, WBC 5.8, hemoglobin 13.7, platelets 261. This morning, WBC 5, hemoglobi n 12.5, platelets 218. For chemistry yesterday, sodium 137, potassium 3.8, chloride 106, bicarb 27, BUN 17, creatinine 0.82, glucose 88. Liver function tests unremarkable. Initial troponin 3.1, secon d troponin 4.7, and third troponin 6.6. This morning, sodium 141, potassium 3.9, chloride 109, bicar b 30, BUN 18, creatinine 0.95, glucose 98, total cholesterol 135, triglyceride 85, LDL 61, HDL 57. C hest x-ray, no acute cardiopulmonary changes. EKG, no acute ST-T changes, normal sinus rhythm. Impression: 1. Unstable angina. 2. Hypertension. 3. Hyperlipidemia. 4. Anxiety. 5. Depression. 6. Osteoarthritis, multiple sites. 7. Insomnia. 8. Fibromyalgia. 9. Restless legs syndrome. Plan: We will go ahead and admit the patient to hospital for further evaluation and management of th is problem. The patient is appropriate for inpatient and [facility] We will consult Cardiology for her unstable angina problem and Cardiology is planning to do cardi ac cath on her. Meanwhile, we will continue aspirin and Lovenox therapy per order. For hypertension , we will monitor blood pressure and continue antihypertensive medication per order with instruction to hold if systolic blood pressure less than 120. For her fibromyalgia, she is on gabapentin, which we will continue that per order. For depression, we will continue her sertraline per order. No need for further intervention. For insomnia, she takes trazodone and we will continue that per order. S he takes pantoprazole for gastroesophageal reflux disease and no need for further intervention for it except to continue medications. Early this morning before I saw her, nurse contacted and informed t he patient was having some dizziness. Her systolic blood pressure was around 98 and at that time, IV fluid 100 cc/hour x1 liter normal saline bag was ordered and meclizine 25 mg p.o. x1 dose was ordere d. By the time I saw her this morning, she was feeling much better. Total time spent 80 minutes including communication with emergency room physician, review of emergenc y room visit record, review of last office visit record from 12/06/2024, and performing today's evalu ation and management. JODI/DUTCH Voice ID: [id number]
[2025-01-12] MEDS: ACETAMINOPHEN 500 MG TAB PO PRN (20:40)
--- NOTE | 2025-01-13 16:39 | CON ---
Date of Consultation: 01/13/2025 Reason For Consultation: Chest pain. History Of Present Illness: 79-year-old female, comes in with chest pain, retrosternal, radiates to the shoulder. She apparently had a stress test recently that was abnormal and there was a plan for c oronary angiogram. She is coming in with chest pain, pressure like, radiates to the shoulder along w ith some dyspnea on exertion. At the present time, she is pain free. Past Medical History: Hypertension, dyslipidemia, fibromyalgia. Medications: Refer to reconciliation sheet for detailed list. Past Surgical History: Tonsillectomy, cholecystectomy, appendectomy, and hysterectomy and foot surge ry. Allergies: CLINDAMYCIN. Family History: No premature coronary artery disease or cancer. Social History: She does not smoke or drink. Does not use any drugs. Review of Systems: All systems were reviewed and they were negative except as mentioned in the HPI. Physical Examination: Vital Signs: Reviewed. Head and Neck: Pupils are equal, reactive to light. Intact eye movements. No JVD. No cervical lym phadenopathy. Neck is supple. Thyroid is not enlarged. Lungs: Clear to auscultation bilaterally. No rhonchi, wheezing, or crackles. No accessory muscle u se. Heart: Regular rate and rhythm. No extra sounds. Abdomen: Soft, nontender. Bowel sounds positive. No organomegaly. No masses or hernia. No rigidi ty or rebound. Extremities: No edema, clubbing, or cyanosis. Intact pulses. Skin: No rash. No nodules. Neurologic: Alert, awake, and oriented x3. No acute focal deficits appreciated. Investigations: Troponins x3 are negative. BUN 18, creatinine 0.95, and hemoglobin 12.5. Assessment And Recommendations: 1. Unstable angina. She is having chest pain. Known abnormal stress test. Keep NPO past midnight f or coronary angiogram tomorrow morning and continue baby aspirin. To please hold the last dose of Lo venox tonight in preparation for a heart catheterization tomorrow. 2. Hyperlipidemia. Continue Lipitor 40 mg q.h.s. 3. Hypertension. Blood pressure is well controlled. Continue home medications. 4. Bradycardia, asymptomatic. We will monitor. SR/MODL Voice ID: [id number] Report ID: [id number]
[2025-01-13] MEDS: TRAMADOL HCL 50 MG TAB PO PRN (20:23)
[2025-01-13] MEDS: ATORVASTATIN 40 MG TAB PO SCH (20:24)
--- NOTE | 2025-01-14 05:22 | PN ---
Date of Progress Note: 01/13/2025 Subjective: The patient was seen this morning for followup. She was noted to be ambulating in the h allway when I saw her. She has had intermittent chest pain as she reports since yesterday, but this relieved without any intervention as she reports. No nausea, no vomiting. Objective: Vital Signs: Reviewed. HEENT: Unremarkable. Lungs: Clear to auscultation. Cardiac: Heart sounds normal. Abdomen: Soft. Bowel sounds normal. No guarding, rigidity, tenderness, distention. Extremities: No leg edema. Impression: 1. Unstable angina. 2. Hypertension. 3. Hyperlipidemia. Plan: We will go ahead and continue current medications. Continue aspirin, statin therapy as well a s Lovenox, and we will keep her n.p.o. after midnight for possible cardiac cath procedure tomorrow. Different possible scenario explained to patient including after the cardiac cath gets done depending on the finding, either it could be false alarm as I call it means her coronaries are normal or she h as disease, which will require either medical management or intervention like angioplasty or bypass s urgery. Obviously, any of those today will be clear after we do the cardiac cath procedure. All the se details were discussed with her. JODI/MODL Voice ID: [id number] Report ID: [id number]
[2025-01-14] MEDS ORDERED: LIDOCAINE 1% 20 ML MDV ONE (09:14)
[2025-01-14] MEDS ORDERED: HEPA 1000U/500MLS 2,000 UNIT/1,000 ML BAG IV ONE (09:14)
[2025-01-14] MEDS ORDERED: HEPARIN 5000 UNIT/ML 1 ML VIAL ONE (09:14)
[2025-01-14] MEDS ORDERED: NA CHLORIDE 0.9% 500 ML ONE (09:33)
[2025-01-14] MEDS ORDERED: MIDAZOLAM HCL 2 MG/2 ML INJ ONE (09:53)
[2025-01-14] MEDS ORDERED: FENTANYL CITR 100 MCG/2 ML ONE (09:53)
--- NOTE | 2025-01-14 10:39 | P.PN ---
Subjective Date of Service: 01/14/25 Subjective: No new changes, No C/O voiced, Tolerating diet, Ambulating, Improving Review of Systems 10-point ROS is otherwise unremarkable Physical Examination - Vital Signs Temperature: 97.9 F Blood Pressure: 130/63 Pulse: 50 Respirations: 14 Pulse Ox (%): 95 - Physical Exam General: Alert, In no apparent distress HEENT: Atraumatic, PERRLA, EOMI Neck: Supple, JVD not distended Respiratory: Clear to auscultation bilaterally, Normal air movement Cardiovascular: Regular rate/rhythm, Normal S1 S2 Gastrointestinal: Normal bowel sounds, No tenderness Musculoskeletal: No tenderness Integumentary: No rashes Neurological: Normal speech, Normal tone, Normal affect Lymphatics: No axilla or inguinal lymphadenopathy - Studies Medications List Reviewed: Yes Assessment And Plan - Current Problems (Diagnosis) (1) Unstable angina Current Visit: Yes Status: Acute Plan: Patient had coronary angiogram done today that shown mild non obstructive CAD her angina symptoms can be prinzmetal vs anxiety related continue Norvasc 5 mg daily add Imdur 30 mg daily continue risk factors modifications continue to follow up with cardiology as outpatient. (2) HTN (hypertension) Current Visit: Yes Status: Acute Plan: adjust medications as above.
--- NOTE | 2025-01-14 12:03 | EKG ---
Test Date: 2025-01-12 Test Time: 19:52:57 Autocutter: AUST MEASUREMENT RESULTS: Intervals: Rate: 50 WI: 232 QRSD: 88 QT: 474 QTc: 432 [place]: P: 47 WI: 232 QRS: 39 T: 69 INTERPRETIVE STATEMENTS: Sinus bradycardia with 1st degree AV block Otherwise normal ECG Compared to ECG 01/12/2025 05:40:00 Myocardial infarct finding no longer present Electronically Signed On 01-14-25 12:00:05 CDT by Nitin Vidal
--- NOTE | 2025-01-14 12:05 | EKG ---
Test Date: 2025-01-12 Test Time: 05:40:00 Business Technology Analyst: REFUGIO MEASUREMENT RESULTS: Intervals: Rate: 39 VA: 242 QRSD: 88 QT: 530 QTc: 426 [place]: P: 48 VA: 242 QRS: 41 T: 63 INTERPRETIVE STATEMENTS: Marked sinus bradycardia with 1st degree AV block Low voltage QRS Cannot rule out Anterior infarct, age undetermined Abnormal ECG Compared to ECG 01/11/2025 18:34:32 Low QRS voltage now present Myocardial infarct finding now present Sinus arrhythmia no longer present Electronically Signed On 01-14-25 12:01:33 CDT by Nitin Vidal
--- NOTE | 2025-01-14 12:08 | EKG ---
Test Date: 2025-01-11 Test Time: 18:34:32 Tutoring Assistant: CHIRAG MEASUREMENT RESULTS: Intervals: Rate: 42 [place]: 234 QRSD: 94 QT: 520 QTc: 434 [place]: P: 56 [place]: 234 QRS: 42 T: 63 INTERPRETIVE STATEMENTS: Marked sinus bradycardia with sinus arrhythmia with 1st degree AV block Abnormal ECG Compared to ECG 01/11/2025 12:59:33 No significant changes Electronically Signed On 01-14-25 12:02:26 CDT by Nitin Vidal
--- NOTE | 2025-01-14 12:10 | EKG ---
Test Date: 2025-01-11 Test Time: 12:59:33 Residential Tech: YAMILETH MEASUREMENT RESULTS: Intervals: Rate: 51 IA: 224 QRSD: 86 QT: 484 QTc: 446 [place]: P: 45 IA: 224 QRS: 30 T: 64 INTERPRETIVE STATEMENTS: Sinus bradycardia with sinus arrhythmia with 1st degree AV block Low voltage QRS Borderline ECG Compared to ECG 07/26/2024 10:07:39 Low QRS voltage now present Electronically Signed On 01-14-25 12:02:55 CDT by Nitin Vidal
[2025-01-14 14:35] VITALS: O2SAT 96
[2025-01-14 16:05] VITALS: BP 138/88; TEMP 97.5
--- NOTE | 2025-01-14 20:53 | OP ---
Date of Procedure: 01/14/2025 Surgeon: Nitin Vidal Procedure Performed: Selective coronary angiogram. Indication For Procedure: Unstable angina, abnormal stress test. Complications: None. Estimated Blood Loss: Less than 50 cc. Access: Right radial, closed by TR band. Sedation Time: 20 minutes with 1 of Versed and 25 fentanyl. Description Of Procedure: After risks, benefits, and alternatives were explained to the patient, the patient agreed to proceed with procedure and signed informed consent. The patient was moved back to the laborer powerhouse, prepped and draped in sterile fashion. Time-out was performed. Sedation was administ ered. Next, the right radial access was obtained using ultrasound-guided micropuncture technique. A [place] 4 catheter was advanced over a J-wire to the aortic root. Selective angiogram was done using the same catheter. At the end of procedure, catheter was removed over the J-wire. Sheath was remove d. TR band was applied. Hemostasis was achieved, and the patient was moved back to recovery in stab le condition. Findings: 1. Left main: Normal. 2. LAD: Proximal mild luminal irregularities with mid diffuse 30% to 40% disease, very tortuous olaf ry, then mild luminal irregularities. 3. Left circumflex: Mild luminal irregularities. 4. RCA: Proximal mild luminal irregularities with mid 30% disease, then mild luminal irregularities. Assessment: Mild nonobstructive coronary artery disease. Plan: To continue medical management. RAMON/DUTCH Voice ID: [id number] Report ID: [id number]
--- NOTE | 2025-01-15 05:28 | DS ---
Date of Discharge: 01/14/2025 Disposition: Discharged to go home. Physical Examination: HEENT: Unremarkable. Lungs: Clear to auscultation. Heart: Sounds normal. Abdomen: Soft. Bowel sounds normal. No guarding, rigidity, tenderness, distention. Extremities: No leg edema. Discharge Medications And Instructions: 1. Continue all prior home medication. 2. Atorvastatin 40 mg p.o. daily at bedtime. 3. Follow up at office next week. 4. Isosorbide mononitrate 30 mg p.o. daily. 5. Follow up with svp group director in 2 weeks. Laboratory Data: Upon admission; WBC 5.8, hemoglobin 13.7, platelets 261. Day after admission; WBC 5, hemoglobin 12.5, platelets 218. Chemistry upon admission; sodium 137, potassium 3.8, chloride 106 , bicarb 27, BUN 17, creatinine 0.82. Liver function tests unremarkable. Glucose 88. Initial tropo linda 3.1, second troponin 4.7, third troponin 6.6. Lipid profile from 01/12/2025, triglyceride 85, to iona cholesterol 135, LDL 61, HDL 57. Hospital Course: This is a 79-year-old pleasant female patient who came into emergency room with com plaints of chest pain. Please see dictated H and P for more information. Recently, the patient had outpatient stress test, which was abnormal and she came into emergency room with worsening of chest p ain complaint and was evaluated and admitted to the hospital. Her DE was ruled out by getting serial cardiac enzymes. Cardiology consultation was requested. The patient had a cardiac cath done today, which showed mild coronary artery disease and did not require any intervention. With that, cardiolo gist recommended for the patient to start on isosorbide mononitrate. High-dose statin therapy was st arted during this hospitalization with atorvastatin 40 mg, which we will continue that on outpatient basis. I have instructed her to take her statin therapy on a daily basis as prescribed and I will se nd prescription from the office along with isosorbide. Final Diagnoses: 1. Unstable angina. 2. Coronary artery disease. 3. Hypertension. 4. Hyperlipidemia. 5. Anxiety. 6. Depression. 7. Osteoarthritis, multiple sites. 8. Insomnia. 9. Fibromyalgia. 10. Restless legs syndrome. Total time spent today, 40 minutes. JODI/MODL Voice ID: [id number] Report ID: [id number]
== END 2025-01-14 18:24 | disposition home or self-care (01) | DRG 287 ==
LOC: ER 12:51 → ERHOLD 16:29 → 2ND 18:28
PROVIDERS: ADMIT Internal Medicine; ATTEND Internal Medicine
PROC: B2111ZZ Fluoroscopy of Multiple Coronary Arteries using Low Osmolar Contrast (ICD-10-PCS; principal; 2025-01-14)
DX: I25.110 Atherosclerotic heart disease of native coronary artery with unstable angina pectoris (principal); E78.5 Hyperlipidemia, unspecified; I10 Essential (primary) hypertension; G25.81 Restless legs syndrome; M15.9 Polyosteoarthritis, unspecified; F41.8 Other specified anxiety disorders; M79.7 Fibromyalgia; G47.00 Insomnia, unspecified
CPT/HCPCS: 36415; 71045; 76937; 80048; 80061; 80076; 83735; 83880; 84484; 85025; 85610; 93005; 93454; 96374; 96375; 99152; 99153; 99285; C1893; J1644; J2003; J2250; J2405; J3010; J7030; J7040; J8597; Q9966